=== PATIENT | female | born 1980 | race African-American/Black ===

== ENCOUNTER 2017-03-09 19:39 | Inpatient (IN) | payer OTHER, SELFPAY ==
[~2017-03-09 19:39] MED LIST: ISOVUE-370 76%-LOCM 1 ML ONE
[2017-03-09] MEDS ORDERED: Ondansetron HCl/PF 4 MG/2 ML Vial ONE (20:45)
[2017-03-09 20:48] LABS: #Eosinphils 0.1 thou/uL (0.0-0.7); #Lymphocytes 1.8 thou/uL (1.20-3.40); #Monocytes 0.4 thou/uL (0.11-0.59); #Neutrophils 5.2 thou/uL (1.40-6.50); %Basophils 0.2 % (0.0-1.0); %Eosinophils 0.9 % (0.0-10.0); %Lymphocytes 24.2 % (21.0-51.0); %Monocytes 5.7 % (0.0-10.0); Hematocrit 30.2 % (36.0-47.0); Mean Platelet Volume 7.5 fL (7.4-10.4); Red Blood Cell (RBC) Count 3.74 mill/uL (4.20-5.40); White Blood Cell (WBC) Count 7.6 thou/uL (4.8-10.8)
[2017-03-09 20:50] LABS: Bilirubin Negative (Negative); Blood, Urine Large (Negative); Glucose, Urine (Dipstick) 500 mg/dL (Negative); Ketone, Urine Negative (Negative); Nitrite Negative (Negative); Protein, Urine (Dipstick) 100 mg/dL (Neg-Trace); Urobilinogen 0.2 mg/dL (0.2-1.0)
[2017-03-09 20:52] LABS: Bacteria/HPF Rare-Few HPF (None Seen); Hyaline Casts/LPF 7-10 HYALINE CAST LPF (0-3 Hyaline); Squamous Epithelial 21-50 HPF (0-3)
[2017-03-09 21:01] LABS: Anion Gap 8 mmol/L (-14-95); T. Carbon Dioxide 20.8 mmol/L (1.0-85.0); pH (Venous) 7.379 (7.35-7.45); vO2 Saturation-calc 75.8 % (0.0-100.0)
[2017-03-09 21:02] LABS: RBC/HPF 21-50 HPF (0-3)
[2017-03-09 21:10] LABS: ALT (SGPT) Less than 7 U/L (8-55); AST (SGOT) 12 U/L (5-34); Alkaline Phosphatase 125 U/L (40-150); Anion Gap 17 mmol/L (10-20); BUN (Urea Nitrogen) 13 mg/dL (7.0-18.7); Bilirubin, Total Less than 0.2 mg/dL (0.2-1.2); Calc. Creatinine Clearance 0 mL/min (70-130); Calcium 8.9 mg/dL (7.8-10.44); Carbon Dioxide 18 mmol/L (22-29); Chloride 102 mmol/L (98-107); Estimated GFR-MDRD 66; Globulin 4.5 g/dL (2.4-3.5); Lipase 514 U/L (8-78); Magnesium 1.1 mg/dL (1.6-2.6); Protein, Total 7.9 g/dL (6.0-8.3)
--- NOTE | 2017-03-09 21:22 | CT ---
CT OF THE ABDOMEN AND PELVIS WITH IV CONTRAST 03/09/17 INDICATION: History of abdominal pain and pancreatitis. COMPARISON: Prior exam dated 02/12/17. FINDINGS: There is mild left basilar atelectasis. Peripheral infarcts involving the liver are stable. The gallbladder is surgically absent. The postsurgical change of a gastric bypass similar. There is mild inflammatory stranding surrounding the pancreas which appears slightly improved from t he comparison study. No drainable fluid collection is grossly evident. The adrenal glands, spleen, a nd kidneys appear within normal limits. There is a fibroid uterus within the lower pelvis. The bladder, rectum and perirectal soft tissues are unremarkable. No free fluid is evident. Small shankar wel is of normal caliber. No acute osseous abnormality is evident. Scattered degenerative and osteoa rthritic changes present. IMPRESSION: 1. Peripancreatic inflammatory stranding appears slightly less prominent than on the comparison study dated 02/12/17. There is persistent stranding suspicious for ongoing pancreatitis. No drainabl e fluid collection is evident. 2. Stable hepatic infarcts. 3. Fibroid uterus. 4. Other chronic findings as above. POS: EVER
[2017-03-09] MEDS ORDERED: Magnesium Sulfate 2 GM/100 ML BAG ONE (21:26)
[2017-03-09] MEDS ORDERED: Insulin Regular 300 UNITS/3 ML VIAL ONE (21:26)
--- NOTE | 2017-03-09 22:18 | PDOC.EVN ---
Event Note - Event Note Event Note: [id number] h&p dictated 1. Acute on chronic pancreatitis 2. Hypomagnesemia 3. h/o hpl 4. h/o hiv plan: see orders
[2017-03-09] MEDS ORDERED: Ondansetron HCl/PF 4 MG/2 ML Vial IVP PRN (22:19)
[2017-03-09] MEDS ORDERED: Dextrose 5% in Water 1,000 ML IV PRN (22:26)
[2017-03-09] MEDS ORDERED: Dextrose 50% Abboject 50 ML SYRINGE SLOW IVP PRN (22:26)
[2017-03-09] MEDS ORDERED: cefTRIAXone\\ROCEPHIN 1 GM VIAL ONE (22:43)
[2017-03-09] MEDS ORDERED: Sodium Chloride 0.9% 100 ML ONE (22:44)
[2017-03-09 23:06] LABS: ALT (SGPT) 7 U/L (8-55); AST (SGOT) 9 U/L (5-34); Alkaline Phosphatase 115 U/L (40-150); Anion Gap 16 mmol/L (10-20); BUN (Urea Nitrogen) 12 mg/dL (7.0-18.7); Bilirubin, Total Less than 0.2 mg/dL (0.2-1.2); Calc. Creatinine Clearance 0 mL/min (70-130); Calcium 8.6 mg/dL (7.8-10.44); Carbon Dioxide 18 mmol/L (22-29); Chloride 103 mmol/L (98-107); Estimated GFR-MDRD 73; Globulin 4.2 g/dL (2.4-3.5); Protein, Total 7.3 g/dL (6.0-8.3)
[2017-03-09] MEDS ORDERED: Fentanyl 100 MCG/2 ML VIAL ONE (23:35)
[2017-03-09] MEDS ORDERED: Magnesium Sulfate 4 GM in Sodium Chloride 0.9% 250 ML 250 ML IVPB SCH (23:59)
[2017-03-10 01:18] VITALS: BMI 35.3
[2017-03-10] MEDS: Sodium Chloride 0.9% 1,000 ML IV SCH ×4 (01:30→20:15)
[2017-03-10 05:49] LABS: #Eosinphils 0.1 thou/uL (0.0-0.7); #Lymphocytes 1.5 thou/uL (1.20-3.40); #Monocytes 0.4 thou/uL (0.11-0.59); #Neutrophils 3.7 thou/uL (1.40-6.50); %Basophils 0.8 % (0.0-1.0); %Lymphocytes 25.7 % (21.0-51.0); %Monocytes 7.6 % (0.0-10.0); Hematocrit 28.8 % (36.0-47.0); Mean Platelet Volume 7.7 fL (7.4-10.4); Red Blood Cell (RBC) Count 3.55 mill/uL (4.20-5.40); White Blood Cell (WBC) Count 5.8 thou/uL (4.8-10.8)
--- NOTE | 2017-03-10 07:20 | HP ---
DATE OF ADMISSION: 03/09/2017 CHIEF COMPLAINT: Abdominal pain. HISTORY OF PRESENT ILLNESS: Patient is a 37-year-old female with past medical history of hypertension; hyperlipidemia; HIV; pancreatitis; diabetes mellitus, type 2; noncompliance. Patient now came to ER due to abdominal pain, started all of sudden 3 days back, in epigastric and right upper quadrant, and mid abdominal pain, radiating to back, 10/10, cramping kind of pain, worsens with food, some relieve with pain medication. Complains of nausea and vomiting. Denies any fever. Denies any chills. Denies any chest pain. Denies any trouble breathing. Denies any dizziness. Denies any lightheadedness. PAST MEDICAL HISTORY: As per HPI. PAST SURGICAL HISTORY: Cholecystectomy, pancreatic cyst drainage done in couple of months back. SOCIAL HISTORY: Positive for smoking. Positive for drugs, last use 1 or 2 weeks back. Denies any alcohol. FAMILY HISTORY: Denies any heart problems. REVIEW OF SYSTEMS: Constitutional: Denies any fever. Denies any chills. Eyes : No vision problems. Ears: Denies any hearing loss. Neck: Denies any neck pain. Cardiovascular System: Denies any chest pain. Denies any palpitations. Respiratory System: Denies any cough. Gastrointestinal System: Positive for abdominal pain. Positive for nausea and vomiting. Genitourinary: Denies dysuria. Integumentary: Denies any rash. Psychiatric: Denies anxiety. All other review of systems are reviewed and are negative. PHYSICAL EXAMINATION: CONSTITUTIONAL/VITAL SIGNS: At the time of H and P performed, blood pressure is 130/70, afebrile, respiration rate 18, pulse oximetry 97% on room air. GENERAL APPEARANCE: The patient appears comfortable. HEENT: Pupils are equal and round. Anterior nares patent. Nose, normal. Teeth, intact. Tongue is moist. NECK: Supple, no JVD. CARDIOVASCULAR SYSTEM: S1 and S2 present. Regular rate and rhythm. No murmurs , no rubs, no gallops. RESPIRATORY SYSTEM: No wheezing, no rhonchi. Breath sounds present bilaterally. GASTROINTESTINAL: Abdomen is soft, nontender, no guarding, no organomegaly, no masses felt, mild tender to palpate the epigastric region. PSYCHIATRIC: Mood is appropriate at this time. INTEGUMENT: No obvious rash seen. GENITOURINARY: No suprapubic tenderness. No angle tenderness. LABORATORY DATA: At the time of H and P performed, sodium 136, potassium 2.8, chloride 108, CO2 of 18, BUN of 8, creatinine 1.12, calcium 1.08, glucose 426, albumin 3.4, globulin 4.5, lipase 514, mag 1.1. CT, positive for some mild pancreatitis. ASSESSMENT AND PLAN: The patient is a 37-year-old female. 1. Acute on chronic pancreatitis, keep the patient n.p.o. except medications and ice chips. We will start the patient on IV fluids, repeat lipase in the morning. Monitor the patient closely. Plan to consult GI to patient. 2. Hypomagnesemia. Replace mag. 3. Hypocalcemia and mild metabolic acidosis. Plan to start patient on p.o. sodium bicarbonate and will give one gram of calcium gluconate also. 4. History of diabetes mellitus, type 2. Monitor blood sugars, continue on insulin sliding scale. 5. History of human immunodeficiency virus. Continue home medications. 6. History of hypertension. Continue blood pressure medications. The case was discussed in detail with the patient. Patient is a FULL CODE. MTDD
[2017-03-10] MEDS: Heparin 5,000 UNITS/ML VIAL SC SCH ×3 (08:15→21:48)
[2017-03-10] MEDS: Pancrelipase DR 12000 1 CAP PO SCH ×4 (08:17→17:40)
[2017-03-10] MEDS: Gemfibrozil 600 MG TAB PO SCH ×3 (08:17→17:09)
--- NOTE | 2017-03-10 09:19 | PDOC.PN ---
- Subjective Encounter Start Date: 03/10/17 Encounter Start Time: 08:25 Subjective: C/o abdominal pain.. - Objective Resuscitation Status: Alert, in no acute distress Vital Signs & Weight: Vital Signs (12 hours) Temp Pulse Resp BP Pulse Ox 03/10/17 04:20 97.5 F L 67 16 158/86 H 98 03/10/17 00:55 97.9 F 61 18 100 03/10/17 00:45 97.9 F 58 L 18 168/88 H 100 Weight Weight 253 lb 1 oz I&O: 03/09/17 03/10/17 03/11/17 06:59 06:59 06:59 Intake Total 400 Balance 400 Result Diagrams: 03/10/17 04:56 03/09/17 22:33 Additional Labs: Accuchecks 03/10/17 03/10/17 03/09/17 05:59 00:03 22:07 POC Glucose 177 H 293 H 421 H Phys Exam - Physical Examination Constitutional: NAD HEENT: sclera anicteric Neck: no JVD Respiratory: clear to auscultation bilateral Cardiovascular: RRR Gastrointestinal: soft, non-tender (Bowel sounds decreased) Musculoskeletal: no edema Neurological: moves all 4 limbs Psychiatric: A&O x 3 Dx/Plan (1) Acute on chronic pancreatitis Code(s): K85.90 - ACUTE PANCREATITIS WITHOUT NECROSIS OR INFECTION, UNSP; K86.1 - OTHER CHRONIC PANCREATITIS Status: Acute Plan: Continue narcotics, hydration.. Comment: ?effect of HIV medication.. (2) Anemia, normocytic normochromic Code(s): D64.9 - ANEMIA, UNSPECIFIED Status: Chronic Comment: most likely HIV related. (3) Diabetes type 2, uncontrolled Code(s): E11.65 - TYPE 2 DIABETES MELLITUS WITH HYPERGLYCEMIA Status: Chronic Plan: continue sliding scale. (4) Dyslipidemia Code(s): E78.5 - HYPERLIPIDEMIA, UNSPECIFIED Status: Chronic (5) HIV (human immunodeficiency virus infection) Status: Acute - Plan -: Continue current management.. -: Try liquid diet. * .
[2017-03-10] MEDS: Sodium Bicarbonate Tab 325 MG TAB PO SCH ×2 (10:25→20:16)
[2017-03-10] MEDS: NIFEdipine XL 30 MG TAB PO SCH (10:25)
[2017-03-10] MEDS ORDERED: COBICISTAT PO SCH (12:00)
[2017-03-10] MEDS ORDERED: DARUNAVIR PO SCH (12:00)
[2017-03-10] MEDS: Famotidine/PF 20 mg/2ml Vial SLOW IVP SCH ×2 (12:28→20:15)
[2017-03-10] MEDS: HumaLOG 300 UNITS/3 ML VIAL SC PRN (17:41)
[2017-03-10] MEDS: Ibuprofen 200 MG TAB PO PRN (20:16)
--- NOTE | 2017-03-10 22:55 | CON ---
DATE OF CONSULTATION: 03/10/2017 GASTROENTEROLOGY CONSULTATION CHIEF COMPLAINT: Abdominal pain. HISTORY OF PRESENT ILLNESS: Ms. Mendoza has had chronic recurrent pancreatitis. She presents again with a flare of epigastric aching and severe abdominal pain over the last 3 days. Her pain does go away between episodes, but she has been having episodes about monthly. She did have nausea prior t o admission. Her pain radiates towards her back. She took some medicine today and did throw up aft er that. She has had no fever. No chest pain or shortness of breath. She is ambulating without di fficulty. PAST MEDICAL HISTORY: Chronic pancreatitis, HIV with low CD4 count, hypertriglyceridemia. PAST SURGICAL HISTORY: Cholecystectomy with cystogastrostomy. FAMILY HISTORY: Negative for pancreatitis or GI malignancies. SOCIAL HISTORY: Negative for alcohol. She is a smoker. ALLERGIES: ROBERT INHIBITORS, ACETAMINOPHEN, HYDROCODONE, TRAMADOL. CURRENT INPATIENT MEDICATIONS: Include famotidine, gemfibrozil, darunavir with cobicistat, heparin subcutaneously, Creon, nifedipine, and pantoprazole. OUTPATIENT MEDICATIONS: Metformin, hydralazine, pantoprazole, Creon, nifedipine, magnesium oxide, i nsulin, ibuprofen, gemfibrozil, dolutegravir, darunavir and cobicistat. REVIEW OF SYSTEMS: Negative x10 systems reviewed except as stated in the history of present illness . PHYSICAL EXAMINATION: VITAL SIGNS: Temperature 98.5, pulse 60, blood pressure 190/65. GENERAL: In no acute distress. She is alert and oriented x3. HEENT: Eyes have no scleral icterus. Oropharynx is clear without lesions. NECK: No cervical or supraclavicular lymphadenopathy. LUNGS: Clear to auscultation bilaterally. HEART: Regular rate and rhythm. ABDOMEN: She has tenderness in the epigastric region without guarding. Her bowel sounds are presen t. EXTREMITIES: No lower extremity edema. LABORATORY DATA: White blood cell count 5.8, hemoglobin 9.7, and platelets 380. Creatinine is 1.03 , bilirubin 0.2, AST 12, ALT 7, alkaline phosphatase 125. Lipase is 514 last night. IMPRESSION: Acute flare of chronic pancreatitis and pancreatitis is idiopathic. She does have dean n immunodeficiency virus with low CD4 count. Medication related pancreatitis or human immunodeficie ncy virus related pancreatitis have been considered. Her current episode is mild pancreatitis witho ut secondary organ failure. RECOMMENDATIONS: 1. She has been started on clear liquid diet and she can advance as she tolerates. 2. She is receiving IV fluids and pain control. 3. Continue pancreatic enzymes.
[2017-03-11] MEDS: Sodium Chloride 0.9% 1,000 ML IV SCH ×4 (01:59→21:51)
[2017-03-11] MEDS: Ibuprofen 200 MG TAB PO PRN ×2 (03:39→12:32)
[2017-03-11] MEDS: Sodium Bicarbonate Tab 325 MG TAB PO SCH ×2 (07:53→20:31)
[2017-03-11] MEDS: Gemfibrozil 600 MG TAB PO SCH (07:54)
[2017-03-11] MEDS: NIFEdipine XL 30 MG TAB PO SCH (07:54)
[2017-03-11] MEDS: Pancrelipase DR 12000 1 CAP PO SCH ×3 (08:42→16:21)
[2017-03-11] MEDS: DARUNAVIR PO SCH (08:43)
[2017-03-11] MEDS: COBICISTAT PO SCH (08:43)
[2017-03-11] MEDS: Heparin 5,000 UNITS/ML VIAL SC SCH ×3 (09:54→20:31)
[2017-03-11] MEDS: Famotidine/PF 20 mg/2ml Vial SLOW IVP SCH ×2 (09:54→21:50)
--- NOTE | 2017-03-11 10:59 | PDOC.PN ---
- Subjective Encounter Start Date: 03/11/17 Encounter Start Time: 10:57 Patient seen and examined. No new complaints. No overnight events. still having pain and even on swallowing the pills.' No N/V. No diarhea or constipation. - Objective MAR Reviewed: Yes Vital Signs & Weight: Vital Signs (12 hours) Temp Pulse Resp BP Pulse Ox 03/11/17 08:00 98 F 86 18 99 03/11/17 07:59 98 F 86 18 147/96 H 99 03/11/17 07:54 73 03/11/17 07:53 73 03/11/17 04:04 98 F 73 16 141/92 H 97 03/10/17 23:51 97.9 F 74 18 127/83 98 Weight Weight 253 lb 1 oz I&O: 03/10/17 03/11/17 03/12/17 06:59 06:59 06:59 Intake Total 400 1390 Balance 400 1390 Result Diagrams: 03/10/17 04:56 03/09/17 22:33 Additional Labs: Accuchecks 03/11/17 03/10/17 03/10/17 06:04 21:08 17:02 POC Glucose 281 H 245 H 265 H 03/10/17 12:16 POC Glucose 295 H Phys Exam - Physical Examination Constitutional: NAD HEENT: PERRLA, sclera anicteric Neck: supple Respiratory: no wheezing, no rales Cardiovascular: RRR Gastrointestinal: soft, positive bowel sounds Musculoskeletal: no edema Neurological: non-focal Psychiatric: normal affect, A&O x 3 Skin: no rash Dx/Plan (1) Acute on chronic pancreatitis Code(s): K85.90 - ACUTE PANCREATITIS WITHOUT NECROSIS OR INFECTION, UNSP; K86.1 - OTHER CHRONIC PANCREATITIS Status: Acute Comment: ?effect of HIV medication.. (2) Pancreatitis, chronic Code(s): K86.1 - OTHER CHRONIC PANCREATITIS Status: Acute (3) Diabetes type 2, uncontrolled Code(s): E11.65 - TYPE 2 DIABETES MELLITUS WITH HYPERGLYCEMIA Status: Chronic (4) Dyslipidemia Code(s): E78.5 - HYPERLIPIDEMIA, UNSPECIFIED Status: Chronic (5) HTN (hypertension) Code(s): I10 - ESSENTIAL (PRIMARY) HYPERTENSION Status: Chronic Qualifiers: - Plan cont current plan of care, DVT proph w/heparin * . continue clear liquid diet. stop gemfibrozil check lipid panel in am check LFTs reduce IV fluids to 70cc/hr. AM labs. continue pain meds. start low dose of Levemir.
[2017-03-11] MEDS: HumaLOG 300 UNITS/3 ML VIAL SC PRN (20:36)
[2017-03-11] MEDS: Insulin Detemir 100 UNITS/ML 4 UNITS in Pre-Filled Syringe 1 EACH SC SCH (20:37)
[2017-03-12] MEDS: Ibuprofen 200 MG TAB PO PRN ×3 (01:47→23:24)
[2017-03-12 04:38] LABS: #Eosinphils 0.1 thou/uL (0.0-0.7); #Lymphocytes 1.7 thou/uL (1.20-3.40); #Monocytes 0.3 thou/uL (0.11-0.59); %Basophils 0.2 % (0.0-1.0); %Eosinophils 1.9 % (0.0-10.0); %Monocytes 5.3 % (0.0-10.0); Red Blood Cell (RBC) Count 3.98 mill/uL (4.20-5.40); White Blood Cell (WBC) Count 6.2 thou/uL (4.8-10.8)
[2017-03-12 04:56] LABS: ALT (SGPT) 10 U/L (8-55); AST (SGOT) 18 U/L (5-34); Alkaline Phosphatase 168 U/L (40-150); Anion Gap 16 mmol/L (10-20); BUN (Urea Nitrogen) Less than 4 mg/dL (7.0-18.7); Bilirubin, Total 0.2 mg/dL (0.2-1.2); Calc. Creatinine Clearance 191 mL/min (70-130); Carbon Dioxide 18 mmol/L (22-29); Chloride 102 mmol/L (98-107); Cholesterol 124 mg/dl (< 200 Desired); Estimated GFR-MDRD Greater than 90; Globulin 4.7 g/dL (2.4-3.5); LDL Cholesterol, Calculated 59 mg/dL; Lipase 119 U/L (8-78)
--- NOTE | 2017-03-12 05:46 | PRG ---
DATE OF SERVICE: 03/11/2017 SUBJECTIVE: Ms. Mendoza has had persistent epigastric pain today. OBJECTIVE: VITAL SIGNS: Temperature is 98.5, pulse 75, blood pressure 163/97. GENERAL: She is in no acute distress. She is awake and alert. LUNGS: Clear to auscultation bilaterally. HEART: Regular rate and rhythm. ABDOMEN: Tender in the epigastric region without guarding. Bowel sounds are present. EXTREMITIES: No lower extremity edema. LABORATORY DATA: No new labs today. IMPRESSION: 1. Acute flare of chronic pancreatitis. 2. History of pseudocyst, status post cyst gastrostomy. 3. Human immunodeficiency virus. RECOMMENDATIONS: 1. She will reduce her oral intake to just some ice chips and a few sips of juice. Hopefully, she will have some improvement today and can advance her diet back to more liberal clear liquids tomorro w. 2. Dr. Santos should be back tomorrow.
[2017-03-12] MEDS: HumaLOG 300 UNITS/3 ML VIAL SC PRN ×3 (06:40→17:56)
[2017-03-12] MEDS: Heparin 5,000 UNITS/ML VIAL SC SCH ×3 (09:12→20:19)
[2017-03-12] MEDS: Pancrelipase DR 12000 1 CAP PO SCH ×3 (09:12→17:02)
[2017-03-12] MEDS: NIFEdipine XL 30 MG TAB PO SCH (09:16)
[2017-03-12] MEDS: COBICISTAT PO SCH (09:17)
[2017-03-12] MEDS: Sodium Bicarbonate Tab 325 MG TAB PO SCH ×2 (09:17→20:19)
[2017-03-12] MEDS: DARUNAVIR PO SCH (09:17)
[2017-03-12] MEDS: Famotidine/PF 20 mg/2ml Vial SLOW IVP SCH ×2 (09:18→20:21)
[2017-03-12] MEDS: Sodium Chloride 0.9% 1,000 ML IV SCH ×3 (09:18→23:26)
[2017-03-12] MEDS ORDERED: Sodium Chloride 0.9% 1,000 ML IV SCH (11:25)
--- NOTE | 2017-03-12 11:27 | PDOC.PN ---
- Subjective Encounter Start Date: 03/12/17 Encounter Start Time: 11:25 Patient seen and examined. No new complaints. No overnight events. feels better today and wants to try regular diet. Abd pain better No nausea reported. - Objective MAR Reviewed: Yes Vital Signs & Weight: Vital Signs (12 hours) Temp Pulse Resp BP BP Pulse Ox 03/12/17 09:16 92 129/76 03/12/17 09:15 92 03/12/17 08:00 97.2 F L 92 15 129/76 97 03/12/17 04:41 98.9 F 94 16 109/63 98 03/12/17 01:49 98.9 F 89 14 131/76 97 Weight Weight 253 lb 1 oz I&O: 03/11/17 03/12/17 03/13/17 06:59 06:59 06:59 Intake Total 1390 1025 Balance 1390 1025 Result Diagrams: 03/12/17 04:29 03/12/17 04:29 Additional Labs: Accuchecks 03/12/17 03/12/17 03/12/17 11:02 06:15 01:55 POC Glucose 317 H 250 H 235 H 03/11/17 03/11/17 20:35 11:11 POC Glucose 354 H 375 H Phys Exam - Physical Examination Constitutional: NAD HEENT: sclera anicteric Neck: supple Respiratory: no wheezing, no rales Cardiovascular: RRR Gastrointestinal: soft Musculoskeletal: no edema Neurological: non-focal, moves all 4 limbs Psychiatric: normal affect, A&O x 3 Skin: no rash Dx/Plan (1) Acute on chronic pancreatitis Code(s): K85.90 - ACUTE PANCREATITIS WITHOUT NECROSIS OR INFECTION, UNSP; K86.1 - OTHER CHRONIC PANCREATITIS Status: Acute Comment: ?effect of HIV medication.. (2) Pancreatitis, chronic Code(s): K86.1 - OTHER CHRONIC PANCREATITIS Status: Acute (3) Diabetes type 2, uncontrolled Code(s): E11.65 - TYPE 2 DIABETES MELLITUS WITH HYPERGLYCEMIA Status: Chronic (4) Dyslipidemia Code(s): E78.5 - HYPERLIPIDEMIA, UNSPECIFIED Status: Chronic (5) HTN (hypertension) Code(s): I10 - ESSENTIAL (PRIMARY) HYPERTENSION Status: Chronic Qualifiers: (6) HIV (human immunodeficiency virus infection) Status: Acute - Plan cont current plan of care * . plan to advance diet to regular diet today. F/u with GI will reduce IV fluids. Continue pain control and home meds.
[2017-03-12] MEDS: Insulin Detemir 100 UNITS/ML 4 UNITS in Pre-Filled Syringe 1 EACH SC SCH (20:21)
--- NOTE | 2017-03-13 00:16 | PRG ---
DATE OF SERVICE: 03/12/2017 SUBJECTIVE: Ms. Mendoza is still having quite a bit of pain. She is getting 2 mg of morphine every 4 hours but says that is not working. OBJECTIVE: VITAL SIGNS: Temperature is 98, pulse 68, blood pressure 128/79. She is rocking in the bed. She i s in some distress. LUNGS: Clear. HEART: Regular rate and rhythm without clicks or murmurs. ABDOMEN: Soft and nontender. There is no rebound. There is no guarding. LABORATORY STUDIES: White count 6.2, hemoglobin 10, MCV 77, platelet count 407. Sodium is 132, pot assium 3.6. Bicarbonate is 18. BUN and creatinine 4 and 0.73, glucose is 352, alkaline phosphatase 168, 115 on the , down from 186 on 09/14. AST and ALT are 18 and 10, bilirubin 0.2, albu min is 3.3. Triglycerides 217. Lipase is still 119 today. It was 514 on the . ASSESSMENT: Chronic recurrent pancreatitis, unclear etiology in a HIV positive patient with CD4 cou nt that is basically undetectable. Differential diagnosis would include medication effect or opport unistic infection. The patient has had a previous empiric cholecystectomy, although she never had a bnormal LFTs before. Differential diagnosis would include medication effect although her HIV medici jasmina were changed just about a week ago. She has not been able to get her Creon which may have been playing some role, but she states she has gotten Medicaid now so she will be able to get that medica tion. RECOMMENDATIONS: 1. We will increase her pain control, 2 mg of morphine q.2 hours. 2. Increase IV fluids. 3. As an outpatient, I am going to get her set up for an EUS now that she has Medicaid, and I can g et her referred to a center where that can be done.
[2017-03-13] MEDS: HumaLOG 300 UNITS/3 ML VIAL SC PRN ×3 (06:21→21:22)
[2017-03-13] MEDS ORDERED: Insulin Detemir 100 UNITS/ML 8 UNITS in Pre-Filled Syringe 1 EACH SC SCH (07:43)
--- NOTE | 2017-03-13 07:43 | PDOC.PN ---
- Subjective Encounter Start Date: 03/13/17 Encounter Start Time: 07:41 Subjective: Still with moderate abdominal pain and mild nause - Objective MAR Reviewed: Yes Vital Signs & Weight: Vital Signs (12 hours) Temp Pulse Resp BP BP Pulse Ox 03/13/17 05:24 98.0 F 91 16 118/67 97 03/13/17 01:20 98.0 F 95 16 118/70 98 03/12/17 20:20 98 131/74 03/12/17 20:00 99.1 F 98 20 98 Weight Weight 255 lb 4.725 oz I&O: 03/12/17 03/13/17 03/14/17 06:59 06:59 06:59 Intake Total 1025 1870 Balance 1025 1870 Result Diagrams: 03/12/17 04:29 03/12/17 04:29 Additional Labs: Accuchecks 03/13/17 03/13/17 03/12/17 05:50 00:39 20:15 POC Glucose 295 H 285 H 262 H 03/12/17 03/12/17 16:59 11:02 POC Glucose 352 H 317 H Dx/Plan (1) HIV (human immunodeficiency virus infection) Status: Acute (2) Acute on chronic pancreatitis Code(s): K85.90 - ACUTE PANCREATITIS WITHOUT NECROSIS OR INFECTION, UNSP; K86.1 - OTHER CHRONIC PANCREATITIS Status: Acute Comment: ?effect of HIV medication.. (3) Diabetes type 2, uncontrolled Code(s): E11.65 - TYPE 2 DIABETES MELLITUS WITH HYPERGLYCEMIA Status: Chronic (4) Dyslipidemia Code(s): E78.5 - HYPERLIPIDEMIA, UNSPECIFIED Status: Chronic - Plan Acute on Chronic Pancreatitis * appreciate GI input - needs outpt EUS * prn anlagesics * IVFs * ADAT * check labs in AM
[2017-03-13] MEDS: Famotidine/PF 20 mg/2ml Vial SLOW IVP SCH ×2 (08:43→21:17)
[2017-03-13] MEDS: Pancrelipase DR 12000 1 CAP PO SCH ×3 (08:44→16:42)
[2017-03-13] MEDS: Heparin 5,000 UNITS/ML VIAL SC SCH ×3 (08:44→21:17)
[2017-03-13] MEDS: NIFEdipine XL 30 MG TAB PO SCH (08:45)
[2017-03-13] MEDS: DARUNAVIR PO SCH (08:49)
[2017-03-13] MEDS: COBICISTAT PO SCH (08:49)
[2017-03-13] MEDS: Sodium Bicarbonate Tab 325 MG TAB PO SCH ×2 (08:52→21:18)
[2017-03-13] MEDS: Sodium Chloride 0.9% 1,000 ML IV SCH ×2 (11:09→21:17)
[2017-03-13] MEDS: Ibuprofen 200 MG TAB PO PRN (22:25)
--- NOTE | 2017-03-14 00:50 | PRG ---
DATE OF SERVICE: 03/13/2017 SUBJECTIVE: Ms. Mendoza is feeling a little bit better today. She states that [facility]. OBJECTIVE: VITAL SIGNS: Temperature 97, pulse 98 and blood pressure 123/81. ABDOMEN: Soft and nontender . LABORATORY DATA: Today none. ASSESSMENT: Recurrent pancreatitis, improving. PLAN: We will agree with checking the lipase tomorrow if that continues to drop down. Pain continu ed to improve with transition to oral pain medications and see if we can get her home on her pancrea tic enzymes and see if we can get an outpatient EUS setup.
[2017-03-14] MEDS: HumaLOG 300 UNITS/3 ML VIAL SC PRN ×2 (05:14→11:56)
[2017-03-14 05:55] LABS: Anion Gap 16 mmol/L (10-20); BUN (Urea Nitrogen) 4 mg/dL (7.0-18.7); Calc. Creatinine Clearance 176 mL/min (70-130); Calcium 8.6 mg/dL (7.8-10.44); Carbon Dioxide 15 mmol/L (22-29); Chloride 106 mmol/L (98-107); Estimated GFR-MDRD Greater than 90; Magnesium 1.1 mg/dL (1.6-2.6)
[2017-03-14] MEDS: Famotidine/PF 20 mg/2ml Vial SLOW IVP SCH (08:03)
[2017-03-14] MEDS: DARUNAVIR PO SCH (08:04)
[2017-03-14] MEDS: COBICISTAT PO SCH (08:04)
[2017-03-14] MEDS: Sodium Bicarbonate Tab 325 MG TAB PO SCH (08:07)
[2017-03-14] MEDS: Pancrelipase DR 12000 1 CAP PO SCH ×2 (08:09→11:21)
[2017-03-14] MEDS: NIFEdipine XL 30 MG TAB PO SCH (08:10)
[2017-03-14] MEDS: Heparin 5,000 UNITS/ML VIAL SC SCH (08:10)
[2017-03-14] MEDS: Sodium Chloride 0.9% 1,000 ML IV SCH (08:13)
[2017-03-14] MEDS ORDERED: Insulin Detemir 100 UNITS/ML 15 UNITS in Pre-Filled Syringe 1 EACH SC SCH (09:00)
[2017-03-14 09:07] VITALS: BP 102/70; TEMP 98.8
--- NOTE | 2017-03-14 14:44 | PDOC.PN ---
- Subjective Encounter Start Date: 03/14/17 Encounter Start Time: 09:00 Subjective: no abd pain or nausea, feels better -: tolerating oral diet - Objective MAR Reviewed: Yes Vital Signs & Weight: Vital Signs (12 hours) Temp Pulse Resp BP BP Pulse Ox 03/14/17 09:06 98.8 F 88 18 102/70 100 03/14/17 08:10 89 127/89 03/14/17 08:00 98.8 F 88 18 98 Weight Weight 255 lb 4.725 oz I&O: 03/13/17 03/14/17 03/15/17 06:59 06:59 06:59 Intake Total 1870 360 240 Balance 1870 360 240 Result Diagrams: 03/12/17 04:29 03/14/17 04:30 Additional Labs: Accuchecks 03/14/17 03/14/17 03/13/17 11:28 04:15 19:24 POC Glucose 254 H 243 H 206 H 03/13/17 16:46 POC Glucose 319 H Phys Exam - Physical Examination HEENT: PERRLA, moist MMs Neck: no JVD, supple Respiratory: no wheezing, no rales Cardiovascular: RRR, no significant murmur Gastrointestinal: soft, non-tender, no distention, positive bowel sounds Musculoskeletal: no edema, pulses present Neurological: non-focal, moves all 4 limbs Psychiatric: A&O x 3 Dx/Plan (1) Acute on chronic pancreatitis Code(s): K85.90 - ACUTE PANCREATITIS WITHOUT NECROSIS OR INFECTION, UNSP; K86.1 - OTHER CHRONIC PANCREATITIS Status: Acute (2) HIV (human immunodeficiency virus infection) Status: Chronic (3) Anemia, normocytic normochromic Code(s): D64.9 - ANEMIA, UNSPECIFIED Status: Chronic Comment: most likely HIV related. (4) Diabetes type 2, uncontrolled Code(s): E11.65 - TYPE 2 DIABETES MELLITUS WITH HYPERGLYCEMIA Status: Chronic Qualifiers: Diabetes mellitus complication status: with unspecified complications Diabetes mellitus mcc insulin use: with termite treater helper use Qualified Code(s) : E11.8 - Type 2 diabetes mellitus with unspecified complications; E11.65 - Type 2 diabetes mellitus with hyperglycemia; Z79.4 - medical terminologist (current) use of insulin (5) Dyslipidemia Code(s): E78.5 - HYPERLIPIDEMIA, UNSPECIFIED Status: Chronic (6) HTN (hypertension) Code(s): I10 - ESSENTIAL (PRIMARY) HYPERTENSION Status: Chronic Qualifiers: Hypertension type: essential hypertension (7) Obesity (BMI 30-39.9) Code(s): E66.9 - OBESITY, UNSPECIFIED Status: Chronic - Plan d/w , dc pt home -: is on new HIV meds now -: outpt endoscopic usg via office -: hemostable * .
--- NOTE | 2017-03-14 21:05 | PRG ---
DATE OF SERVICE: 03/14/2017 SUBJECTIVE: Ms. Mendoza feels well today. She is eating. She has not had taken any narcotic pain medicines. She states she can go home with p.o. pain medicines. OBJECTIVE: VITAL SIGNS: Temperature is 98 and blood pressure 102/70. LUNGS: Clear. HEART: Regular rate and rhythm. ABDOMEN: Nontender. LABORATORY DATA: BMP normal. Glucose 243. ASSESSMENT: 1. Diabetes, per Internal Medicine. 2. Chronic pancreatitis, possibly related to human immunodeficiency virus medications or opportunis tic infection. Patient was informed that she could have insurance here in the next 2-3 weeks in [place]. PLAN: 1. She can go home with her Creon, low fat diet, HIV medications and diabetes regimen per Internal Medicine recommendations. 2. We will contact her and get her set up in the outpatient setting for a few weeks when she has [place], so we can go ahead and get her endoscopic ultrasound of the pancreas with regard to recurren t pancreatitis.
--- NOTE | 2017-03-15 01:50 | DIS ---
DATE OF ADMISSION: 03/09/2017 DATE OF DISCHARGE: 03/14/2017 DISCHARGE DISPOSITION: To home. PRIMARY DISCHARGE DIAGNOSIS: Recurrent pancreatitis, resolved. SECONDARY DISCHARGE DIAGNOSES: Chronic anemia; human immunodeficiency virus status; diabetes mellit us, type 2; dyslipidemia; hypertension and obesity. PROCEDURES DONE DURING HOSPITALIZATION: CT of the abdomen and pelvis done showed peripancreatic inf lammatory stranding. No drainable fluid collection was seen. The stable hepatic infarct seen, fibr oid uterus was again seen. H\T\H 10 and 31, platelet count is 407, MCV is 80 and an initial lipase of 514, albumin 3.4. DISCHARGE MEDICATIONS: HIV medications per Dr. Quinn' new prescription. Lopid 600 mg p.o. twice da jennifer, Levemir 35 units subcu every day and 30 units subcu q.p.m., Procardia XL 30 mg p.o. daily, Creo n 12,000 units 5 capsules 3 times daily, Protonix 40 mg p.o. daily, hydralazine 25 mg p.o. 3 times d aily, metformin 500 mg p.o. twice daily. ALLERGIES: ROBERT INHIBITORS, TYLENOL, LISINOPRIL, HYDROCODONE, ULTRAM. INPATIENT CONSULTS: Dr. Goodwin/Dr. Santos for Gastroenterology. BRIEF COURSE DURING HOSPITALIZATION: The patient initially got admitted with complaints of abdomina l pain. She has known history of pancreatitis and was admitted for recurrent acute pancreatitis. S he was treated in a standard fashion with generous IV fluids. She was kept n.p.o. initially and was slowly weaned into solid food. The patient's HIV medications had been changed recently and the pat ient has not refilled her medications and needs to continue the same per Dr. Quinn' advice. She gladys l require outpatient endoscopic ultrasound via Dr. Santos office. The patient is waiting for her in [facility] to kick in to get the same arranged via Dr. Santos office. She is otherwise hemodynamically stable. She has been cleared by Dr. Santos for discharge. She was counseled with regards to medic ation compliance. Please see a [id number] documentation on [facility] for the day of discharge.
== END 2017-03-14 14:00 | disposition home or self-care (01) | DRG 439 ==
LOC: ERS 19:39 → ERHOLD 21:54 → 2SE 03-10 00:55 → T4-A 03-13 12:40
PROVIDERS: ADMIT Internal Medicine; ATTEND Internal Medicine
DX: K85.00 Idiopathic acute pancreatitis without necrosis or infection (principal); E87.2 Acidosis; E83.42 Hypomagnesemia; D64.9 Anemia, unspecified; E11.65 Type 2 diabetes mellitus with hyperglycemia; Z91.14 Patient's other noncompliance with medication regimen; I10 Essential (primary) hypertension; Z21 Asymptomatic human immunodeficiency virus [HIV] infection status; K86.1 Other chronic pancreatitis; E78.5 Hyperlipidemia, unspecified; E66.9 Obesity, unspecified; Z68.35 Body mass index [BMI] 35.0-35.9, adult; Z90.49 Acquired absence of other specified parts of digestive tract; E83.51 Hypocalcemia; E86.0 Dehydration; F17.210 Nicotine dependence, cigarettes, uncomplicated
CPT/HCPCS: 36415; 36416; 74177; 80048; 80053; 80061; 81003; 81015; 81025; 82330; 82803; 83690; 83735; 85025; 93005; 96361; 96365; 96372; 96375; A4216; J0696; J1644; J1815; J2270; J2405; J3010; J3475; J7050; S0028

== ENCOUNTER 2018-01-05 14:29 | Emergency (ER) | payer MEDICAID, OTHER ==
[2018-01-05] MEDS ORDERED: ISOVUE-370 76%-LOCM 1 ML ONE (14:58)
[2018-01-05 15:01] LABS: Hemoglobin 9.4 g/dL (12.0-16.0); Mean Corpuscular HGB CONC 30.7 g/dL (32.0-36.0); Mean Corpuscular Hemoglobin 20.9 pg (27.0-31.0); Mean Platelet Volume 8.9 fL (7.4-10.4); Platelet Count 411 thou/uL (130-400); RBC Distribution Width 16.9 % (11.5-14.5); Red Blood Cell (RBC) Count 4.49 mill/uL (4.20-5.40); White Blood Cell (WBC) Count 8.2 thou/uL (4.8-10.8)
[2018-01-05 15:04] LABS: Bilirubin Negative (Negative); Blood, Urine Negative (Negative); Clarity CLEAR (Clear); Glucose, Urine (Dipstick) >=1000 mg/dL (Negative); Leukocyte Negative (Negative); Nitrite Negative (Negative); Protein, Urine (Dipstick) Negative (Neg-Trace); Specific Gravity, Urine 1.035 (1.002-1.036); Urobilinogen 0.2 mg/dL (0.2-1.0); pH, Urine 6.5 (5.0-9.0)
[2018-01-05 15:19] LABS: ALT (SGPT) Less than 7 U/L (8-55); AST (SGOT) 7 U/L (5-34); Albumin 3.6 g/dL (3.5-5.0); Alkaline Phosphatase 109 U/L (40-150); Anion Gap 10 mmol/L (10-20); BUN (Urea Nitrogen) 11 mg/dL (7.0-18.7); Bilirubin, Total 0.2 mg/dL (0.2-1.2); Calc. Creatinine Clearance 0 mL/min (70-130); Calcium 9.1 mg/dL (7.8-10.44); Carbon Dioxide 20 mmol/L (22-29); Chloride 100 mmol/L (98-107); Estimated GFR-MDRD 64; Globulin 4.5 g/dL (2.4-3.5); Glucose 478 mg/dL (70-105); Lipase 49 U/L (8-78); Potassium 4.2 mmol/L (3.5-5.1); Protein, Total 8.1 g/dL (6.0-8.3); Sodium 126 mmol/L (136-145)
[2018-01-05 15:22] LABS: #Eosinphils 0.1 thou/uL (0.0-0.7); #Lymphocytes 2.7 thou/uL (1.20-3.40); #Monocytes 0.5 thou/uL (0.11-0.59); #Neutrophils 4.9 thou/uL (1.40-6.50); %Basophils 0.4 % (0.0-1.0); %Eosinophils 1.5 % (0.0-10.0); %Lymphocytes 32.6 % (21.0-51.0); %Monocytes 5.7 % (0.0-10.0); %Neutrophils 59.8 % (42.0-75.0); Anisocytosis SLIGHT = 6-15 cells (100X) (0-5/hpf); Hypochromia SLIGHT = 6-15 cells (100X) (0-5/hpf); MDiff Complete? YES; Microcytosis SLIGHT = 6-15 cells (100X) (0-5/hpf); Ovalocytes SLIGHT = 2-5 cells (100X) (0-1/hpf); PLT Morphology Comment Appears Increased; Tear Drops SLIGHT = 2-5 cells (100X) (0-1/hpf)
[2018-01-05 15:56] LABS: Pregu Control Background? CLEAR/WHITE (CLR/WHITE); Pregu Control Bar Appear? YES (CONTROL BAR); Specific Gravity 1.035 (1.002-1.036)
[2018-01-05 15:57] LABS: Pregnancy Test - Urine (BHCG) Negative (Negative)
--- NOTE | 2018-01-05 18:21 | CT ---
CT ABDOMEN AND PELVIS WITH CONTRAST: Technique: Multiple contiguous axial images were obtained through the abdomen and pelvis with IV enha ncement. Indication: Abdominal pain. History of prior pancreatitis. Comparison: 03-09-17 FINDINGS: Lung bases are clear. Liver and spleen unremarkable. The areas of lucency in the peripheral liver on the prior exam which w ere described as hepatic infarcts are not seen today. Review of the pancreas shows cystic lesions in the body and tail of the pancreas which have developed since the prior exam consistent with pseudocysts. In the axial plane there appear to be at least thr ee separate pseudocysts, one measuring approximately 1.8 cm, and another oblong shape one measuring u p to 3 cm and another in the tail measuring 2.0 cm. No evidence of peripancreatic edema. There is mild peripancreatic stranding which could be acute or c hronic. Adrenal glands are unremarkable. Kidneys are unremarkable with small cystic lesions in the superior l eft kidney, stable. Small bowel loops show nonspecific distention which could represent ileus. Appendix appears normal. S tool and gas throughout the colon. Images through the pelvis again show an enlarged heterogeneous benton iris with numerous rounded calcifications suggesting numerous uterine fibroids. There is a new cystic mass seen posterior to the uterus today which appears to represent a multilocul ated cystic mass, presumably ovarian. This measures up to 5 cm diameter. Recommend correlation with s briana HCG to exclude atrophic. IMPRESSION: 1. There are new pancreatic pseudocysts when compared to the prior exam. 2. The uterus is enlarged and very heterogeneous with numerous partially calcified fibroids within th e myometrium. However, there is a now a new multiloculated cystic mass posterior to the uterus which is presumably ovarian in origin. Recommend correlation with serum HCG to exclude ectopic. If HCG is n egative, suggest short term follow up pelvic ultrasound in 2-4 weeks. There may be small amount of fr ee fluid in the deep pelvis. 3. The hepatic infarcts described previously are no longer apparent. POS: [facility]
[2018-01-05] MEDS ORDERED: Insulin Regular 300 UNITS/3 ML VIAL ONE (18:49)
[2018-01-05] MEDS ORDERED: Metoclopramide HCl 10 MG/2 ML VIAL ONE (18:49)
== END 2018-01-05 19:55 | disposition left against medical advice (07) ==
LOC: ERS 14:29
DX: E11.43 Type 2 diabetes mellitus with diabetic autonomic (poly)neuropathy (principal); K31.84 Gastroparesis; K86.3 Pseudocyst of pancreas; I10 Essential (primary) hypertension; B20 Human immunodeficiency virus [HIV] disease
CPT/HCPCS: 36415; 74177; 80053; 81003; 81025; 82150; 83690; 85025; 96361; 96372; 96374; J1815; J2765

== ENCOUNTER 2018-04-22 21:27 | Emergency (ER) | payer OTHER ==
[2018-04-22 22:18] LABS: #Basophils 0.1 thou/uL (0.0-0.2); #Eosinphils 0.1 thou/uL (0.0-0.7); #Lymphocytes 1.5 thou/uL (1.20-3.40); #Monocytes 0.5 thou/uL (0.11-0.59); #Neutrophils 3.8 thou/uL (1.40-6.50); %Basophils 1.3 % (0.0-1.0); %Eosinophils 0.9 % (0.0-10.0); %Lymphocytes 25.3 % (21.0-51.0); %Monocytes 8.1 % (0.0-10.0); %Neutrophils 64.4 % (42.0-75.0); Hemoglobin 9.4 g/dL (12.0-16.0); Mean Corpuscular HGB CONC 29.9 g/dL (32.0-36.0); Mean Corpuscular Hemoglobin 20.5 pg (27.0-31.0); Mean Corpuscular Volume 68.4 fL (78.0-98.0); Mean Platelet Volume 8.6 fL (7.4-10.4); Platelet Count 438 thou/uL (130-400); RBC Distribution Width 16.6 % (11.5-14.5); Red Blood Cell (RBC) Count 4.58 mill/uL (4.20-5.40); White Blood Cell (WBC) Count 5.9 thou/uL (4.8-10.8)
[2018-04-22] MEDS ORDERED: Ondansetron PF 4 MG/2 ML Vial ONE (22:18)
[2018-04-22] MEDS ORDERED: Morphine 4 MG/ML VIAL ONE (22:18)
[2018-04-22 22:40] LABS: ALT (SGPT) Less than 7 U/L (8-55); AST (SGOT) 8 U/L (5-34); Albumin 3.7 g/dL (3.5-5.0); Alkaline Phosphatase 93 U/L (40-150); Anion Gap 13 mmol/L (10-20); BUN (Urea Nitrogen) 11 mg/dL (7.0-18.7); Bilirubin, Total 0.3 mg/dL (0.2-1.2); Calc. Creatinine Clearance 0 mL/min (70-130); Calcium 9.1 mg/dL (7.8-10.44); Carbon Dioxide 23 mmol/L (22-29); Chloride 100 mmol/L (98-107); Estimated GFR-MDRD 73; Globulin 4.2 g/dL (2.4-3.5); Glucose 229 mg/dL (70-105); Lipase 25 U/L (8-78); Potassium 3.6 mmol/L (3.5-5.1); Protein, Total 7.9 g/dL (6.0-8.3); Sodium 132 mmol/L (136-145)
[2018-04-22 23:20] LABS: Bilirubin Small (Negative); Blood, Urine Negative (Negative); Clarity CLOUDY (Clear); Glucose, Urine (Dipstick) 250 mg/dL (Negative); Leukocyte Moderate (Negative); Nitrite Negative (Negative); Pregnancy Test - Urine (BHCG) Negative (Negative); Pregu Control Background? CLEAR/WHITE (CLR/WHITE); Pregu Control Bar Appear? YES (CONTROL BAR); Protein, Urine (Dipstick) 30 mg/dL (Neg-Trace); Specific Gravity 1.035 (1.002-1.036); Specific Gravity, Urine 1.035 (1.002-1.036); pH, Urine 6.5 (5.0-9.0)
[2018-04-22 23:21] LABS: BHCG - Serum Negative (NEGATIVE); Pregs Control Background? CLEAR/WHITE (CLR/WHITE); Pregs Control Bar Appear? YES (CONTROL BAR)
[2018-04-22 23:22] LABS: Bacteria/HPF None Seen HPF (None Seen); Pathc Cast-AUWi Flag 0.87 (0-2.49)
[2018-04-22 23:23] LABS: Yeast-AUWi Flag 27.6 (0-25.0)
[2018-04-22 23:30] LABS: Yeast-All Forms 1+ HPF (None Seen)
[2018-04-22 23:31] LABS: Hyaline Casts/LPF 0-3 HYALINE CAST LPF (0-3 Hyaline)
--- NOTE | 2018-04-22 23:51 | CT ---
CT OF THE ABDOMEN AND PELVIS WITH IV CONTRAST: 04/22/18 INDICATION: 38-year-old female with abdominal pain; history of pancreatitis. FINDINGS: The cystic abnormality involving the distal pancreatic body is slightly larger than seen on compariso n dated 01/05/18, now measuring 4.4 x 2.7 cm where it previously measured 3.1 x 1.8 cm. The cystic les ion involving the pancreatic tail is smaller measuring 1.7 cm where it previously measured 2 cm. The left renal cyst is stable. Right kidney is normal appearing. Adrenal glands are normal. Gallbladd er is surgically absent. No drainable fluid collection is grossly evident. There is a fibroid uterus which is stable. No free fluid is evident. Unopacified large and small luis alberto l appear within normal limits. There is a normal appendix in the right lower quadrant. The bladder is decompressed. No definite acute osseous abnormality is evident. IMPRESSION: 1. Slight interval enlargement of the cystic abnormality involving the distal pancreatic body lezama spicious for enlarging pseudocyst. The suspected pseudocyst in the pancreatic tail is slightly smalle r than seen on the comparison 2. Left renal cyst. 3. Fibroid uterus. POS: [facility]
== END 2018-04-23 00:31 | disposition home or self-care (01) ==
LOC: ERS 21:27
DX: K86.3 Pseudocyst of pancreas (principal); N39.0 Urinary tract infection, site not specified; E11.9 Type 2 diabetes mellitus without complications; E78.5 Hyperlipidemia, unspecified; I10 Essential (primary) hypertension; B20 Human immunodeficiency virus [HIV] disease
CPT/HCPCS: 36415; 74177; 80053; 81003; 81015; 81025; 83690; 84703; 85025; 96374; 96375; J2270; J2405

== ENCOUNTER 2018-06-10 00:06 | Emergency (ER) | payer OTHER ==
[2018-06-10 00:30] LABS: Bilirubin Negative (Negative); Blood, Urine Negative (Negative); Clarity CLOUDY (Clear); Glucose, Urine (Dipstick) 100 mg/dL (Negative); Leukocyte Moderate (Negative); Nitrite Negative (Negative); Protein, Urine (Dipstick) 30 mg/dL (Neg-Trace); Specific Gravity, Urine 1.026 (1.002-1.036); pH, Urine 6.5 (5.0-9.0)
[2018-06-10 00:32] LABS: Bacteria/HPF Rare-Few HPF (None Seen); Hyaline Casts/LPF 0-3 HYALINE CAST LPF (0-3 Hyaline); Pathc Cast-AUWi Flag 0.29 (0-2.49); WBC/HPF 21-50 HPF (0-3)
[2018-06-10] MEDS ORDERED: Ondansetron PF 4 MG/2 ML Vial ONE (00:45)
[2018-06-10 00:51] LABS: Pregnancy Test - Urine (BHCG) Negative (Negative); Pregu Control Background? CLEAR/WHITE (CLR/WHITE); Pregu Control Bar Appear? YES (CONTROL BAR); Specific Gravity 1.026 (1.002-1.036)
[2018-06-10 01:05] LABS: #Basophils 0.1 thou/uL (0.0-0.2); #Eosinphils 0.1 thou/uL (0.0-0.7); #Monocytes 0.5 thou/uL (0.11-0.59); #Neutrophils 4.3 thou/uL (1.40-6.50); %Basophils 0.7 % (0.0-1.0); %Eosinophils 1.5 % (0.0-10.0); %Lymphocytes 28.4 % (21.0-51.0); %Monocytes 7.2 % (0.0-10.0); %Neutrophils 62.2 % (42.0-75.0); Hemoglobin 9.7 g/dL (12.0-16.0); Mean Corpuscular HGB CONC 29.5 g/dL (32.0-36.0); Mean Corpuscular Hemoglobin 19.8 pg (27.0-31.0); Platelet Count 380 thou/uL (130-400); RBC Distribution Width 17.8 % (11.5-14.5); Red Blood Cell (RBC) Count 4.91 mill/uL (4.20-5.40); White Blood Cell (WBC) Count 6.9 thou/uL (4.8-10.8)
[2018-06-10 01:22] LABS: ALT (SGPT) 8 U/L (8-55); AST (SGOT) 11 U/L (5-34); Albumin 3.6 g/dL (3.5-5.0); Alkaline Phosphatase 104 U/L (40-150); Anion Gap 13 mmol/L (10-20); BUN (Urea Nitrogen) 11 mg/dL (7.0-18.7); Bilirubin, Total 0.3 mg/dL (0.2-1.2); Calc. Creatinine Clearance 0 mL/min (70-130); Calcium 9.3 mg/dL (7.8-10.44); Carbon Dioxide 23 mmol/L (22-29); Chloride 104 mmol/L (98-107); Estimated GFR-MDRD 89; Globulin 4.5 g/dL (2.4-3.5); Glucose 109 mg/dL (70-105); Lipase 33 U/L (8-78); Potassium 3.7 mmol/L (3.5-5.1); Protein, Total 8.1 g/dL (6.0-8.3); Sodium 136 mmol/L (136-145)
[2018-06-10] MEDS ORDERED: Ketorolac Tromethamine 30 MG/ML VIAL ONE (01:50)
[2018-06-10] MEDS ORDERED: Morphine 4 MG/ML VIAL ONE (01:53)
--- NOTE | 2018-06-13 15:35 | EKG ---
Test Reason : Blood Pressure : / mmHG Vent. Rate : 061 BPM Atrial Rate : 061 BPM P-R Int : 150 ms QRS Dur : 084 ms QT Int : 444 ms P-R-T Axes : 056 007 025 degrees QTc Int : 446 ms Normal sinus rhythm Nonspecific ST and T wave abnormality Abnormal ECG Confirmed by ROGER COHEN ([id number]), editor dictionary CLAIR BUCK ([id number]) on 06/13/2018 3:34:53 PM Referred By: Confirmed By:ROGER COHEN
== END 2018-06-10 02:39 | disposition home or self-care (01) ==
LOC: ERS 00:06
DX: R10.13 Epigastric pain (principal); E11.9 Type 2 diabetes mellitus without complications; E78.5 Hyperlipidemia, unspecified; I10 Essential (primary) hypertension; B20 Human immunodeficiency virus [HIV] disease
CPT/HCPCS: 80053; 81003; 81015; 81025; 83690; 85025; 93005; 94760; 96361; 96374; 96375; J1885; J2270; J2405

== ENCOUNTER 2018-07-05 00:48 | Inpatient (IN) | payer OTHER ==
[2018-07-05 02:10] LABS: Hemoglobin 10.5 g/dL (12.0-16.0); Mean Corpuscular HGB CONC 29.4 g/dL (32.0-36.0); Mean Corpuscular Hemoglobin 20.1 pg (27.0-31.0); Mean Corpuscular Volume 68.3 fL (78.0-98.0); Mean Platelet Volume 10.7 fL (7.4-10.4); Platelet Count 393 thou/uL (130-400); Red Blood Cell (RBC) Count 5.25 mill/uL (4.20-5.40); White Blood Cell (WBC) Count 11.6 thou/uL (4.8-10.8)
[2018-07-05 02:24] LABS: ALT (SGPT) 10 U/L (8-55); AST (SGOT) 10 U/L (5-34); Albumin 3.9 g/dL (3.5-5.0); Alkaline Phosphatase 125 U/L (40-150); Anion Gap 15 mmol/L (10-20); BUN (Urea Nitrogen) 13 mg/dL (7.0-18.7); Bilirubin, Total 0.4 mg/dL (0.2-1.2); Calc. Creatinine Clearance 0 mL/min (70-130); Calcium 9.6 mg/dL (7.8-10.44); Carbon Dioxide 19 mmol/L (22-29); Chloride 100 mmol/L (98-107); Estimated GFR-MDRD 66; Globulin 4.8 g/dL (2.4-3.5); Glucose 366 mg/dL (70-105); Lipase 373 U/L (8-78); Potassium 3.7 mmol/L (3.5-5.1); Protein, Total 8.7 g/dL (6.0-8.3); Sodium 130 mmol/L (136-145)
[2018-07-05] MEDS ORDERED: Ondansetron PF 4 MG/2 ML Vial ONE (02:39)
[2018-07-05] MEDS ORDERED: Morphine 4 MG/ML VIAL ONE ×3 (02:39→05:54)
[2018-07-05 02:40] LABS: #Eosinphils 0.1 thou/uL (0.0-0.7); #Lymphocytes 1.7 thou/uL (1.20-3.40); #Monocytes 0.5 thou/uL (0.11-0.59); #Neutrophils 9.3 thou/uL (1.40-6.50); %Basophils 0.2 % (0.0-1.0); %Eosinophils 0.6 % (0.0-10.0); %Lymphocytes 14.9 % (21.0-51.0); %Monocytes 4.5 % (0.0-10.0); %Neutrophils 79.8 % (42.0-75.0); Anisocytosis SLIGHT = 6-15 cells (100X) (0-5/hpf); Hypochromia SLIGHT = 6-15 cells (100X) (0-5/hpf); MDiff Complete? YES; Microcytosis SLIGHT = 6-15 cells (100X) (0-5/hpf)
[2018-07-05] MEDS ORDERED: Morphine 2 MG/ML SYRINGE ONE ×2 (03:16→06:00)
[2018-07-05] MEDS ORDERED: Ketorolac Tromethamine 30 MG/ML VIAL ONE (03:16)
--- NOTE | 2018-07-05 05:55 | PDOC.FPRHP ---
- History of Present Illness Chief Complaint: N/V, epigastric pain History of Present Illness: 38 yo F with PMH IDDM, HTN, HIV, recurrent pancreatitis presents with N/V for past 2 days along with epigastric pain and fullness. Feels similar to previous pancreatitis flares. She believes trigger is starting or finishing her menstrual period. Denies alcohol use. Says they have thought and HIV med could have caused previous episodes. Denies fever/chills. Pain has now resolved, 0/10 currently after meds from ED. ED Course: toradol, morphine 6,6,4 mg, zofran, 1L - Allergies/Adverse Reactions Allergies Allergy/AdvReac Type Severity Reaction Status Date / Time ROBERT Inhibitors Allergy Severe Swollen Verified 02/12/17 19:54 Lips acetaminophen [From Tylenol] Allergy Severe seizure Verified 02/12/17 19:54 lisinopril Allergy Severe Swollen Verified 02/12/17 19:54 Lips hydrocodone [Hydrocodone] Allergy Intermediate Rash Verified 02/12/17 19:54 tramadol Allergy Verified 02/12/17 19:54 gadobenate dimeglumine Allergy Uncoded 12/10/16 00:24 - Home Medications Medication Instructions Recorded Confirmed Type metFORMIN [Glucophage] 500 mg PO BID-AC 11/08/16 07/05/18 History Gemfibrozil [Lopid] 600 mg PO BIDAC #60 tab 11/24/16 07/05/18 Rx Pantoprazole [Protonix] 40 mg PO DAILY #30 tab 11/24/16 07/05/18 Rx NIFEdipine [Procardia XL] 30 mg PO DAILY #30 tab 12/16/16 07/05/18 Rx hydrALAZINE [Apresoline] 25 mg PO TID #90 tab 12/16/16 07/05/18 Rx Insulin Detemir 100 UNITS/ML 33 units SC HS 12/29/16 07/05/18 History [Levemir] Insulin Detemir 100 UNITS/ML 38 unit SQ DAILY 12/29/16 07/05/18 History [Levemir] Magnesium Oxide 400 mg PO TID #90 tab 02/07/17 07/05/18 Rx Darunavir/Cobicistat [Prezcobix 1 each PO DAILY #30 tablet 02/17/17 07/05/18 Rx 800 mg-150 mg Tablet] Dolutegravir Sodium [Tivicay] 50 mg PO DAILY #30 tablet 02/17/17 07/05/18 Rx Pancrelipase 21552 [Creon DR 5 cap PO TID-WM #300 cap 03/14/17 07/05/18 Rx 12,000 Units] Acyclovir 400 mg PO TID PRN 07/05/18 07/05/18 History Cephalexin [Keflex] 500 mg PO Q12H 07/05/18 07/05/18 History Ciprofloxacin HCl 500 mg PO BID 07/05/18 07/05/18 History Fluconazole 100 mg PO DAILY 07/05/18 07/05/18 History Ibuprofen 600 mg PO TID 07/05/18 07/05/18 History Ibuprofen [Motrin] 600 mg PO Q6HR PRN 07/05/18 07/05/18 History Ketorolac Tromethamine [Toradol] 10 mg PO Q6HR PRN 07/05/18 07/05/18 History Ondansetron [Zofran ODT] 4 mg PO Q6HR PRN 07/05/18 07/05/18 History - History PMHx: HTN, HLD, recurrent pancreatitis, IDDM, CKD, HIV PSHx: L oopherectomy, cholecystectomy, tubal ligation 2001, pancreatic cyst drainage FHx: non contributory Social: Previous tobacco use, quit 2017, 40 pack yr hx. Denies alcohol use. Reports marijuana use. - Review of Systems General: denies: fever/chills ENT: reports: nasal congestion Respiratory: reports: congestion. denies: cough, shortness of breath Cardiovascular: denies: chest pain, edema Gastrointestinal: reports: nausea, vomiting, abdominal pain. denies: diarrhea Skin: denies: rashes - Vital signs BP: 142/92 HR: 61 RR: 97.9 Tmax: 17 Pox: 100% on RA Wt: 72 kg - Physical Exam Constitutional: NAD, well developed HEENT: normocephalic and atraumatic, PERRLA, no scleral icterus, MMM Heart: RRR, normal S1/S2, no murmurs/rubs/gallops Lungs: CTAB, no respiratory distress Abdomen: soft, bowel sounds present, no masses/distention, other (diffusely TTP with guarding, pt reports RLQ tenderness as well) Musculoskeletal: normal structure Neurological: no focal deficit Skin: good turgor, capillary refill <2 seconds Psychiatric: normal mood and affect FMR H&P: Results - Labs Result Diagrams: 07/05/18 01:54 07/05/18 01:54 Lab results: WBC 11.6 thou/uL (4.8-10.8) H 07/05/18 01:54 Hgb 10.5 g/dL (12.0-16.0) L 07/05/18 01:54 Hct 35.8 % (36.0-47.0) L 07/05/18 01:54 MCV 68.3 fL (78.0-98.0) L 07/05/18 01:54 Plt Count 393 thou/uL (130-400) 07/05/18 01:54 Neutrophils % 79.8 % (42.0-75.0) H 07/05/18 01:54 Sodium 130 mmol/L (136-145) L 07/05/18 01:54 Potassium 3.7 mmol/L (3.5-5.1) 07/05/18 01:54 Chloride 100 mmol/L (98-107) 07/05/18 01:54 Carbon Dioxide 19 mmol/L (22-29) L 07/05/18 01:54 BUN 13 mg/dL (7.0-18.7) 07/05/18 01:54 Creatinine 1.12 mg/dL (0.6-1.1) H 07/05/18 01:54 Glucose 366 mg/dL (70-105) H 07/05/18 01:54 Calcium 9.6 mg/dL (7.8-10.44) 07/05/18 01:54 Total Bilirubin 0.4 mg/dL (0.2-1.2) 07/05/18 01:54 AST 10 U/L (5-34) 07/05/18 01:54 ALT 10 U/L (8-55) 07/05/18 01:54 Alkaline Phosphatase 125 U/L (40-150) 07/05/18 01:54 Serum Total Protein 8.7 g/dL (6.0-8.3) H 07/05/18 01:54 Albumin 3.9 g/dL (3.5-5.0) 07/05/18 01:54 Lipase 373 U/L (8-78) H 07/05/18 01:54 FMR H&P: A/P - Problem List (1) Acute on chronic pancreatitis Current Visit: No Status: Acute Code(s): K85.90 - ACUTE PANCREATITIS WITHOUT NECROSIS OR INFECTION, UNSP; K86.1 - OTHER CHRONIC PANCREATITIS (2) Anemia, normocytic normochromic Current Visit: No Status: Chronic Code(s): D64.9 - ANEMIA, UNSPECIFIED Comment: most likely HIV related. (3) Diabetes type 2, uncontrolled Current Visit: No Status: Chronic Code(s): E11.65 - TYPE 2 DIABETES MELLITUS WITH HYPERGLYCEMIA (4) Dyslipidemia Current Visit: No Status: Chronic Code(s): E78.5 - HYPERLIPIDEMIA, UNSPECIFIED (5) HIV (human immunodeficiency virus infection) Current Visit: No Status: Chronic (6) HTN (hypertension) Current Visit: No Status: Chronic Code(s): I10 - ESSENTIAL (PRIMARY) HYPERTENSION Qualifiers: Hypertension type: essential hypertension Qualified Code(s): I10 - Essential (primary) hypertension - Plan Acute Pancreatitis, recurrent - Hx of recurrent pancreatitis including pancreatic pseudocyst drainage. Last CT showed interval increase in this cyst. Consider getting CT this am to further reevaluate. - Lipase 373, >3x ULN - IVF LR @ 250, monitor urine output with strict I/Os - morphine 4mg prn with 2mg prn breakthrough, zofran - NPO, will advance diet as tolerated - hold home creon JUANI on CKD - likely 2/2 volume depletion, expect to improve with IVF - Cr 1.12 - monitor on BMP IDDM - continue home metformin - home insulin regimen is levemir 38am, 33pm - will start lantus @ 20 units daily while NPO, monitor accuchecks q2h with mildSSI. Then will decrease frequency as appropriate. Chronic microcytic anemia - Hgb 10.5, stable and slightly improved compared to previous HTN - continue home nifedipine, hydralazine HIV - continue home Tivicay and Prezcobix HLD - continue home gemfibrozil GERD - continue home protonix Marijuana abuse Diet: NPO Ppx: Lovenox Dispo: admit to medical floor for observation FMR H&P: Upper Level - Pertinent history 38 y/o F w/ PMHx of multiple episodes of pancreatitis w/ prior pseudocyst formation and subsequent drainage presents to the ED for severe abdominal pain which started a few hours prior to arrive. Reports minimal PO intake w/ associated nausea/vomitting. Pt received IV pain medication including toradol and morphine in the ER w/ improvement of her sxs. For further details byron refer to legal summer intern note. - Pertinent findings Vitals per legal summer intern note WBC - 11.6 Hgb - 10.6 MCV - 68 Lipase - 373 BUN - 13 Cr - 1.12 CXR - NAD (official radiology read pending) KUB - No evidence of free air below the diaphragm (official radiology read pending) PE: GEN: NAD, resting in bed CARD: RRR, no murmur rubs or gallops PULM: CTA-B/l, no wheezes, rales or rhonci GI: TTP diffusely worst RLQ, no rigidity, Conscious guarding noted, no rebound. Negative heel strike - Plan Date/Time: 07/05/18 [id number] I, B. Clarence Boss MD, have evaluated this patient and agree with findings/plan as outlined by legal summer intern resident. Pertinent changes/additions are listed here. 38 y/o F w/: 1) Acute Pancreatitis - Pt w/ lipase >3x ULN and characteristic pain meeting diagnostic criteria - Will place patient on agressive IVF rescucitation w/ LR @ 250 mL/Hr w/ strict I/O's and will titrate for goal UOP 0.5 - 1 mL/Kg/Hr - 4 mg IV morphine q4 hrs w/ 2 mg q 2hr PRN for breakthrough pain - Keep patient NPO for bowel rest w/ IV zofran available for nausea control - BiSap = 0 (<1% risk of mortality) - Will plan to initiate early feeding within 24 hours if patient is able to tolerate, pain is decreasing, and inflammatory markers are improving - Pt does have hx of pancreatic psuedocyst from review of prior hospitalizations and noted to have interval enlargement on last CT scan from 04/22 which was obtained after its drainage. Will consider repeating CT-AP to further evaluate for continued enlargement. - Will hold pt's creon until tolerating PO 2) JUANI on CKD - Likely pre-renal given #1 - Will repeat AM BMP's to monitor while fluid resuscitating as noted above 3) IDDM - Pt will be NPO in setting of #1 - Will decrease usual home long acting insulin while NPO in order to help prevent relative insulin deficiency and possible progression to DKA. Will plan to administer 20 U of lantus w/ SSI available as titrate as needed to help prevent any episodes of hypoglycemia. - Will monitor BG w/ q2 hr accuchecks initially then space out to q4-6 hr checks while NPO and give IV dextrose as needed to prevent hypoglycemia 4) Other chronic medical problems per legal summer intern note Assessment and Plan Discussed w/ Dr. Subramanian who is in agreement Addendum - Attending - Attending Attestation Date/Time: 07/05/18 1990 I personally evaluated the patient and discussed the management with Dr. Burrell I agree with the History, Examination, Assessment and Plan documented above with any addition or exceptions noted below.38 yo HIV patient with History of recurrent pancreatitis s/p Cholecystectomy and taking gemfibrozil. Patient with pseudocyst s/p drainage. Patient admitted for bowel rest and IV re- hydration and pain management
[2018-07-05] MEDS ORDERED: Morphine 2 MG/ML SYRINGE SLOW IVP PRN (07:14)
[2018-07-05] MEDS ORDERED: Ondansetron PF 4 MG/2 ML Vial IVP PRN (07:21)
[2018-07-05] MEDS ORDERED: Dextrose 5% in Water 1,000 ML IV PRN (07:21)
[2018-07-05] MEDS ORDERED: Ondansetron ODT 4 MG TAB PO PRN (07:21)
[2018-07-05] MEDS ORDERED: Dextrose 50% Abboject 50 ML SYRINGE SLOW IVP PRN (07:21)
[2018-07-05] MEDS ORDERED: Promethazine HCl 25 MG/ML VIAL IM PRN (07:21)
[2018-07-05 07:49] VITALS: BMI 27.3
--- NOTE | 2018-07-05 08:19 | RAD ---
2 VIEWS OF ABDOMEN: Date: 07/05/18 PROVIDED CLINICAL HISTORY: Abdominal pain. FINDINGS: The abdominal bowel gas pattern is nonspecific. Cholecystectomy clips are seen in the right upper caleb drant. Rim calcification involving the right hemipelvis is previously shown to represent fibroid. No radiographically apparent urinary tract calculi. No evidence for pneumoperitoneum. IMPRESSION: Nonspecific bowel gas pattern. POS: [facility]
[2018-07-05] MEDS: Lactated Ringer's 1,000 ML IV SCH ×5 (08:21→20:13)
[2018-07-05] MEDS: NIFEdipine XL 30 MG TAB PO SCH (08:22)
[2018-07-05] MEDS: Gemfibrozil 600 MG TAB PO SCH ×2 (08:22→16:39)
[2018-07-05] MEDS: hydrALAZINE 25 MG TAB PO SCH ×3 (08:23→20:12)
[2018-07-05] MEDS: Enoxaparin Sodium 40 MG/0.4 ML SYRINGE SC SCH ×2 (08:23→09:43)
[2018-07-05] MEDS: metFORMIN 500 MG TAB PO SCH ×2 (08:23→16:30)
[2018-07-05] MEDS: Morphine 4 MG/ML VIAL SLOW IVP PRN ×4 (08:32→21:06)
--- NOTE | 2018-07-05 08:41 | RAD ---
PORTABLE CHEST: Date: 07/05/18 PROVIDED CLINICAL HISTORY: Chest pain. FINDINGS: Comparison with 01/07/17. Cardiac and mediastinal silhouette is within normal limits. Lungs appear clear. No pleural fluid or p neumothorax apparent. IMPRESSION: No evidence for an acute cardiopulmonary process. POS: [facility]
[2018-07-05] MEDS ORDERED: Insulin Glargine 20 UNITS in Pre-Filled Syringe 1 EACH SC SCH (09:00)
[2018-07-05] MEDS ORDERED: DARUNAVIR PO SCH (09:00)
[2018-07-05] MEDS ORDERED: [UNRECOGNIZED DRUG - OTHER] PO SCH (09:00)
[2018-07-05] MEDS ORDERED: COBICISTAT PO SCH (09:00)
[2018-07-05] MEDS ORDERED: Non-Formulary Item 1 EACH (Dolutegravir Sodium [Tivicay] 50 MG) PO SCH (09:00)
[2018-07-05] MEDS ORDERED: ISOVUE-370 76%-LOCM 1 ML ONE (10:13)
--- NOTE | 2018-07-05 11:06 | CT ---
CT ABDOMEN AND PELVIS PERFORMED WITH IV CONTRAST ENHANCEMENT: Date: 07/05/18 HISTORY: Patient has a history of pancreatitis and HIV. Complains of epigastric pain. COMPARISON: 04/22/18. FINDINGS: The lung bases are clear. The liver and spleen show no focal abnormalities. Spleen measures 13.8 cm in length. The liver has a somewhat elongated right lobe. Postop cholecystectomy changes are seen. There is some intrahepatic du ctal prominence, which is slightly more prominent than it was on the prior 04/22/18 study. This is pr obably at least partially on the basis of cholecystectomy but also is probably related to the new per ipancreatic inflammatory changes involving the peripancreatic head. The pseudocyst formation along th e pancreatic body and tail region are stable, with the larger collection near the junction of the hea d and body region measuring 4.2 cm in length. Right and left adrenal glands are normal. Hypodensity involving the upper pole of the left kidney is most compatible with a cyst. Kidneys are nonobstructed. Small periaortic lymph nodes are again noted. These nodes are most prominent adjacent to the left renal hilus and are stable. Fat-containing anter ior abdominal wall hernia is seen. Postoperative changes of stomach region are seen. CT of pelvis was performed with contrast enhancement. A large fibromatous uterus is again identified. No signs of adenopathy or free fluid. Appendix region is unremarkable. IMPRESSION: 1. Stable appearance to pancreatic pseudocyst. 2. New inflammatory changes around the pancreas, mainly around pancreatic head, suggesting more acut e element of pancreatitis. 3. Enlarged fibromatous uterus. 4. Postop cholecystectomy change. POS: [facility]
[2018-07-05] MEDS: HumaLOG 300 UNITS/3 ML VIAL SC PRN ×4 (12:49→18:28)
[2018-07-05 13:58] LABS: Lactic Acid 0.9 mmol/L (0.5-2.2)
[2018-07-05] MEDS ORDERED: Prevnar 13-Val Conj/PF 0.5 ML SYRINGE IM ONE (15:00)
[2018-07-05] MEDS: Morphine 2 MG/ML SYRINGE SLOW IVP PRN ×2 (15:11→18:24)
[2018-07-05 18:13] LABS: Bilirubin Negative (Negative); Blood, Urine Small (Negative); Clarity CLOUDY (Clear); Glucose, Urine (Dipstick) >=1000 mg/dL (Negative); Leukocyte Negative (Negative); Nitrite Positive (Negative); Protein, Urine (Dipstick) Trace mg/dL (Neg-Trace); Specific Gravity, Urine 1.044 (1.002-1.036); Urobilinogen 0.2 mg/dL (0.2-1.0)
[2018-07-05 18:14] LABS: Bacteria/HPF 1+ HPF (None Seen); Hyaline Casts/LPF 0-3 HYALINE CAST LPF (0-3 Hyaline); Pathc Cast-AUWi Flag 0.72 (0-2.49); WBC/HPF 21-50 HPF (0-3)
[2018-07-05 18:15] LABS: Yeast-AUWi Flag 1613.7 (0-25.0)
[2018-07-05 18:22] LABS: RBC/HPF 0-3 HPF (0-3); Yeast-All Forms 2+ HPF (None Seen)
[2018-07-05] MEDS ORDERED: Morphine 2 MG/ML SYRINGE SLOW IVP SCH (20:00)
[2018-07-06] MEDS: HumaLOG 300 UNITS/3 ML VIAL SC PRN ×2 (01:26→11:51)
[2018-07-06] MEDS: Morphine 4 MG/ML VIAL SLOW IVP PRN ×5 (01:27→20:09)
[2018-07-06] MEDS: Lactated Ringer's 1,000 ML IV SCH ×6 (01:33→20:53)
[2018-07-06] MEDS: Morphine 2 MG/ML SYRINGE SLOW IVP PRN ×4 (04:29→23:50)
[2018-07-06] MEDS: Gemfibrozil 600 MG TAB PO SCH ×2 (06:17→08:03)
--- NOTE | 2018-07-06 06:25 | PDOC.FM ---
Addendum entered and electronically signed by Bertha Luo MD 07/06/18 10:09 : -accuchecks 6hr -constipation: glycerin suppository x1 Original Note: - Subjective Subjective: Pain still present, better with morphine. No desire to eat at this time. - Objective MAR Reviewed: Yes Vital Signs & Weight: Vital Signs (12 hours) Temp Pulse Resp BP BP Pulse Ox 07/06/18 04:38 98.6 F 84 18 121/76 100 07/06/18 00:00 98.5 F 88 18 154/88 H 97 07/05/18 20:16 97.7 F 73 20 142/90 H 100 07/05/18 20:12 74 143/90 H Weight Weight 88.6 kg I&O: 07/04/18 07/05/18 07/06/18 06:59 06:59 06:59 Intake Total 5236 Output Total 2800 Balance 2436 Result Diagrams: 07/06/18 05:47 07/06/18 05:47 Phys Exam - Physical Examination sleeping comfortably HEENT: PERRLA, moist MMs Neck: full ROM Gastrointestinal: soft hypoactive BS, epigastric tenderness to palpation, no peritoneal signs Musculoskeletal: no edema Neurological: non-focal, moves all 4 limbs Dx/Plan (1) Acute on chronic pancreatitis Code(s): K85.90 - ACUTE PANCREATITIS WITHOUT NECROSIS OR INFECTION, UNSP; K86.1 - OTHER CHRONIC PANCREATITIS Status: Acute (2) Pancreatitis, chronic Code(s): K86.1 - OTHER CHRONIC PANCREATITIS Status: Acute (3) Diabetes type 2, uncontrolled Code(s): E11.65 - TYPE 2 DIABETES MELLITUS WITH HYPERGLYCEMIA Status: Chronic (4) Dyslipidemia Code(s): E78.5 - HYPERLIPIDEMIA, UNSPECIFIED Status: Chronic (5) Fatty liver Code(s): K76.0 - FATTY (CHANGE OF) LIVER, NOT ELSEWHERE CLASSIFIED Status: Chronic (6) HIV (human immunodeficiency virus infection) Status: Chronic (7) HTN (hypertension) Code(s): I10 - ESSENTIAL (PRIMARY) HYPERTENSION Status: Chronic Qualifiers: Hypertension type: essential hypertension Qualified Code(s): I10 - Essential (primary) hypertension (8) Obesity (BMI 30-39.9) Code(s): E66.9 - OBESITY, UNSPECIFIED Status: Chronic (9) Uterine fibroid Code(s): D25.9 - LEIOMYOMA OF UTERUS, UNSPECIFIED Status: Chronic - Plan Plan: 38 yo F with PMH of chronic pancreatitis here with acute pancreatitis Acute Pancreatitis, recurrent - Hx of chronic pancreatitis -CT Abd 07/05 showed no interval changes, confirmed acute pancreatitis - IVF LR @ 250, monitor urine output with strict I/Os - morphine 4mg prn with 2mg prn breakthrough, zofran - NPO, will advance diet as tolerated - hold home creon JUANI on CKD IDDM2 - continue home metformin - home insulin regimen is levemir 38am, 33pm - POC 170-low 200s yesterday, required 10 sliding scale units - Inc Lantus qAM from 20 to 24 units, continue with accuchecks, adjust as needed Chronic microcytic anemia - Hgb 10.5, stable and slightly improved compared to previous HTN - continue home nifedipine, hydralazine HIV - continue home Tivicay and Prezcobix HLD - continue home gemfibrozil GERD - continue home protonix Marijuana abuse Diet: NPO Ppx: Lovenox Dispo: continue with pain control with morphine. adv diet as tolerated. adjust insulin for appropriate coverage while NPO Addendum - Attending - Attending Attestation Date/Time: 07/06/18 5845 I personally evaluated the patient and discussed the management with Dr. Luo I agree with the History, Examination, Assessment and Plan documented above with any addition or exceptions noted below.Continued bowel rest and pain management consider NGT if worsened condition continue IV Rehydration. Note CRP elevated but improved. Pseudocyst stable no evidence change or evidence necrosing at this time. History Exocrine pancreatic insufficiency secondary chronic pancreatitis creon on hold pending diet trial with clinical improvement.
[2018-07-06 06:51] LABS: Anion Gap 15 mmol/L (10-20); BUN (Urea Nitrogen) Less than 4 mg/dL (7.0-18.7); Calc. Creatinine Clearance 144 mL/min (70-130); Calcium 9.4 mg/dL (7.8-10.44); Carbon Dioxide 21 mmol/L (22-29); Chloride 98 mmol/L (98-107); Estimated GFR-MDRD Greater than 90; Glucose 166 mg/dL (70-105); Sodium 130 mmol/L (136-145)
[2018-07-06 07:37] LABS: #Eosinphils 0.1 thou/uL (0.0-0.7); #Lymphocytes 1.5 thou/uL (1.20-3.40); #Monocytes 0.6 thou/uL (0.11-0.59); #Neutrophils 8.1 thou/uL (1.40-6.50); %Basophils 0.1 % (0.0-1.0); %Eosinophils 0.7 % (0.0-10.0); %Lymphocytes 14.4 % (21.0-51.0); %Monocytes 5.7 % (0.0-10.0); %Neutrophils 79.1 % (42.0-75.0); Hemoglobin 9.8 g/dL (12.0-16.0); Mean Corpuscular HGB CONC 29.2 g/dL (32.0-36.0); Mean Corpuscular Hemoglobin 20.3 pg (27.0-31.0); Mean Corpuscular Volume 69.5 fL (78.0-98.0); Mean Platelet Volume 11.1 fL (7.4-10.4); Platelet Count 299 thou/uL (130-400); RBC Distribution Width 17.6 % (11.5-14.5); Red Blood Cell (RBC) Count 4.81 mill/uL (4.20-5.40); White Blood Cell (WBC) Count 10.2 thou/uL (4.8-10.8)
[2018-07-06] MEDS: Enoxaparin Sodium 40 MG/0.4 ML SYRINGE SC SCH (07:59)
[2018-07-06] MEDS: metFORMIN 500 MG TAB PO SCH ×2 (07:59→15:47)
[2018-07-06] MEDS: Insulin Glargine 24 UNITS in Pre-Filled Syringe 1 EACH SC SCH (08:02)
[2018-07-06] MEDS: NIFEdipine XL 30 MG TAB PO SCH (08:03)
[2018-07-06] MEDS: hydrALAZINE 25 MG TAB PO SCH ×3 (08:03→20:10)
[2018-07-06] MEDS ORDERED: Glycerin Adult Supp. (12 ct jar) PR ONE (10:08)
[2018-07-07] MEDS: Morphine 4 MG/ML VIAL SLOW IVP PRN (01:40)
[2018-07-07] MEDS: Morphine 2 MG/ML SYRINGE SLOW IVP PRN ×5 (04:40→20:52)
[2018-07-07] MEDS: Lactated Ringer's 1,000 ML IV SCH ×6 (04:41→18:03)
--- NOTE | 2018-07-07 06:06 | PDOC.FM ---
- Subjective Subjective: Pt reports improvement of pain. Feels ready to eat. - Objective MAR Reviewed: Yes Vital Signs & Weight: Vital Signs (12 hours) Temp Pulse Resp BP BP Pulse Ox 07/07/18 04:00 98.3 F 83 16 127/84 98 07/06/18 20:10 91 134/84 Weight Weight 88.6 kg I&O: 07/05/18 07/06/18 07/07/18 06:59 06:59 06:59 Intake Total 5236 935 Output Total 3700 1000 Balance 1536 -65 Result Diagrams: 07/07/18 07:06 07/07/18 07:06 Phys Exam - Physical Examination Constitutional: NAD HEENT: PERRLA, moist MMs Neck: full ROM Cardiovascular: RRR, no significant murmur Gastrointestinal: soft, non-tender, no distention hypoactive BS Psychiatric: normal affect, A&O x 3 Dx/Plan (1) Acute on chronic pancreatitis Code(s): K85.90 - ACUTE PANCREATITIS WITHOUT NECROSIS OR INFECTION, UNSP; K86.1 - OTHER CHRONIC PANCREATITIS Status: Acute (2) Pancreatitis, chronic Code(s): K86.1 - OTHER CHRONIC PANCREATITIS Status: Acute (3) Diabetes type 2, uncontrolled Code(s): E11.65 - TYPE 2 DIABETES MELLITUS WITH HYPERGLYCEMIA Status: Chronic (4) Dyslipidemia Code(s): E78.5 - HYPERLIPIDEMIA, UNSPECIFIED Status: Chronic (5) Fatty liver Code(s): K76.0 - FATTY (CHANGE OF) LIVER, NOT ELSEWHERE CLASSIFIED Status: Chronic (6) HIV (human immunodeficiency virus infection) Status: Chronic (7) HTN (hypertension) Code(s): I10 - ESSENTIAL (PRIMARY) HYPERTENSION Status: Chronic Qualifiers: Hypertension type: essential hypertension Qualified Code(s): I10 - Essential (primary) hypertension (8) Obesity (BMI 30-39.9) Code(s): E66.9 - OBESITY, UNSPECIFIED Status: Chronic (9) Uterine fibroid Code(s): D25.9 - LEIOMYOMA OF UTERUS, UNSPECIFIED Status: Chronic - Plan Plan: 38 yo F with PMH of chronic pancreatitis here with acute pancreatitis Acute Pancreatitis, recurrent - Hx of chronic pancreatitis s/p cholecystectomy - CT Abd 07/05 showed no interval changes of pseudocyst, confirmed acute pancreatitis - IVF LR @ 150, monitor urine output with strict I/Os - morphine 4mg prn with 2mg prn breakthrough, zofran - Start on CLD, adv as tolerated - Restart creon - Consider ID consult for possibility of HIV meds causing pancreatitis Hypomagnesemia -1.1 -replace with 3g IV mag HypoK -replace with IV K K K IDDM2 - metformin when can tolerate NPO - home insulin regimen is levemir 38am, 33pm - POC glucose low 100s yesterday with SS - Continue Lantus qAM 24 units, continue with accuchecks q6hr, cover with mild SS CKD -Stable,daily BMPs Chronic microcytic anemia - Hgb 10.5, stable and slightly improved compared to previous HTN - continue home nifedipine, hydralazine HIV - continue home Tivicay and Prezcobix HLD - continue home gemfibrozil GERD - continue home protonix Marijuana abuse Diet: NPO Ppx: Lovenox Dispo: continue with pain control with morphine. adv to CLD. adjust insulin for appropriate coverage. Consider ID consult for HIV meds as cause of pancreatitis. Addendum - Attending - Attending Attestation Date/Time: 07/07/18 4250 I personally evaluated the patient and discussed the management with Dr. Luo I agree with the History, Examination, Assessment and Plan documented above with any addition or exceptions noted below. Acute on chronic pancreatitis-pain improved and patient feels ready to eat. Tolerated clears this morning with minimal pain and no n/v. Continue clear liquids and transition IV pain meds to po. DM- restart insulin at lower dose as diet increases.
[2018-07-07 07:47] LABS: #Eosinphils 0.1 thou/uL (0.0-0.7); #Lymphocytes 1.5 thou/uL (1.20-3.40); #Monocytes 0.6 thou/uL (0.11-0.59); %Basophils 0.5 % (0.0-1.0); %Lymphocytes 21.3 % (21.0-51.0); %Neutrophils 69.3 % (42.0-75.0); Hemoglobin 8.8 g/dL (12.0-16.0); Mean Corpuscular HGB CONC 29.1 g/dL (32.0-36.0); Mean Corpuscular Hemoglobin 20.1 pg (27.0-31.0); Mean Corpuscular Volume 69.1 fL (78.0-98.0); Mean Platelet Volume 10.9 fL (7.4-10.4); Platelet Count 278 thou/uL (130-400); RBC Distribution Width 17.3 % (11.5-14.5); Red Blood Cell (RBC) Count 4.38 mill/uL (4.20-5.40); White Blood Cell (WBC) Count 7.2 thou/uL (4.8-10.8)
[2018-07-07] MEDS ORDERED: Calcium Carbonate + Vit D 1 TAB PO SCH (08:00)
[2018-07-07 08:01] LABS: Anion Gap 15 mmol/L (10-20); BUN (Urea Nitrogen) Less than 4 mg/dL (7.0-18.7); Calc. Creatinine Clearance 164 mL/min (70-130); Carbon Dioxide 20 mmol/L (22-29); Chloride 101 mmol/L (98-107); Estimated GFR-MDRD Greater than 90; Glucose 110 mg/dL (70-105); Potassium 3.1 mmol/L (3.5-5.1); Sodium 133 mmol/L (136-145)
[2018-07-07] MEDS ORDERED: Lactated Ringer's 1,000 ML IV SCH (08:05)
[2018-07-07] MEDS: NIFEdipine XL 30 MG TAB PO SCH (08:32)
[2018-07-07] MEDS: Gemfibrozil 600 MG TAB PO SCH ×2 (08:32→16:25)
[2018-07-07 08:33] LABS: Folate (Folic Acid) 14.3 ng/mL (7.0-31.4)
[2018-07-07] MEDS: metFORMIN 500 MG TAB PO SCH ×2 (08:33→16:25)
[2018-07-07] MEDS: Enoxaparin Sodium 40 MG/0.4 ML SYRINGE SC SCH (08:33)
[2018-07-07] MEDS: hydrALAZINE 25 MG TAB PO SCH ×3 (08:33→20:52)
[2018-07-07] MEDS ORDERED: Pancrelipase DR 12000 1 CAP PO SCH (09:00)
[2018-07-07] MEDS: Insulin Glargine 24 UNITS in Pre-Filled Syringe 1 EACH SC SCH ×2 (09:22→12:16)
[2018-07-07] MEDS ORDERED: Magnesium Sulfate 3 GM in Sodium Chloride 0.9% 100 ML IVPB SCH (11:45)
[2018-07-07] MEDS: Potassium Chloride 20 MEQ in Premix Bag 1 BAG IVPB SCH ×2 (12:17→14:29)
[2018-07-07] MEDS: Pancrelipase DR 12000 1 CAP PO SCH ×3 (12:50→16:25)
[2018-07-07] MEDS ORDERED: Ibuprofen 600 MG TAB PO PRN (14:18)
[2018-07-07] MEDS ORDERED: Morphine 4 MG/ML VIAL SLOW IVP PRN (14:19)
[2018-07-07] MEDS: HumaLOG 300 UNITS/3 ML VIAL SC PRN ×2 (15:14→21:46)
[2018-07-07] MEDS ORDERED: Senokot 8.6 MG TAB PO PRN (16:07)
[2018-07-07] MEDS ORDERED: Zolpidem Tartrate 5 MG TAB PO SCH (22:15)
--- NOTE | 2018-07-08 00:28 | CON ---
DATE OF CONSULTATION: HISTORY OF PRESENT ILLNESS: Ms. Mendoza has been admitted with a recurrence of pancreatitis, has had previous flares of her pancreatitis in the past. No headaches. No fever, chills. No cough. No genitourinary symptoms. No diarrhea. No bleeding. The medical history of recurrent pancreatitis with previous cholecystectomy and biliary duct stone removed. She has been on the pancreatic enzyme replacement for the past 2 years. She had abdominal MRI done in January 2017, which demonstrated resolution of pseudocyst, beading of pancreatic duct with focal distal tail dilatation, probably sequela from chronic pancreatitis. This time her vital signs showed normal temperature and blood pressure. LUNGS: Clear. HEART: S1 and S2. Regular rate. ABDOMEN: Soft, nondistended, mild tenderness in epigastric area. No joint inflammatory activity. Cognitive function is normal. LABORATORY DATA: Sodium was 133, creatinine 0.65, white cell count 11.6 and now 7.2, hemoglobin 8.8, platelets 278. Urinalysis with 21 to 50 wbc's. Her last CD4 cell count was 222 in November last year and viral load was 51. A repeat abdomen, pelvis CT demonstrated stable appearance of pancreatic pseudocyst and inflammatory changes around the pancreas and enlarged fibromatous uterus. Pancreatitis is a well known complication of HIV infection and predominantly associated with usage of old nucleoside reverse transcriptase inhibitors such as didanosine and stavudine. Only rarely associated with the utilization of protease inhibitors via the induction of hypertriglyceridemia. In her case the biliary tract disease certainly played a role in the initial presentations and now she may have more of a chronic pancreatitis picture as demonstrated by the MRI done in 2016. I do not see any other medications that might be contributing to her problem at this point in time. Again, protease inhibitor based ART regimens are not associated with an increased risk of pancreatitis, although sometimes patients may develop hypertriglyceridemia. She does have elevated triglycerides , but not to the extent that one would expect to be associated with pancreatitis. I have considered switching her to a new anti-retroviral Biktarvy but after discussing with patient, she opted to continue the current regimen since it is not likely to be causing her recurrent episodes, but more a stage of chronic pancreatitis which has to be managed with pain control and enzyme replacement. Job ID: [id number] [facility] CENTERKody
[2018-07-08] MEDS: Morphine 2 MG/ML SYRINGE SLOW IVP PRN (00:30)
[2018-07-08] MEDS: Lactated Ringer's 1,000 ML IV SCH ×3 (00:33→10:19)
[2018-07-08] MEDS: HumaLOG 300 UNITS/3 ML VIAL SC PRN ×2 (06:11→12:32)
[2018-07-08 07:35] LABS: #Eosinphils 0.1 thou/uL (0.0-0.7); #Lymphocytes 1.2 thou/uL (1.20-3.40); #Monocytes 0.5 thou/uL (0.11-0.59); #Neutrophils 4.2 thou/uL (1.40-6.50); %Basophils 0.1 % (0.0-1.0); %Eosinophils 1.3 % (0.0-10.0); %Lymphocytes 19.9 % (21.0-51.0); %Neutrophils 69.6 % (42.0-75.0); Hemoglobin 8.8 g/dL (12.0-16.0); Mean Corpuscular HGB CONC 29.4 g/dL (32.0-36.0); Mean Corpuscular Hemoglobin 20.4 pg (27.0-31.0); Mean Corpuscular Volume 69.3 fL (78.0-98.0); Mean Platelet Volume 10.6 fL (7.4-10.4); Platelet Count 287 thou/uL (130-400); RBC Distribution Width 17.2 % (11.5-14.5); Red Blood Cell (RBC) Count 4.32 mill/uL (4.20-5.40); White Blood Cell (WBC) Count 6.1 thou/uL (4.8-10.8)
[2018-07-08 07:40] LABS: Anion Gap 15 mmol/L (10-20); BUN (Urea Nitrogen) Less than 4 mg/dL (7.0-18.7); Calc. Creatinine Clearance 155 mL/min (70-130); Calcium 9.1 mg/dL (7.8-10.44); Carbon Dioxide 19 mmol/L (22-29); Chloride 102 mmol/L (98-107); Estimated GFR-MDRD Greater than 90; Glucose 182 mg/dL (70-105); Potassium 3.7 mmol/L (3.5-5.1); Sodium 132 mmol/L (136-145)
[2018-07-08] MEDS ORDERED: Insulin Glargine 26 UNITS in Pre-Filled Syringe 1 EACH SC SCH ×2 (08:42→10:15)
[2018-07-08] MEDS ORDERED: Magnesium Citrate 300 ML BOT PO SCH (08:45)
--- NOTE | 2018-07-08 08:52 | PDOC.FM ---
- Subjective Subjective: NAEO. Tolerated FLD well. Minimal abd pain. Ready to advance diet. - Objective MAR Reviewed: Yes Vital Signs & Weight: Vital Signs (12 hours) Temp Pulse Resp BP BP BP Pulse Ox 07/08/18 07:31 98 F 83 18 121/87 100 07/08/18 04:00 98.1 F 82 16 133/87 100 07/07/18 23:49 98.1 F 88 12 127/83 100 07/07/18 20:52 77 127/86 Weight Weight 88.6 kg I&O: 07/07/18 07/08/18 07/09/18 06:59 06:59 06:59 Intake Total 935 2660 Output Total 1000 3200 Balance -65 -540 Result Diagrams: 07/08/18 06:46 07/08/18 06:46 Phys Exam - Physical Examination Constitutional: NAD HEENT: PERRLA, moist MMs Neck: supple, full ROM Gastrointestinal: soft, non-tender, no distention, positive bowel sounds Neurological: non-focal, moves all 4 limbs Psychiatric: normal affect, A&O x 3 Skin: cap refill <2 seconds Dx/Plan (1) Acute on chronic pancreatitis Code(s): K85.90 - ACUTE PANCREATITIS WITHOUT NECROSIS OR INFECTION, UNSP; K86.1 - OTHER CHRONIC PANCREATITIS Status: Acute (2) Pancreatitis, chronic Code(s): K86.1 - OTHER CHRONIC PANCREATITIS Status: Acute (3) Diabetes type 2, uncontrolled Code(s): E11.65 - TYPE 2 DIABETES MELLITUS WITH HYPERGLYCEMIA Status: Chronic (4) Dyslipidemia Code(s): E78.5 - HYPERLIPIDEMIA, UNSPECIFIED Status: Chronic (5) Fatty liver Code(s): K76.0 - FATTY (CHANGE OF) LIVER, NOT ELSEWHERE CLASSIFIED Status: Chronic (6) HIV (human immunodeficiency virus infection) Status: Chronic (7) HTN (hypertension) Code(s): I10 - ESSENTIAL (PRIMARY) HYPERTENSION Status: Chronic Qualifiers: Hypertension type: essential hypertension Qualified Code(s): I10 - Essential (primary) hypertension (8) Obesity (BMI 30-39.9) Code(s): E66.9 - OBESITY, UNSPECIFIED Status: Chronic (9) Uterine fibroid Code(s): D25.9 - LEIOMYOMA OF UTERUS, UNSPECIFIED Status: Chronic - Plan Plan: 38 yo F with PMH of chronic pancreatitis here with acute pancreatitis Acute Pancreatitis, recurrent - Hx of chronic pancreatitis s/p cholecystectomy - CT Abd 07/05 showed no interval changes of pseudocyst, confirmed acute pancreatitis - IVF LR @ 150, monitor urine output with strict I/Os - morphine 4mg prn with 2mg prn breakthrough, zofran - Tolerated FLD well, will advance diet - Restart creon - Per Dr. Quinn HAARt therapy not source, likely HIV related in her case Hypomagnesemia, resolved -1.1 -> 1.5 -restarted home mag HypoK, resolved K K IDDM2 - metformin when can tolerate NPO - home insulin regimen is levemir 38am, 33pm - POC glucose low 100s yesterday with SS - Continue Lantus qAM 24 units, continue with accuchecks q6hr, cover with mild SS CKD -Stable,daily BMPs Chronic microcytic anemia - Hgb 10.5, stable and slightly improved compared to previous HTN - continue home nifedipine, hydralazine HIV - continue home Tivicay and Prezcobix HLD - continue home gemfibrozil GERD - continue home protonix Marijuana abuse Diet: NPO Ppx: Lovenox Dispo: try regular diet today, will inc basal insulin 2 U to cover starting diet. continue HIV meds per ID. d/c morhpine, pain control with ibuprofen Addendum - Attending - Attending Attestation Date/Time: 07/08/18 1630 I personally evaluated the patient and discussed the management with Dr. Luo I agree with the History, Examination, Assessment and Plan documented above with any addition or exceptions noted below. Acute on chronic pancreatitis- pain controlled and tolerating full liquid diet. She is ready for discharge. Discussed slowly introducing regular foods and avoid spicy or fried/greasy foods. D/C home
[2018-07-08] MEDS ORDERED: Magnesium Oxide 400 MG TAB PO SCH (09:00)
[2018-07-08] MEDS: metFORMIN 500 MG TAB PO SCH (09:03)
[2018-07-08] MEDS: NIFEdipine XL 30 MG TAB PO SCH (09:03)
[2018-07-08] MEDS: Gemfibrozil 600 MG TAB PO SCH (09:03)
[2018-07-08] MEDS: hydrALAZINE 25 MG TAB PO SCH (09:03)
[2018-07-08] MEDS: Enoxaparin Sodium 40 MG/0.4 ML SYRINGE SC SCH (09:03)
[2018-07-08] MEDS: Pancrelipase DR 12000 1 CAP PO SCH (10:20)
[2018-07-08 11:08] VITALS: BP 133/86; TEMP 97.9
[2018-07-09] MEDS ORDERED: Insulin Glargine 26 UNITS in Pre-Filled Syringe 1 EACH SC SCH (09:00)
--- NOTE | 2018-07-09 09:20 | DIS ---
DATE OF ADMISSION: 07/05/2018 DATE OF DISCHARGE: 07/08/2018 ADMITTING ATTENDING: John Subramanian MD DISCHARGE ATTENDING: Dr. Key. RESIDENT: Bertha Luo MD, PGY-1. CONSULTS: Dr. Quinn, Infectious Disease. PROCEDURES: None. PRIMARY DIAGNOSES: 1. Hypomagnesemia. 2. Low vitamin D. 3. Acute on chronic pancreatitis. 4. Resolved acute kidney injury and chronic kidney disease. SECONDARY DIAGNOSES: 1. Chronic kidney disease. 2. Hypertension. 3. Hyperlipidemia. 4. Human immunodeficiency virus, compliant with medications. 5. History of marijuana abuse. 6. Chronic microcytic anemia. 7. Insulin-dependent diabetes, type 2. DISCHARGE MEDICATIONS: 1. Metformin 500 mg p.o. b.i.d. before meals. 2. Lopid 600 mg p.o. b.i.d. before meals. 3. Protonix 20 mg daily. 4. Procardia XL 30 mg p.o. daily. 5. Hydralazine 25 mg p.o. t.i.d. 6. Levemir 38 units subcu daily. 7. Levemir 33 units subcu nightly. 8. Magnesium oxide 400 mg p.o. t.i.d. 9. Prezcobix 800 mg-150 mg one tab p.o. daily. 10. Tivicay 50 mg p.o. daily. 11. Creon five capsules p.o. t.i.d. with meals. 12. Acyclovir 400 mg p.o. t.i.d. p.r.n. 13. Keflex 500 mg p.o. q.12 hours p.r.n. 14. Toradol 10 mg p.o. q.6 hours p.r.n. 15. Zofran 4 mg p.o. q.6 hours p.r.n. 16. Ibuprofen 600 mg p.o. q.6 hours p.r.n. for pain. 17. Ciprofloxacin 500 mg p.o. b.i.d. 18. Fluconazole 100 mg p.o. daily p.r.n. 19. Calcium carbonate plus vitamin D 1 tab p.o. q.a.m. with meals. 20. Senokot one tab p.o. b.i.d. p.r.n. for constipation. DISCONTINUED MEDICATIONS: None. HISTORY OF PRESENT ILLNESS/HOSPITAL COURSE: A 38-year-old female with HIV and recurrent pancreatitis, presents to the ED for abdominal pain. The pain feels exactly like her prior acute pancreatitis episodes. The patient has had pancreatitis for over several years after developing HIV. She is status post cholecystectomy. She has a history pertinent for pancreatic pseudocyst which was drained a couple of months ago. CT abdomen showed stable pseudocysts with signs of acute pancreatitis. The patient also had elevated lipase and clinical signs of pancreatitis. The patient was admitted for pain control management. She was able to tolerate a full liquid diet and ready to go home after a few days of bowel rest. In addition, the patient's pain was adequately controlled with p.o. ibuprofen on the last day. In addition, there were thoughts that her HIV medications could be causing the pancreatitis since other causes have been ruled out and so ID was consulted. Dr. Quinn did not believe that her current regimen caused it, and she was kept on the same regimen. The patient was advised to keep a fat restricted diet in order to prevent recurrent flares. Likely source of her pancreatitis is etiology at that point unless further workup otherwise indicates. The patient was also found to have hypomagnesemia, likely due to malabsorption from pancreatitis and was adequately placed and resumed on home Mag replacement. In addition, her vitamin D level was low and so she was sent home with vitamin D to take as needed. DISPOSITION: Stable. DISCHARGE INSTRUCTIONS: 1. Location, home. 2. Diet, heart healthy, low-sodium, low-fat. 3. Activity, as tolerated. FOLLOWUP: 1. Please follow up with PCP, Dr. Key at [facility]. 2. Please follow up with Dr. Quinn for continued medication management of HIV. Job ID: [id number]
== END 2018-07-08 12:49 | disposition home or self-care (01) | DRG 439 ==
LOC: ERS 00:48 → OBSVTOIN 07:06 → T4-A 07:06
PROVIDERS: ADMIT Family Medicine; ATTEND Family Medicine
DX: K85.90 Acute pancreatitis without necrosis or infection, unspecified (principal); N17.9 Acute kidney failure, unspecified; B20 Human immunodeficiency virus [HIV] disease; E83.42 Hypomagnesemia; K86.1 Other chronic pancreatitis; I12.9 Hypertensive chronic kidney disease with stage 1 through stage 4 chronic kidney disease, or unspecified chronic kidney disease; E11.22 Type 2 diabetes mellitus with diabetic chronic kidney disease; N18.9 Chronic kidney disease, unspecified; Z79.4 Long term (current) use of insulin; E78.5 Hyperlipidemia, unspecified; F12.10 Cannabis abuse, uncomplicated; D63.1 Anemia in chronic kidney disease; D50.9 Iron deficiency anemia, unspecified; E78.1 Pure hyperglyceridemia; E11.65 Type 2 diabetes mellitus with hyperglycemia; K76.0 Fatty (change of) liver, not elsewhere classified; E66.9 Obesity, unspecified; K25.9 Gastric ulcer, unspecified as acute or chronic, without hemorrhage or perforation; K21.9 Gastro-esophageal reflux disease without esophagitis; Z87.891 Personal history of nicotine dependence; D63.8 Anemia in other chronic diseases classified elsewhere; E86.9 Volume depletion, unspecified; Z68.27 Body mass index [BMI] 27.0-27.9, adult
CPT/HCPCS: 36415; 36416; 71045; 74019; 74177; 80048; 80053; 81001; 82306; 82607; 82746; 83605; 83690; 83735; 84484; 85025; 86140; 90471; 90670; 90686; 93005; 96361; 96374; 96375; 96376; G0008; G0009; J1650; J1885; J2270; J2405; J3475; J3480; J7050

== ENCOUNTER 2018-10-28 10:40 | Emergency (ER) | payer OTHER ==
[2018-10-28 11:22] LABS: #Lymphocytes 1.8 thou/uL (1.20-3.40); #Monocytes 0.5 thou/uL (0.11-0.59); #Neutrophils 8.1 thou/uL (1.40-6.50); %Basophils 0.1 % (0.0-1.0); %Eosinophils 0.2 % (0.0-10.0); %Lymphocytes 17.6 % (21.0-51.0); %Monocytes 4.6 % (0.0-10.0); %Neutrophils 77.6 % (42.0-75.0); Mean Corpuscular HGB CONC 29.6 g/dL (32.0-36.0); Mean Corpuscular Hemoglobin 20.8 pg (27.0-31.0); Mean Corpuscular Volume 70.3 fL (78.0-98.0); Mean Platelet Volume 8.8 fL (7.4-10.4); Platelet Count 529 thou/uL (130-400); RBC Distribution Width 18.8 % (11.5-14.5); Red Blood Cell (RBC) Count 4.32 mill/uL (4.20-5.40); White Blood Cell (WBC) Count 10.4 thou/uL (4.8-10.8)
[2018-10-28 11:43] LABS: ALT (SGPT) Less than 7 U/L (8-55); AST (SGOT) 10 U/L (5-34); Albumin 3.6 g/dL (3.5-5.0); Alkaline Phosphatase 109 U/L (40-150); Anion Gap 14 mmol/L (10-20); BUN (Urea Nitrogen) 10 mg/dL (7.0-18.7); Bilirubin, Total 0.3 mg/dL (0.2-1.2); Calc. Creatinine Clearance 0 mL/min (70-130); Calcium 9.1 mg/dL (7.8-10.44); Carbon Dioxide 19 mmol/L (22-29); Chloride 105 mmol/L (98-107); Estimated GFR-MDRD Greater than 90; Globulin 4.4 g/dL (2.4-3.5); Glucose 78 mg/dL (70-105); Sodium 134 mmol/L (136-145)
[2018-10-28 11:48] LABS: Bilirubin Negative (Negative); Blood, Urine Negative (Negative); Clarity CLOUDY (Clear); Glucose, Urine (Dipstick) Negative (Negative); Leukocyte Large (Negative); Nitrite Negative (Negative); Protein, Urine (Dipstick) Negative (Neg-Trace); Specific Gravity, Urine 1.014 (1.002-1.036); Urobilinogen 0.2 mg/dL (0.2-1.0)
[2018-10-28 11:50] LABS: Bacteria/HPF 1+ HPF (None Seen); Hyaline Casts/LPF 7-10 HYALINE CAST LPF (0-3 Hyaline); Pathc Cast-AUWi Flag 1.08 (0-2.49); Squamous Epithelial 0-3 HPF (0-3)
[2018-10-28 11:52] LABS: Pregnancy Test - Urine (BHCG) Negative (Negative); Pregu Control Background? CLEAR/WHITE (CLR/WHITE); Pregu Control Bar Appear? YES (CONTROL BAR); Specific Gravity 1.014 (1.002-1.036)
[2018-10-28 11:53] LABS: Elliptocytes SLIGHT = 2-5 cells (100X) (0-1/hpf); Hypochromia MODERATE=16-30 cells (100X) (0-5/hpf); MDiff Complete? YES; Microcytosis SLIGHT = 6-15 cells (100X) (0-5/hpf); Ovalocytes SLIGHT = 2-5 cells (100X) (0-1/hpf); Platelet Morphology Comment Appears Increased; Polychromasia SLIGHT = 2-3 cells (100X) (0-2/hpf); Reflex for Review?? YES
[2018-10-28 11:55] LABS: Acetaminophen Less than 6.0 mcg/mL (10.0-30.0); Alcohol Less than 10 mg/dL (Less than 10); Salicylate Less than 8.0 mg/dL (15.0-30.0)
[2018-10-28 11:58] LABS: Amphetamine Detected (NotDetected); Barbiturates Screen Not Detected (NotDetected); Benzodiazepine Screen Not Detected (NotDetected); Cocaine Metabolite Screen Not Detected (NotDetected); Medtox Control Line Valid? VALID (VALID); Medtox Reader # READER 1; Methadone Not Detected (NotDetected); Methamphetamine Detected (NotDetected); Opiate Screen Not Detected (NotDetected); Oxycodone Screen Not Detected (NotDetected); Phencyclidine (PCP) Not Detected (NotDetected); THC/Cannabinoid Screen Detected (NotDetected); Tricyclic Screen Detected (NotDetected)
--- NOTE | 2018-10-28 13:28 | ULT ---
Ultrasound Doppler duplex venous right lower extremity:: 09/10/2018 HISTORY: Right lower extremity edema in 38-year-old female Dr. Martin reported the positive finding of DVT to clinical medical transcriptionist Domo Tafoya at 1:23 pm on 10/28/2018. He immediately relayed the message to Dr. Young. TECHNIQUE: Grayscale, color-flow, and spectral analysis, of major veins of right lower extremity. FINDINGS: There is noncompressibility due to intraluminal thrombus in the common femoral vein, entire femoral v ein, and entire popliteal vein. There is a lack of blood flow in the mid and distal portions of the femoral vein, and the proximal po rtion of the popliteal vein, representing occlusive thrombosis. Mild expansion of veins indicates that these are probably acute. The greater saphenous and profunda femoral veins are patent and clear. There is flow demonstrated in the posterior tibial vein. There is edema throughout the soft tissues of the right lower extremity. IMPRESSION: Positive for deep venous thrombosis of right lower extremity, acute.
[2018-10-28] MEDS ORDERED: Apixaban 5 MG TAB PO SCH (16:00)
[2018-10-28] MEDS ORDERED: Haloperidol Lactate 5 MG/ML VIAL ONE (18:39)
[2018-10-28] MEDS ORDERED: Lorazepam 2 MG/ML VIAL ONE (18:39)
== END 2018-10-29 01:34 ==
LOC: ERS 10:40
DX: R45.851 Suicidal ideations (principal); I82.401 Acute embolism and thrombosis of unspecified deep veins of right lower extremity; E11.9 Type 2 diabetes mellitus without complications; I10 Essential (primary) hypertension; F32.9 Major depressive disorder, single episode, unspecified; B20 Human immunodeficiency virus [HIV] disease; E78.5 Hyperlipidemia, unspecified; Z79.4 Long term (current) use of insulin; Z79.899 Other long term (current) drug therapy
CPT/HCPCS: 36415; 80053; 80306; 80307; 81003; 81015; 81025; 84443; 85025; 85060; 96372; J1630; J2060

== ENCOUNTER 2018-10-29 10:15 | Emergency (ER) | payer OTHER ==
[2018-10-29] MEDS ORDERED: Cephalexin 250 MG CAP ONE (10:49)
[2018-10-29] MEDS ORDERED: Apixaban 5 MG TAB PO SCH (11:00)
[2018-10-29] MEDS ORDERED: Insulin Regular 300 UNITS/3 ML VIAL ONE (14:42)
== END 2018-10-29 15:56 ==
LOC: ERS 10:15
DX: I82.401 Acute embolism and thrombosis of unspecified deep veins of right lower extremity (principal); N39.0 Urinary tract infection, site not specified; R45.851 Suicidal ideations; E78.5 Hyperlipidemia, unspecified; I10 Essential (primary) hypertension; B20 Human immunodeficiency virus [HIV] disease; F32.9 Major depressive disorder, single episode, unspecified; Z79.84 Long term (current) use of oral hypoglycemic drugs; Z79.899 Other long term (current) drug therapy
CPT/HCPCS: 36416; 99284; J1815

== ENCOUNTER 2018-12-09 01:08 | Emergency (ER) | payer OTHER ==
[2018-12-09 02:02] LABS: #Eosinphils 0.1 thou/uL (0.0-0.7); #Lymphocytes 2.2 thou/uL (1.20-3.40); #Monocytes 0.5 thou/uL (0.11-0.59); #Neutrophils 4.1 thou/uL (1.40-6.50); %Basophils 0.6 % (0.0-1.0); %Lymphocytes 31.8 % (21.0-51.0); %Monocytes 7.7 % (0.0-10.0); Hemoglobin 8.8 g/dL (12.0-16.0); Mean Corpuscular HGB CONC 30.8 g/dL (32.0-36.0); Mean Corpuscular Hemoglobin 21.3 pg (27.0-31.0); Mean Platelet Volume 10.8 fL (7.4-10.4); Platelet Count 292 thou/uL (130-400); Red Blood Cell (RBC) Count 4.15 mill/uL (4.20-5.40)
[2018-12-09 02:21] LABS: Anion Gap 14 mmol/L (10-20); BUN (Urea Nitrogen) 14 mg/dL (7.0-18.7); Calc. Creatinine Clearance 0 mL/min (70-130); Calcium 9.3 mg/dL (7.8-10.44); Carbon Dioxide 20 mmol/L (22-29); Chloride 95 mmol/L (98-107); Estimated GFR-MDRD 51; Potassium 3.7 mmol/L (3.5-5.1); Sodium 125 mmol/L (136-145)
[2018-12-09 02:25] LABS: Glucose 661 mg/dL (70-105)
[2018-12-09] MEDS ORDERED: HumaLOG 300 UNITS/3 ML VIAL ONE (02:38)
== END 2018-12-09 03:31 | disposition home or self-care (01) ==
LOC: ERS 01:08
DX: T71.9XXA Asphyxiation due to unspecified cause, initial encounter (principal); E11.65 Type 2 diabetes mellitus with hyperglycemia; E78.5 Hyperlipidemia, unspecified; I10 Essential (primary) hypertension; B20 Human immunodeficiency virus [HIV] disease; F32.9 Major depressive disorder, single episode, unspecified; Z79.899 Other long term (current) drug therapy; Z79.4 Long term (current) use of insulin; Y04.0XXA Assault by unarmed brawl or fight, initial encounter
CPT/HCPCS: 36416; 80048; 82010; 85025; 96361; 96374

== ENCOUNTER 2018-12-17 11:04 | Emergency (ER) | payer OTHER ==
[2018-12-17 12:34] LABS: Bilirubin Negative (Negative); Blood, Urine Negative (Negative); Clarity Clear (Clear); Glucose, Urine (Dipstick) Greater than 1000 mg/dL (Negative); Leukocyte Negative Leu/uL (Negative); Nitrite Negative (Negative); Protein, Urine (Dipstick) Negative (Neg-Trace); Urobilinogen Normal mg/dL (Less than 2)
[2018-12-17 12:37] LABS: Pregnancy Test - Urine (BHCG) Negative (Negative); Pregu Control Background? CLEAR/WHITE (CLR/WHITE); Pregu Control Bar Appear? YES (CONTROL BAR); Specific Gravity 1.033 (1.002-1.036)
[2018-12-17 12:37] LABS: #Basophils 0.1 thou/uL (0.0-0.2); #Eosinphils 0.1 thou/uL (0.0-0.7); #Lymphocytes 1.7 thou/uL (1.20-3.40); #Monocytes 0.4 thou/uL (0.11-0.59); #Neutrophils 3.1 thou/uL (1.40-6.50); %Eosinophils 1.2 % (0.0-10.0); %Lymphocytes 32.3 % (21.0-51.0); %Monocytes 7.2 % (0.0-10.0); %Neutrophils 58.3 % (42.0-75.0); Hemoglobin 9.1 g/dL (12.0-16.0); Mean Corpuscular HGB CONC 31.4 g/dL (32.0-36.0); Mean Platelet Volume 9.8 fL (7.4-10.4); Platelet Count 363 thou/uL (130-400); RBC Distribution Width 17.3 % (11.5-14.5); Red Blood Cell (RBC) Count 4.34 mill/uL (4.20-5.40); White Blood Cell (WBC) Count 5.4 thou/uL (4.8-10.8)
[2018-12-17 13:05] LABS: ALT (SGPT) 7 U/L (8-55); AST (SGOT) 8 U/L (5-34); Alkaline Phosphatase 140 U/L (40-150); Anion Gap 12 mmol/L (10-20); BUN (Urea Nitrogen) 7 mg/dL (7.0-18.7); Bilirubin, Total 0.3 mg/dL (0.2-1.2); Calc. Creatinine Clearance 0 mL/min (70-130); Calcium 9.2 mg/dL (7.8-10.44); Carbon Dioxide 22 mmol/L (22-29); Chloride 92 mmol/L (98-107); Estimated GFR-MDRD 50; Globulin 3.9 g/dL (2.4-3.5); Lipase 47 U/L (8-78); Potassium 4.4 mmol/L (3.5-5.1); Protein, Total 7.9 g/dL (6.0-8.3); Sodium 122 mmol/L (136-145)
[2018-12-17 13:10] LABS: Glucose 652 mg/dL (70-105)
== END 2018-12-17 13:42 | disposition home or self-care (01) ==
LOC: ERS 11:04
DX: E11.65 Type 2 diabetes mellitus with hyperglycemia (principal); R10.13 Epigastric pain; E78.5 Hyperlipidemia, unspecified; I10 Essential (primary) hypertension; B20 Human immunodeficiency virus [HIV] disease; F32.9 Major depressive disorder, single episode, unspecified; Z79.84 Long term (current) use of oral hypoglycemic drugs; Z79.899 Other long term (current) drug therapy
CPT/HCPCS: 36415; 80053; 81003; 81025; 83690; 85025; 99284

== ENCOUNTER 2019-01-29 23:21 | Emergency (ER) | payer OTHER ==
[2019-01-29 23:48] LABS: Bilirubin Negative (Negative); Blood, Urine Negative (Negative); Clarity Clear (Clear); Glucose, Urine (Dipstick) Greater than 1000 mg/dL (Negative); Leukocyte Negative Leu/uL (Negative); Nitrite Negative (Negative); Protein, Urine (Dipstick) Negative (Neg-Trace); Urobilinogen Normal mg/dL (Less than 2)
[2019-01-29 23:53] LABS: Pregnancy Test - Urine (BHCG) Negative (Negative); Pregu Control Background? CLEAR/WHITE (CLR/WHITE); Pregu Control Bar Appear? YES (CONTROL BAR); Specific Gravity 1.022 (1.002-1.036)
[2019-01-30 00:22] LABS: Hemoglobin 8.3 g/dL (12.0-16.0); Mean Corpuscular Hemoglobin 21.6 pg (27.0-31.0); Mean Corpuscular Volume 74.3 fL (78.0-98.0); Mean Platelet Volume 9.7 fL (7.4-10.4); Platelet Count 274 thou/uL (130-400); RBC Distribution Width 18.7 % (11.5-14.5); Red Blood Cell (RBC) Count 3.82 mill/uL (4.20-5.40); White Blood Cell (WBC) Count 8.4 thou/uL (4.8-10.8)
[2019-01-30 00:31] LABS: ALT (SGPT) 7 U/L (8-55); AST (SGOT) 11 U/L (5-34); Albumin 3.9 g/dL (3.5-5.0); Alkaline Phosphatase 143 U/L (40-150); Anion Gap 17 mmol/L (10-20); BUN (Urea Nitrogen) 14 mg/dL (7.0-18.7); Bilirubin, Total 0.2 mg/dL (0.2-1.2); Calc. Creatinine Clearance 0 mL/min (70-130); Calcium 9.1 mg/dL (7.8-10.44); Carbon Dioxide 17 mmol/L (22-29); Chloride 89 mmol/L (98-107); Estimated GFR-MDRD 43; Globulin 4.4 g/dL (2.4-3.5); Potassium 4.5 mmol/L (3.5-5.1); Protein, Total 8.3 g/dL (6.0-8.3)
[2019-01-30 00:35] LABS: Glucose 969 mg/dL (70-105); Sodium 118 mmol/L (136-145)
[2019-01-30 00:39] LABS: #Eosinphils 0.1 thou/uL (0.0-0.7); #Monocytes 0.5 thou/uL (0.11-0.59); #Neutrophils 5.9 thou/uL (1.40-6.50); %Basophils 0.3 % (0.0-1.0); %Eosinophils 1.1 % (0.0-10.0); %Lymphocytes 23.2 % (21.0-51.0); %Monocytes 5.6 % (0.0-10.0); %Neutrophils 69.7 % (42.0-75.0); Anisocytosis SLIGHT = 6-15 cells (100X) (0-5/hpf); Hypochromia SLIGHT = 6-15 cells (100X) (0-5/hpf); MDiff Complete? YES; Microcytosis SLIGHT = 6-15 cells (100X) (0-5/hpf)
[2019-01-30] MEDS ORDERED: Insulin Regular 300 UNITS/3 ML VIAL ONE (01:20)
== END 2019-01-30 02:53 | disposition home or self-care (01) ==
LOC: ERS 23:21
DX: E11.65 Type 2 diabetes mellitus with hyperglycemia (principal); H60.92 Unspecified otitis externa, left ear; E78.5 Hyperlipidemia, unspecified; I10 Essential (primary) hypertension; Z79.84 Long term (current) use of oral hypoglycemic drugs; Z79.01 Long term (current) use of anticoagulants; Z79.899 Other long term (current) drug therapy
CPT/HCPCS: 36415; 36416; 80053; 81003; 81025; 82010; 85025; 96361; 96374; J1815

== ENCOUNTER 2019-03-02 09:49 | Observation (INO) | payer OTHER ==
[2019-03-02 10:51] LABS: #Monocytes 0.3 thou/uL (0.11-0.59); %Basophils 0.2 % (0.0-1.0); %Eosinophils 0.7 % (0.0-10.0); %Monocytes 7.2 % (0.0-10.0); Hemoglobin 7.5 g/dL (12.0-16.0); Mean Corpuscular HGB CONC 29.5 g/dL (32.0-36.0); Mean Corpuscular Hemoglobin 21.1 pg (27.0-31.0); Mean Corpuscular Volume 71.7 fL (78.0-98.0); Mean Platelet Volume 9.1 fL (7.4-10.4); Platelet Count 290 thou/uL (130-400); RBC Distribution Width 17.4 % (11.5-14.5); Red Blood Cell (RBC) Count 3.55 mill/uL (4.20-5.40); White Blood Cell (WBC) Count 4.5 thou/uL (4.8-10.8)
[2019-03-02 10:57] LABS: ALT (SGPT) 7 U/L (8-55); AST (SGOT) 13 U/L (5-34); Albumin 3.6 g/dL (3.5-5.0); Alkaline Phosphatase 108 U/L (40-150); Anion Gap 12 mmol/L (10-20); BUN (Urea Nitrogen) 14 mg/dL (7.0-18.7); Bilirubin, Total 0.3 mg/dL (0.2-1.2); Calc. Creatinine Clearance 0 mL/min (70-130); Calcium 8.5 mg/dL (7.8-10.44); Carbon Dioxide 20 mmol/L (22-29); Chloride 98 mmol/L (98-107); Estimated GFR-MDRD 48; Globulin 3.2 g/dL (2.4-3.5); Protein, Total 6.8 g/dL (6.0-8.3); Sodium 125 mmol/L (136-145)
[2019-03-02 11:03] LABS: Glucose 731 mg/dL (70-105)
[2019-03-02 11:13] LABS: Bilirubin Negative (Negative); Blood, Urine Negative (Negative); Clarity Clear (Clear); Glucose, Urine (Dipstick) Greater than 1000 mg/dL (Negative); Leukocyte Negative Leu/uL (Negative); Nitrite Negative (Negative); Protein, Urine (Dipstick) Negative (Neg-Trace); Urobilinogen Normal mg/dL (Less than 2)
[2019-03-02] MEDS ORDERED: Insulin Regular 300 UNITS/3 ML VIAL ONE (11:13)
[2019-03-02] MEDS ORDERED: Dextrose 5% in Water 1,000 ML IV PRN (13:24)
[2019-03-02] MEDS ORDERED: HumaLOG 300 UNITS/3 ML VIAL SC PRN (13:24)
[2019-03-02] MEDS ORDERED: Dextrose 50% Abboject 50 ML SYRINGE SLOW IVP PRN (13:24)
[2019-03-02] MEDS ORDERED: Enoxaparin Sodium 40 MG/0.4 ML SYRINGE SC SCH (13:30)
[2019-03-02 14:38] LABS: Iron Binding Capacity, Total 419 mcg/dL (265-497)
[2019-03-02 14:39] LABS: Iron 14 ug/dL (50-170)
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
[2019-03-02 15:21] VITALS: BMI 27.4
[2019-03-02] MEDS: Sodium Chloride 0.9% 1,000 ML IV SCH (16:18)
[2019-03-02] MEDS: Ferrous Sulfate 325 MG TAB PO SCH (16:41)
[2019-03-02] MEDS ORDERED: Acyclovir 400 mg Tablet PO SCH (16:45)
[2019-03-02] MEDS ORDERED: Gemfibrozil 600 MG TAB PO SCH (16:45)
[2019-03-02] MEDS ORDERED: hydrALAZINE 25 MG TAB PO SCH (16:45)
[2019-03-02 17:43] LABS: Amphetamine Detected (NotDetected); Barbiturates Screen Not Detected (NotDetected); Benzodiazepine Screen Not Detected (NotDetected); Cocaine Metabolite Screen Not Detected (NotDetected); Medtox Control Line Valid? VALID (VALID); Medtox Reader # READER 4; Methadone Not Detected (NotDetected); Methamphetamine Detected (NotDetected); Opiate Screen Not Detected (NotDetected); Oxycodone Screen Not Detected (NotDetected); Phencyclidine (PCP) Not Detected (NotDetected); THC/Cannabinoid Screen Detected (NotDetected); Tricyclic Screen Not Detected (NotDetected)
[2019-03-02 17:46] LABS: Hemoglobin A1c 13.6 % (4.0-6.0)
[2019-03-02] MEDS: Pancrelipase DR 12000 1 CAP PO SCH (18:14)
[2019-03-02] MEDS ORDERED: Clopidogrel Bisulfate 75 MG TAB ONE (20:47)
[2019-03-02] MEDS ORDERED: Insulin Regular 300 UNITS/3 ML VIAL SC SCH (21:30)
[2019-03-02] MEDS ORDERED: HumaLOG 300 UNITS/3 ML VIAL SC SCH (21:30)
[2019-03-02] MEDS: Acyclovir 400 mg Tablet PO SCH (21:33)
[2019-03-02] MEDS: hydrALAZINE 25 MG TAB PO SCH (21:33)
[2019-03-02] MEDS: Insulin Glargine 30 UNITS in Pre-Filled Syringe SC SCH (21:42)
[2019-03-02] MEDS: Nicotine 14 MG PATCH TD SCH (21:44)
[2019-03-03] MEDS: Sodium Chloride 0.9% 1,000 ML IV SCH ×4 (01:57→20:24)
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
[2019-03-03] MEDS: HumaLOG 300 UNITS/3 ML VIAL SC PRN ×3 (06:03→20:27)
[2019-03-03 06:09] LABS: ALT (SGPT) 11 U/L (8-55); AST (SGOT) 23 U/L (5-34); Albumin 3.1 g/dL (3.5-5.0); Alkaline Phosphatase 100 U/L (40-150); Anion Gap 9 mmol/L (10-20); BUN (Urea Nitrogen) 9 mg/dL (7.0-18.7); Bilirubin, Total Less than 0.2 mg/dL (0.2-1.2); Calc. Creatinine Clearance 120 mL/min (70-130); Carbon Dioxide 23 mmol/L (22-29); Chloride 102 mmol/L (98-107); Estimated GFR-MDRD 85; Glucose 247 mg/dL (70-105); Potassium 4.2 mmol/L (3.5-5.1); Protein, Total 6.1 g/dL (6.0-8.3); Sodium 130 mmol/L (136-145)
[2019-03-03] MEDS: Pancrelipase DR 12000 1 CAP PO SCH ×3 (08:50→16:20)
[2019-03-03] MEDS: Gemfibrozil 600 MG TAB PO SCH ×2 (08:50→16:20)
[2019-03-03] MEDS: Fluconazole 100 MG TAB PO SCH (08:50)
[2019-03-03] MEDS: Calcium Carbonate + Vit D 1 TAB PO SCH (08:50)
[2019-03-03] MEDS: Ferrous Sulfate 325 MG TAB PO SCH ×2 (08:50→16:20)
[2019-03-03] MEDS: NIFEdipine XL 30 MG TAB PO SCH (08:51)
[2019-03-03] MEDS: hydrALAZINE 25 MG TAB PO SCH ×3 (08:51→20:26)
[2019-03-03] MEDS: Acyclovir 400 mg Tablet PO SCH ×3 (08:51→20:25)
[2019-03-03] MEDS: Insulin Glargine 30 UNITS in Pre-Filled Syringe SC SCH ×2 (08:52→20:26)
[2019-03-03 09:54] LABS: Hemoglobin 6.7 g/dL (12.0-16.0); Mean Corpuscular HGB CONC 29.5 g/dL (32.0-36.0); Mean Corpuscular Hemoglobin 21.4 pg (27.0-31.0); Mean Corpuscular Volume 72.4 fL (78.0-98.0); Red Blood Cell (RBC) Count 3.14 mill/uL (4.20-5.40); White Blood Cell (WBC) Count 4.4 thou/uL (4.8-10.8)
[2019-03-03 09:55] LABS: Mean Platelet Volume 8.7 fL (7.4-10.4); Platelet Count 326 thou/uL (130-400); RBC Distribution Width 17.1 % (11.5-14.5)
[2019-03-03 10:11] LABS: Band 1 % (5-11); Eosinophils 5 % (0-10); Lymphocytes 43 % (21-51); Monocytes 6 % (0-10)
[2019-03-03 10:12] LABS: Hypochromia MODERATE=16-30 cells (100X) (0-5/hpf); Microcytosis MODERATE=15-30 cells (100X) (0-5/hpf); Ovalocytes SLIGHT = 2-5 cells (100X) (0-1/hpf); Platelet Morphology Comment Appears Adequate; Polychromasia SLIGHT = 2-3 cells (100X) (0-2/hpf)
[2019-03-03] MEDS ORDERED: Clopidogrel Bisulfate 75 MG TAB ONE ×2 (11:43→11:44)
[2019-03-03 13:43] LABS: Bacteria/HPF None Seen HPF (None Seen); Bilirubin Negative (Negative); Blood, Urine Negative (Negative); Clarity Clear (Clear); Glucose, Urine (Dipstick) Greater than 1000 mg/dL (Negative); Leukocyte Negative Leu/uL (Negative); Nitrite Negative (Negative); Protein, Urine (Dipstick) Negative (Neg-Trace); RBC/HPF None Seen HPF (0-3); Squamous Epithelial 0-3 HPF (0-3); Urobilinogen Normal mg/dL (Less than 2); WBC/HPF 0-3 HPF (0-3)
[2019-03-03 18:05] LABS: #Eosinphils 0.1 thou/uL (0.0-0.7); #Lymphocytes 2.3 thou/uL (1.20-3.40); #Monocytes 0.5 thou/uL (0.11-0.59); #Neutrophils 3.2 thou/uL (1.40-6.50); %Basophils 0.3 % (0.0-1.0); %Eosinophils 0.9 % (0.0-10.0); %Lymphocytes 37.6 % (21.0-51.0); %Monocytes 7.9 % (0.0-10.0); %Neutrophils 53.3 % (42.0-75.0); Hemoglobin 7.6 g/dL (12.0-16.0); Mean Corpuscular HGB CONC 29.9 g/dL (32.0-36.0); Mean Corpuscular Hemoglobin 22.2 pg (27.0-31.0); Mean Corpuscular Volume 74.2 fL (78.0-98.0); Mean Platelet Volume 8.6 fL (7.4-10.4); Platelet Count 326 thou/uL (130-400); RBC Distribution Width 17.7 % (11.5-14.5); Red Blood Cell (RBC) Count 3.43 mill/uL (4.20-5.40); White Blood Cell (WBC) Count 6.1 thou/uL (4.8-10.8)
[2019-03-03] MEDS: Nicotine 14 MG PATCH TD SCH (20:26)
[2019-03-03] MEDS ORDERED: Lidocaine 2% Viscous Solution 20 ML, Aluminum & Magnesium Hydroxide 30 ML, Donnatal Eli... SSW PRN (21:05)
[2019-03-03] MEDS ORDERED: Ibuprofen 600 MG TAB PO PRN (21:05)
[2019-03-03 22:24] LABS: Hemoglobin 8.5 g/dL (12.0-16.0)
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
[2019-03-04] MEDS: Gemfibrozil 600 MG TAB PO SCH ×2 (06:20→09:02)
[2019-03-04 06:47] LABS: Hemoglobin 7.6 g/dL (12.0-16.0); Mean Corpuscular HGB CONC 29.7 g/dL (32.0-36.0); Mean Corpuscular Hemoglobin 21.9 pg (27.0-31.0); Mean Corpuscular Volume 73.7 fL (78.0-98.0); Mean Platelet Volume 8.8 fL (7.4-10.4); Platelet Count 342 thou/uL (130-400); RBC Distribution Width 17.7 % (11.5-14.5); Red Blood Cell (RBC) Count 3.46 mill/uL (4.20-5.40); White Blood Cell (WBC) Count 5.8 thou/uL (4.8-10.8)
[2019-03-04 07:21] VITALS: TEMP 98
[2019-03-04] MEDS: Calcium Carbonate + Vit D 1 TAB PO SCH (09:01)
[2019-03-04] MEDS: Pancrelipase DR 12000 1 CAP PO SCH ×2 (09:01→12:26)
[2019-03-04] MEDS: Ferrous Sulfate 325 MG TAB PO SCH (09:02)
[2019-03-04] MEDS: Insulin Glargine 30 UNITS in Pre-Filled Syringe SC SCH (09:02)
[2019-03-04] MEDS: hydrALAZINE 25 MG TAB PO SCH (09:02)
[2019-03-04] MEDS: Acyclovir 400 mg Tablet PO SCH (09:02)
[2019-03-04] MEDS: Fluconazole 100 MG TAB PO SCH (09:02)
[2019-03-04] MEDS: NIFEdipine XL 30 MG TAB PO SCH (09:03)
[2019-03-04] MEDS ORDERED: Magnesium Citrate 300 ML BOT PO SCH (10:45)
[2019-03-04 10:50] VITALS: BP 143/91
[2019-03-04] MEDS: Sodium Chloride 0.9% 1,000 ML IV SCH (11:11)
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
[2019-03-04] MEDS: HumaLOG 300 UNITS/3 ML VIAL SC PRN (12:26)
[2019-03-04] MEDS: DOLUTEGRAVIR SODIUM PO SCH (14:36)
[2019-03-04] MEDS: PREZCOBIX PO SCH ×2 (14:36→14:37)
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
== END 2019-03-04 13:34 | disposition home or self-care (01) ==
LOC: ERS 09:49 → EEVIPCON 09:49 → ERHOLD 12:10 → T4-B 14:42
PROVIDERS: ADMIT Emergency Medicine; ATTEND Emergency Medicine
DX: E11.65 Type 2 diabetes mellitus with hyperglycemia (principal); D64.9 Anemia, unspecified; I10 Essential (primary) hypertension; E78.5 Hyperlipidemia, unspecified; K85.90 Acute pancreatitis without necrosis or infection, unspecified; K86.1 Other chronic pancreatitis; E87.1 Hypo-osmolality and hyponatremia; F17.210 Nicotine dependence, cigarettes, uncomplicated; F16.10 Hallucinogen abuse, uncomplicated; F12.10 Cannabis abuse, uncomplicated; F15.10 Other stimulant abuse, uncomplicated; E66.9 Obesity, unspecified; Z68.27 Body mass index [BMI] 27.0-27.9, adult; Z21 Asymptomatic human immunodeficiency virus [HIV] infection status; Z91.14 Patient's other noncompliance with medication regimen; Z79.4 Long term (current) use of insulin; Z79.899 Other long term (current) drug therapy; Z88.5 Allergy status to narcotic agent; Z88.8 Allergy status to other drugs, medicaments and biological substances
CPT/HCPCS: 36415; 36416; 36430; 80053; 80306; 81001; 81003; 82010; 82274; 82728; 83036; 83540; 83550; 85025; 85027; 85060; 86850; 86900; 86901; 96361; 96374; G0378; J1815; P9016

== ENCOUNTER → 2019-03-18 | Emergency (ER) | payer OTHER ==
[~2019-03-18] MED LIST changes: +Acyclovir 400 mg Tablet PO SCH; +Apixaban 5 MG TAB PO SCH; +Gemfibrozil 600 MG TAB PO SCH; -ISOVUE-370 76%-LOCM 1 ML ONE; +Insulin Glargine 30 UNITS in Pre-Filled Syringe 1 EACH SC SCH; +NIFEdipine XL 30 MG TAB ONE; +NIFEdipine XL 30 MG TAB PO SCH; +Pancrelipase DR 12000 1 CAP PO SCH; +hydrALAZINE 25 MG TAB PO SCH; +metFORMIN 500 MG TAB PO SCH
[2019-03-18 23:37] LABS: #Basophils 0.1 thou/uL (0.0-0.2); #Eosinphils 0.1 thou/uL (0.0-0.7); #Lymphocytes 2.1 thou/uL (1.20-3.40); #Monocytes 0.7 thou/uL (0.11-0.59); #Neutrophils 8.2 thou/uL (1.40-6.50); %Basophils 0.6 % (0.0-1.0); %Eosinophils 0.5 % (0.0-10.0); %Lymphocytes 19.1 % (21.0-51.0); %Neutrophils 73.8 % (42.0-75.0); Hemoglobin 10.2 g/dL (12.0-16.0); Mean Corpuscular HGB CONC 31.3 g/dL (32.0-36.0); Mean Corpuscular Hemoglobin 22.5 pg (27.0-31.0); Mean Corpuscular Volume 71.7 fL (78.0-98.0); Mean Platelet Volume 9.6 fL (7.4-10.4); Platelet Count 409 thou/uL (130-400); RBC Distribution Width 19.1 % (11.5-14.5); Red Blood Cell (RBC) Count 4.54 mill/uL (4.20-5.40); White Blood Cell (WBC) Count 11.1 thou/uL (4.8-10.8)
[2019-03-18 23:54] LABS: BHCG - Serum Negative (NEGATIVE); Pregs Control Background? CLEAR/WHITE (CLR/WHITE); Pregs Control Bar Appear? YES (CONTROL BAR)
[2019-03-19 00:03] LABS: Alcohol Less than 10 mg/dL (Less than 10); Salicylate Less than 8.0 mg/dL (15.0-30.0)
[2019-03-19 00:05] LABS: ALT (SGPT) 8 U/L (8-55); AST (SGOT) 16 U/L (5-34); Albumin 4.5 g/dL (3.5-5.0); Alkaline Phosphatase 133 U/L (40-110); Anion Gap 19 mmol/L (10-20); BUN (Urea Nitrogen) 19 mg/dL (7.0-18.7); Bilirubin, Total 0.4 mg/dL (0.2-1.2); CK (CPK) 72 U/L (29-168); Calc. Creatinine Clearance 0 mL/min (70-130); Calcium 10.1 mg/dL (7.8-10.44); Carbon Dioxide 16 mmol/L (22-29); Chloride 95 mmol/L (98-107); Estimated GFR-MDRD 42; Globulin 4.8 g/dL (2.4-3.5); Glucose 345 mg/dL (70-105); Potassium 4.1 mmol/L (3.5-5.1); Protein, Total 9.3 g/dL (6.0-8.3); Sodium 126 mmol/L (136-145)
[2019-03-19 00:38] LABS: Bacteria/HPF None Seen HPF (None Seen); Bilirubin Negative (Negative); Blood, Urine Negative (Negative); Clarity Clear (Clear); Glucose, Urine (Dipstick) Greater than 1000 mg/dL (Negative); Leukocyte 75 Leu/uL (Negative); Nitrite Negative (Negative); Protein, Urine (Dipstick) 10 mg/dL (Neg-Trace); RBC/HPF 0-3 HPF (0-3); Squamous Epithelial 0-3 HPF (0-3); Urobilinogen Normal mg/dL (Less than 2)
[2019-03-19 00:45] LABS: Amphetamine Detected (NotDetected); Barbiturates Screen Not Detected (NotDetected); Benzodiazepine Screen Not Detected (NotDetected); Cocaine Metabolite Screen Not Detected (NotDetected); Medtox Control Line Valid? VALID (VALID); Medtox Reader # READER 4; Methadone Not Detected (NotDetected); Methamphetamine Detected (NotDetected); Opiate Screen Not Detected (NotDetected); Oxycodone Screen Not Detected (NotDetected); Phencyclidine (PCP) Not Detected (NotDetected); THC/Cannabinoid Screen Detected (NotDetected); Tricyclic Screen Detected (NotDetected)
== END ==
LOC: ERS 23:04
DX: T38.3X2A Poisoning by insulin and oral hypoglycemic [antidiabetic] drugs, intentional self-harm, initial encounter (principal); T39.012A Poisoning by aspirin, intentional self-harm, initial encounter; Z79.899 Other long term (current) drug therapy; Z79.4 Long term (current) use of insulin
CPT/HCPCS: 36416; 80053; 80306; 80307; 81003; 81015; 82550; 84443; 84703; 85025; 93005; J1815

== ENCOUNTER 2019-08-22 07:53 | Emergency (ER) | payer OTHER, SELFPAY ==
[2019-08-22 08:47] LABS: Bilirubin Negative (Negative); Blood, Urine 2+ (Negative); Clarity Clear (Clear); Glucose, Urine (Dipstick) Greater than 1000 mg/dL (Negative); Leukocyte Negative Leu/uL (Negative); Nitrite Negative (Negative); Protein, Urine (Dipstick) Negative (Neg-Trace); Squamous Epithelial 0-3 HPF (0-3); Urobilinogen Normal mg/dL (Less than 2)
[2019-08-22 08:56] LABS: Bacteria/HPF Rare-Few HPF (None Seen); Yeast-Budding Rare HPF (None Seen)
[2019-08-22 09:01] LABS: #Eosinphils 0.1 thou/uL (0.0-0.7); #Lymphocytes 1.8 thou/uL (1.20-3.40); #Monocytes 0.5 thou/uL (0.11-0.59); #Neutrophils 3.8 thou/uL (1.40-6.50); %Basophils 0.5 % (0.0-1.0); %Eosinophils 0.9 % (0.0-10.0); %Lymphocytes 29.7 % (21.0-51.0); %Monocytes 7.5 % (0.0-10.0); %Neutrophils 61.3 % (42.0-75.0); Mean Corpuscular HGB CONC 31.2 g/dL (32.0-36.0); Mean Corpuscular Hemoglobin 23.9 pg (27.0-31.0); Mean Corpuscular Volume 76.6 fL (78.0-98.0); Mean Platelet Volume 9.1 fL (7.4-10.4); Platelet Count 349 thou/uL (130-400); RBC Distribution Width 15.1 % (11.5-14.5); Red Blood Cell (RBC) Count 4.63 mill/uL (4.20-5.40); White Blood Cell (WBC) Count 6.2 thou/uL (4.8-10.8)
[2019-08-22 09:18] LABS: BHCG - Serum Negative (NEGATIVE); Pregs Control Background? CLEAR/WHITE (CLR/WHITE); Pregs Control Bar Appear? YES (CONTROL BAR)
[2019-08-22 09:26] LABS: ALT (SGPT) 7 U/L (8-55); AST (SGOT) 8 U/L (5-34); Albumin 3.9 g/dL (3.5-5.0); Alkaline Phosphatase 120 U/L (40-110); Anion Gap 13 mmol/L (10-20); BUN (Urea Nitrogen) 10 mg/dL (7.0-18.7); Bilirubin, Total 0.3 mg/dL (0.2-1.2); Calc. Creatinine Clearance 0 mL/min (70-130); Calcium 9.5 mg/dL (7.8-10.44); Carbon Dioxide 25 mmol/L (22-29); Chloride 92 mmol/L (98-107); Estimated GFR-MDRD 51; Globulin 4.4 g/dL (2.4-3.5); Lipase 27 U/L (8-78); Potassium 4.1 mmol/L (3.5-5.1); Protein, Total 8.3 g/dL (6.0-8.3); Sodium 126 mmol/L (136-145)
[2019-08-22 09:29] LABS: Glucose 627 mg/dL (70-105)
[2019-08-22] MEDS ORDERED: HumaLOG 300 UNITS/3 ML VIAL ONE (09:36)
== END 2019-08-22 10:08 | disposition home or self-care (01) ==
LOC: ERS 07:53
DX: N93.9 Abnormal uterine and vaginal bleeding, unspecified (principal); N39.0 Urinary tract infection, site not specified; E11.65 Type 2 diabetes mellitus with hyperglycemia; I10 Essential (primary) hypertension; E78.5 Hyperlipidemia, unspecified; B20 Human immunodeficiency virus [HIV] disease; F32.9 Major depressive disorder, single episode, unspecified; F17.210 Nicotine dependence, cigarettes, uncomplicated; Z79.4 Long term (current) use of insulin; Z79.899 Other long term (current) drug therapy
CPT/HCPCS: 36415; 36416; 80053; 81003; 81015; 83690; 84703; 85025; 86850; 86900; 86901; 96372; 99284

== ENCOUNTER 2019-11-21 13:02 | Inpatient (IN) | payer OTHER ==
[2019-11-21] MEDS ORDERED: Metoclopramide HCl 10 MG/2 ML VIAL ONE (13:47)
[2019-11-21 14:07] LABS: #Basophils 0.1 thou/uL (0.0-0.2); #Lymphocytes 2.2 thou/uL (1.20-3.40); #Monocytes 0.4 thou/uL (0.11-0.59); #Neutrophils 5.9 thou/uL (1.40-6.50); %Basophils 0.9 % (0.0-1.0); %Eosinophils 0.2 % (0.0-10.0); %Lymphocytes 25.3 % (21.0-51.0); %Monocytes 4.4 % (0.0-10.0); %Neutrophils 69.2 % (42.0-75.0); Hemoglobin 11.1 g/dL (12.0-16.0); Mean Corpuscular Hemoglobin 24.2 pg (27.0-31.0); Mean Corpuscular Volume 80.6 fL (78.0-98.0); Mean Platelet Volume 8.8 fL (7.4-10.4); Platelet Count 310 thou/uL (130-400); RBC Distribution Width 16.2 % (11.5-14.5); Red Blood Cell (RBC) Count 4.57 mill/uL (4.20-5.40); White Blood Cell (WBC) Count 8.6 thou/uL (4.8-10.8)
[2019-11-21 14:13] LABS: Bilirubin Negative (Negative); Blood, Urine Negative (Negative); Clarity Clear (Clear); Glucose, Urine (Dipstick) Greater than 1000 mg/dL (Negative); Leukocyte Negative Leu/uL (Negative); Nitrite Negative (Negative); Protein, Urine (Dipstick) Negative (Neg-Trace); Urobilinogen Normal mg/dL (Less than 2)
[2019-11-21 14:22] LABS: Bacteria/HPF None Seen HPF (None Seen); RBC/HPF 0-3 HPF (0-3); Squamous Epithelial 0-3 HPF (0-3); WBC/HPF 0-3 HPF (0-3)
[2019-11-21 14:30] LABS: Anisocytosis SLIGHT = 6-15 cells (100X) (0-5/hpf); Hypochromia SLIGHT = 6-15 cells (100X) (0-5/hpf); MDiff Complete? YES; Platelet Morphology Comment Appears Adequate; Polychromasia SLIGHT = 2-3 cells (100X) (0-2/hpf)
[2019-11-21 14:33] LABS: ALT (SGPT) 13 U/L (8-55); AST (SGOT) 26 U/L (5-34); Albumin 3.6 g/dL (3.5-5.0); Alkaline Phosphatase 137 U/L (40-110); Anion Gap 20 mmol/L (10-20); BUN (Urea Nitrogen) 13 mg/dL (7.0-18.7); Bilirubin, Total 0.3 mg/dL (0.2-1.2); Calc. Creatinine Clearance 0 mL/min (70-130); Calcium 8.2 mg/dL (7.8-10.44); Carbon Dioxide 14 mmol/L (22-29); Chloride 87 mmol/L (98-107); Estimated GFR-MDRD 47; Globulin 3.8 g/dL (2.4-3.5); Glucose 931 mg/dL (70-105); Lipase 98 U/L (8-78); Magnesium 1.8 mg/dL (1.6-2.6); Potassium 5.3 mmol/L (3.5-5.1); Protein, Total 7.4 g/dL (6.0-8.3); Sodium 116 mmol/L (136-145)
[2019-11-21] MEDS ORDERED: HUMULIN R 100 UNITS in Sodium Chloride 0.9% 100 ML IVPB SCH ×2 (15:00→17:30)
--- NOTE | 2019-11-21 15:37 | PDOC.FPRHP ---
- History of Present Illness Chief Complaint: Not feeling well History of Present Illness: Pt is a 39 yo female with PMH significant for HTN, HIV, dyslipidemia, normocytic anemia, genital herpes, chronic pancreatitis 2/2 prior HIV meds, fatty liver who presents not feeling well for a couple of days. She has not been taking her fast acting insulin as directed with meals. She has increased urination, remains with an appetite. She denies chest pain, epigastric pain similar to pancreatitis. She did endorse vaginal discharge similar to yeast infection and genital ulceration/herpes. TAMP ED Course: In the ED she was started on an insulin drip and given fluids. - Allergies/Adverse Reactions Allergies Allergy/AdvReac Type Severity Reaction Status Date / Time ROBERT Inhibitors Allergy Severe Swollen Verified 10/29/19 18:13 Lips acetaminophen [From Tylenol] Allergy Severe seizure Verified 10/29/19 18:13 lisinopril Allergy Severe Swollen Verified 10/29/19 18:13 Lips hydrocodone [Hydrocodone] Allergy Intermediate Rash Verified 10/29/19 18:13 tramadol Allergy Verified 10/29/19 18:13 gadobenate dimeglumine Allergy Uncoded 10/29/19 18:13 - Home Medications Medication Instructions Recorded Confirmed Type metFORMIN [Glucophage] 500 mg PO BID-AC 11/08/16 11/21/19 History Pantoprazole [Protonix] 40 mg PO DAILY #30 tab 11/24/16 11/21/19 Rx NIFEdipine [Procardia XL] 30 mg PO DAILY #30 tab 12/16/16 11/21/19 Rx Insulin Detemir 100 UNITS/ML 40 units SC HS 12/29/16 11/21/19 History [Levemir] Insulin Detemir 100 UNITS/ML 45 unit SQ DAILY 12/29/16 11/21/19 History [Levemir] Bictegrav/Emtricit/Tenofov Ala 1 each PO HS 06/19/19 11/21/19 History [Biktarvy 50-200-25 mg Tablet] Insulin Lispro [Humalog [place] 0 unit SQ QID PRN 06/19/19 11/21/19 History Kwikpen] Pancrelipase 82022 [Creon DR 3 cap PO TID 06/19/19 11/21/19 History 12,000 Units] - History PMHx: HTN, HIV, chronic pancreatitis, anemia, fatty liver, uterine fibroids, DMII, noncompliance, obesity, genital herpes PSHx: cholecystectomy, R oophorectomy, pancreatic cyst drainage, tubal ligation FHx: DM II, HTN, HLD Social: denies current IV drug use, endorse marijuana, denies tobacco and alcohol - Review of Systems General: denies: fever/chills, weight/appetite/sleep changes Eyes: denies: eye pain, vision changes ENT: denies: nasal congestion, rhinorrhea Respiratory: denies: cough, congestion, shortness of breath Cardiovascular: denies: chest pain, palpitation, edema Gastrointestinal: denies: nausea, vomiting, diarrhea, constipation Genitourinary: reports: polyuria, discharge. denies: dysuria Skin: denies: rashes, lesions Musculoskeletal: denies: pain, tenderness Neurological: reports: weakness. denies: numbness Psychological: denies: anxiety, depression - Vital signs BP: 151/109 HR: 89 RR: 12 Tmax: 98.6 Pox: 100% on RA Wt: 72 kg - Physical Exam Constitutional: NAD, awake, alert and oriented HEENT: PERRLA, EOMI Neck: FROM, no JVD Heart: RRR, normal S1/S2, no edema Lungs: CTAB, no respiratory distress, good air movement Abdomen: soft, non-tender, bowel sounds present -Abdomen: Vaginal check revealed one ulcer on R labia, mild white discharge Musculoskeletal: normal structure, normal tone Neurological: no focal deficit, CN II-XII intact Skin: no rash/lesions, no jaundice -Skin: decrease capillary refill Heme/Lymphatic: no purpura, no petechia Psychiatric: normal mood and affect, intact recent and remote memory FMR H&P: Results - Labs Result Diagrams: 11/22/19 03:11 11/22/19 03:11 Lab results: WBC 8.6 thou/uL (4.8-10.8) 11/21/19 13:55 Hgb 11.1 g/dL (12.0-16.0) L 11/21/19 13:55 Hct 36.8 % (36.0-47.0) 11/21/19 13:55 MCV 80.6 fL (78.0-98.0) 11/21/19 13:55 Plt Count 310 thou/uL (130-400) 11/21/19 13:55 Neutrophils % 69.2 % (42.0-75.0) 11/21/19 13:55 Sodium 116 mmol/L (136-145) L* 11/21/19 13:55 Potassium 5.3 mmol/L (3.5-5.1) H 11/21/19 13:55 Chloride 87 mmol/L (98-107) L 11/21/19 13:55 Carbon Dioxide 14 mmol/L (22-29) L 11/21/19 13:55 BUN 13 mg/dL (7.0-18.7) 11/21/19 13:55 Creatinine 1.50 mg/dL (0.6-1.1) H 11/21/19 13:55 Glucose 931 mg/dL (70-105) H* 11/21/19 13:55 Calcium 8.2 mg/dL (7.8-10.44) 11/21/19 13:55 Total Bilirubin 0.3 mg/dL (0.2-1.2) 11/21/19 13:55 AST 26 U/L (5-34) 11/21/19 13:55 ALT 13 U/L (8-55) 11/21/19 13:55 Alkaline Phosphatase 137 U/L (40-110) H 11/21/19 13:55 Serum Total Protein 7.4 g/dL (6.0-8.3) 11/21/19 13:55 Albumin 3.6 g/dL (3.5-5.0) 11/21/19 13:55 Lipase 98 U/L (8-78) H 11/21/19 13:55 Urine Ketones 40 mg/dL (Negative) A 11/21/19 13:55 Urine Blood Negative (Negative) 11/21/19 13:55 Urine Nitrite Negative (Negative) 11/21/19 13:55 Ur Leukocyte Esterase Negative Ursula/uL (Negative) 11/21/19 13:55 Urine RBC 0-3 HPF (0-3) 11/21/19 13:55 Urine WBC 0-3 HPF (0-3) 11/21/19 13:55 Ur Squamous Epith Cells 0-3 HPF (0-3) 11/21/19 13:55 Urine Bacteria None Seen HPF (None Seen) 06/06/20 13:55 - EKG Interpretation EKG: NSR FMR H&P: A/P - Problem List (1) DKA (diabetic ketoacidoses) Current Visit: Yes Status: Acute Code(s): E11.10 - TYPE 2 DIABETES MELLITUS WITH KETOACIDOSIS WITHOUT COMA (2) Hyperglycemia Current Visit: No Status: Acute Code(s): R73.9 - HYPERGLYCEMIA, UNSPECIFIED (3) Hyponatremia Current Visit: No Status: Acute Code(s): E87.1 - HYPO-OSMOLALITY AND HYPONATREMIA (4) Pancreatitis, chronic Current Visit: No Status: Acute Code(s): K86.1 - OTHER CHRONIC PANCREATITIS (5) Diabetes type 2, uncontrolled Current Visit: No Status: Chronic Code(s): E11.65 - TYPE 2 DIABETES MELLITUS WITH HYPERGLYCEMIA (6) HIV (human immunodeficiency virus infection) Current Visit: No Status: Chronic (7) HTN (hypertension) Current Visit: No Status: Chronic Code(s): I10 - ESSENTIAL (PRIMARY) HYPERTENSION Qualifiers: Hypertension type: essential hypertension Qualified Code(s): I10 - Essential (primary) hypertension (8) Noncompliance with medication regimen Current Visit: No Status: Chronic Code(s): Z91.14 - PATIENT'S OTHER NONCOMPLIANCE WITH MEDICATION REGIMEN - Plan Pt is a 39 yo female here for : # DKA - DKA protocol - q2h BMPs - q1h BG checks - monitor K - Anion Gap elevated at 15, beta hydroxybuterate elevated, ketones in urine - fluid resuscitate - no signs of inciting pancreatitis, cardiac disease. Likely 2/2 non-compliance vs vaginal yeast infection - NPO # DMII - hold home Levemir 45 Uam, 40 Upm - hold metformin - repeat a1c # JUANI - likely 2/2 dehydration # Genital HSV - start acyclovir # Genital Yeast Infection - give fluconazole # HTN - hold home nifedipine - labetolol prn # Chronic Pancreatitis - montior # HIV - continue home meds - will check if she is compliant with Dr. Quinn tomorrow # Normocytic Anemia - monitor # Obesity - counseling outpt # Non-compliance Diet: NPO VTE: SCD's Fluids: per protocol Code: Full Dispo: admit to imcu for DKA FMR H&P: Upper Level - Pertinent history 39 yo F with hx of DM2, recurrent pancreatitis, HLD and HIV here with complaint of weakness and high blood sugar. She states that for the past month her home glucometer has only read "high." She also complains of associated n/v, frequency , blurred vision, increased thirst. She denies fever, chills, n/v, dysuria, or CP. She states that she takes her meds daily other than her humalog and tries to keep a low carb diet. Her most recent A1c on 09/18/19 was greater than 15.5. In the ED her blood glucose was over 900, she had an anion gap of 15 and her beta hydroxybuterate was positive. PMHx DM2 HIV HLD HSV NIMO HTN hx of DVT Recurrent pancreatitis Surgical Hx cholecystectomy Social hx Denies tobacco or etoh. Admits to marijuana - Pertinent findings See internal combustion engine subassembler portion for full ROS, PE, vitals, and labs ROS General complains of fatigue and weight loss. denies fever, chills. HEENT complains of blurred vision. Denies headache CV Denies CP or palpitations Resp denies SOB or cough GI complains of N/V. Denies diarrhea, constipation, or abdominal pain complains of frequency. Denies dysuria or hematuria Endo complains of increased thirst Neuro denies weakness. Complains of numbness in her feet PE General A&O x4, NAD HEENT NCAT, PERRLA EOMI CV RRR Resp CTA Abd mild LLQ TTP, no distension, soft, no guarding Extremities normal ROM. Loss of sensation in plantar surface of feet - Plan Date/Time: 11/21/19 1537 Jeffrey Sanz, DO PGY3, have evaluated this patient and agree with findings/ plan as outlined by internal combustion engine subassembler resident. Pertinent changes/additions are listed here. 1. DKA - admit to IMCU and start DKA protocol - NPO - Check A1c 2. DM2 with hyperglycemia - restart home meds and titrate insulin when off of DKA protocol. - would expect starting SGLT2 in addition to home meds - will likely need statin - consider starting ARB due to angioedema associated with ACEI 3. JUANI - secondary to dehydration from DKA. Check labs in am 4. HLD - home meds 5. HIV - most recent labs in September show undetectable viral load - continue home meds See internal combustion engine subassembler portion for management of other chronic illness Code Full Diet NPO then low carb PPx lovenox Dispo: Pt is currently stable, would expect improvement over then next 36 hours and dc home in 2-3 days Addendum - Attending - Attending Attestation Date/Time: 11/22/19 5830 I personally evaluated the patient and discussed the management with Dr. Harden on 11/21/19. I agree with the History, Examination, Assessment and Plan documented above with any addition or exceptions noted below. 29 y.o. BF with h/o DM1 here with DKA, severe hyperglycemia, HIV, HSV after ran out of insulin and states couldn't get a refill from clinic. IVF, Insulin Drip , Monitor glucose, lytes, AG. Resume home maintenance once corrected.
[2019-11-21] MEDS ORDERED: Sodium Chloride 0.9% 1,000 ML IV PRN ×4 (17:16)
[2019-11-21] MEDS ORDERED: CCU Electrolyte Replacement 1 EACH IVPB ONE (17:16)
[2019-11-21] MEDS ORDERED: D5 1/2 NS w/20 mEq KCL 1,000 ML IV PRN (17:16)
[2019-11-21] MEDS ORDERED: Dextrose 5 %-0.45 % NaCl 1,000 ML IV PRN (17:16)
[2019-11-21] MEDS ORDERED: NS 0.9% w/ 20 MEQ KCL 1,000 ML IV PRN ×2 (17:16)
[2019-11-21] MEDS ORDERED: Potassium Phosphate 9 MMOL in Sodium Chloride 0.9% 100 ML IVPB PRN (18:03)
[2019-11-21] MEDS ORDERED: Magnesium 2 GM/50 ML 2 GM in Premix Bag 1 BAG IVPB PRN (18:03)
[2019-11-21] MEDS ORDERED: Potassium Phosphate 15 MMOL in Sodium Chloride 0.9% 250 ML 250 ML IV PRN (18:03)
[2019-11-21] MEDS ORDERED: Potassium Phosphate 12 MMOL in Sodium Chloride 0.9% 250 ML 250 ML IV PRN (18:03)
[2019-11-21] MEDS ORDERED: Potassium Chloride 40 MEQ in Sodium Chloride 0.9% 250 ML 250 ML IVPB PRN (18:03)
[2019-11-21] MEDS ORDERED: Magnesium Oxide 400 MG TAB PO PRN ×2 (18:03)
[2019-11-21] MEDS ORDERED: Potassium Chloride 40 MEQ in Premix Bag 1 BAG IVPB PRN (18:03)
[2019-11-21] MEDS ORDERED: PHOS-NAK 1 PKT PACK PO PRN ×2 (18:03)
[2019-11-21] MEDS ORDERED: Potassium Chloride 20 MEQ TAB PO PRN (18:03)
[2019-11-21 18:14] LABS: Anion Gap 14 mmol/L (10-20); BUN (Urea Nitrogen) 10 mg/dL (7.0-18.7); Calc. Creatinine Clearance 0 mL/min (70-130); Calcium 8.4 mg/dL (7.8-10.44); Carbon Dioxide 16 mmol/L (22-29); Chloride 97 mmol/L (98-107); Estimated GFR-MDRD 60; Glucose 532 mg/dL (70-105); Magnesium 1.6 mg/dL (1.6-2.6); Potassium 3.8 mmol/L (3.5-5.1); Sodium 123 mmol/L (136-145)
[2019-11-21] MEDS ORDERED: Labetalol HCl 100 MG/20 ML VIAL SLOW IVP PRN (18:30)
[2019-11-21 18:59] LABS: Phosphorus 2.2 mg/dL (2.3-4.7)
[2019-11-21] MEDS ORDERED: Insulin Glargine 30 UNITS in Pre-Filled Syringe 1 EACH SC SCH (21:00)
[2019-11-21 21:43] VITALS: BMI 22.1
[2019-11-21] MEDS ORDERED: Acyclovir Sodium 350 MG in Sodium Chloride 0.9% 100 ML IVPB SCH (22:00)
[2019-11-21 22:12] LABS: Anion Gap 12 mmol/L (10-20); BUN (Urea Nitrogen) 8 mg/dL (7.0-18.7); Calc. Creatinine Clearance 79 mL/min (70-130); Calcium 8.4 mg/dL (7.8-10.44); Carbon Dioxide 21 mmol/L (22-29); Chloride 101 mmol/L (98-107); Estimated GFR-MDRD 68; Glucose 201 mg/dL (70-105); Potassium 3.2 mmol/L (3.5-5.1); Sodium 131 mmol/L (136-145)
[2019-11-21] MEDS ORDERED: Potassium Chloride 20 MEQ TAB PO SCH (23:30)
[2019-11-22] MEDS: Potassium Chloride 20 MEQ in Lactated Ringer's 1,000 ML IV SCH ×2 (00:16→11:00)
[2019-11-22] MEDS ORDERED: Dextrose 5% in Water 1,000 ML IV PRN (00:25)
[2019-11-22] MEDS ORDERED: Dextrose 50% Abboject 50 ML SYRINGE SLOW IVP PRN (00:25)
[2019-11-22] MEDS ORDERED: HumaLOG 300 UNITS/3 ML VIAL SC PRN ×2 (00:25)
[2019-11-22 01:55] LABS: Anion Gap 13 mmol/L (10-20); BUN (Urea Nitrogen) 10 mg/dL (7.0-18.7); Calc. Creatinine Clearance 76 mL/min (70-130); Calcium 7.9 mg/dL (7.8-10.44); Carbon Dioxide 19 mmol/L (22-29); Chloride 99 mmol/L (98-107); Estimated GFR-MDRD 65; Glucose 532 mg/dL (70-105); Sodium 127 mmol/L (136-145)
[2019-11-22] MEDS: Acyclovir Sodium 350 MG in Sodium Chloride 0.9% 100 ML IVPB SCH ×3 (02:29→17:35)
[2019-11-22 04:18] LABS: Anion Gap 12 mmol/L (10-20); BUN (Urea Nitrogen) 9 mg/dL (7.0-18.7); Calc. Creatinine Clearance 80 mL/min (70-130); Calcium 7.9 mg/dL (7.8-10.44); Carbon Dioxide 20 mmol/L (22-29); Chloride 101 mmol/L (98-107); Estimated GFR-MDRD 69; Glucose 382 mg/dL (70-105); Potassium 3.6 mmol/L (3.5-5.1); Sodium 129 mmol/L (136-145)
[2019-11-22 04:40] LABS: #Basophils 0.1 thou/uL (0.0-0.2); #Eosinphils 0.1 thou/uL (0.0-0.7); #Lymphocytes 2.8 thou/uL (1.20-3.40); #Monocytes 0.4 thou/uL (0.11-0.59); #Neutrophils 5.3 thou/uL (1.40-6.50); %Lymphocytes 32.4 % (21.0-51.0); %Monocytes 4.8 % (0.0-10.0); %Neutrophils 60.8 % (42.0-75.0); Hemoglobin 10.3 g/dL (12.0-16.0); Mean Corpuscular HGB CONC 31.1 g/dL (32.0-36.0); Mean Corpuscular Hemoglobin 23.8 pg (27.0-31.0); Mean Corpuscular Volume 76.5 fL (78.0-98.0); Platelet Count 316 thou/uL (130-400); RBC Distribution Width 16.3 % (11.5-14.5); Red Blood Cell (RBC) Count 4.32 mill/uL (4.20-5.40); White Blood Cell (WBC) Count 8.6 thou/uL (4.8-10.8)
--- NOTE | 2019-11-22 05:52 | PDOC.FM ---
- Subjective Subjective: Patient doing well this morning. Was able to tolerate dinner last night well. She discussed that she ran out of her short-acting insulin at home and that is why her BG was elevated. - Objective Vital Signs & Weight: Vital Signs (12 hours) Temp Pulse Resp BP Pulse Ox 11/22/19 04:00 98.2 F 11/22/19 00:00 98.3 F 11/21/19 19:50 98.7 F 95 20 148/104 H 100 Weight Weight 72.076 kg I&O: 11/20/19 11/21/19 11/22/19 06:59 06:59 06:59 Intake Total 2144 Output Total 1650 Balance 494 Result Diagrams: 11/22/19 03:11 11/22/19 03:11 Phys Exam - Physical Examination Constitutional: NAD HEENT: moist MMs, sclera anicteric Neck: supple, full ROM Respiratory: no wheezing, clear to auscultation bilateral Cardiovascular: RRR, no significant murmur Gastrointestinal: soft, no distention Musculoskeletal: no edema, pulses present Neurological: non-focal, moves all 4 limbs Lymphatic: no nodes Psychiatric: normal affect, A&O x 3 Skin: no rash, normal turgor Dx/Plan (1) DKA (diabetic ketoacidoses) Code(s): E11.10 - TYPE 2 DIABETES MELLITUS WITH KETOACIDOSIS WITHOUT COMA Status: Acute (2) Anemia, normocytic normochromic Code(s): D64.9 - ANEMIA, UNSPECIFIED Status: Chronic (3) Diabetes type 2, uncontrolled Code(s): E11.65 - TYPE 2 DIABETES MELLITUS WITH HYPERGLYCEMIA Status: Chronic (4) Dyslipidemia Code(s): E78.5 - HYPERLIPIDEMIA, UNSPECIFIED Status: Chronic (5) HIV (human immunodeficiency virus infection) Status: Chronic (6) Noncompliance with medication regimen Code(s): Z91.14 - PATIENT'S OTHER NONCOMPLIANCE WITH MEDICATION REGIMEN Status : Chronic - Plan Plan: Pt is a 39F with a PMHx of HTN, HIV, HLD, normocytic anemia, noncompliance, fatty liver, uterine fibroids, DM2, chronic pancreatitis, obesity admitted for : # DKA likely 2/2 non-compliance vs vaginal yeast infection - Patient has been on DKA protocol - q2h BMPs: anion gap 15>8 - Started on 30u lantus last night and this am - Was provided with dinner last night, tolerated it well - q1h BG checks - monitor K # DMII - Started on 30u lantus last night - Can transition to home Levemir 45 Uam, 40 Upm today - Can transition to home metformin - repeat a1c pending # JUANI - likely 2/2 dehydration # 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 Will monitor ssi and consider adjusting long- acting insulin regimen Addendum - Attending - Attending Attestation Date/Time: 11/22/19 6068 I personally evaluated the patient and discussed the management with Dr. Monet. I agree with the History, Examination, Assessment and Plan documented above with any addition or exceptions noted below. AG close. Transitioning to SC insulin. Move to medical. Titrate SC insulin. likely d/c tomorrow.
[2019-11-22 08:11] LABS: Hemoglobin A1c Greater than 14.0 % (4.0-6.0)
[2019-11-22] MEDS: Enoxaparin Sodium 40 MG/0.4 ML SYRINGE SC SCH (08:17)
[2019-11-22] MEDS: NIFEdipine XL 30 MG TAB PO SCH (08:17)
[2019-11-22] MEDS: Insulin Glargine 45 UNITS in Pre-Filled Syringe 1 EACH SC SCH (08:43)
[2019-11-22] MEDS ORDERED: FLUCONAZOLE IVPB SCH ×2 (09:00)
[2019-11-22] MEDS ORDERED: Non-Formulary Item 1 EACH (Insulin Detemir 100 Units/Ml [Levemir] 45 UNIT) SQ SCH (09:00)
[2019-11-22] MEDS ORDERED: Insulin Glargine 30 UNITS in Pre-Filled Syringe 1 EACH SC SCH (09:00)
[2019-11-22] MEDS ORDERED: Pancrelipase DR 12000 1 CAP PO SCH ×2 (09:00→13:45)
[2019-11-22] MEDS ORDERED: NACL ISO OSM IVPB SCH ×2 (09:00)
[2019-11-22] MEDS: HumaLOG 300 UNITS/3 ML VIAL SC PRN ×3 (11:22→21:55)
[2019-11-22] MEDS: metFORMIN 500 MG TAB PO SCH (17:35)
[2019-11-22] MEDS ORDERED: Non-Formulary Item 1 EACH (Insulin Detemir 100 Units/Ml [Levemir] 40 UNITS) SC SCH (21:00)
[2019-11-22] MEDS ORDERED: Insulin Glargine 40 UNITS in Pre-Filled Syringe 1 EACH SC SCH (21:00)
[2019-11-22] MEDS: (Bictegrav/Emtricit/Tenofov Ala [Biktarvy 50-200-25 Mg Tablet] PO SCH ×2 (21:48)
[2019-11-22] MEDS: Pancrelipase DR 12000 1 CAP PO SCH (21:59)
[2019-11-23] MEDS: HumaLOG 300 UNITS/3 ML VIAL SC PRN ×3 (00:50→11:39)
[2019-11-23] MEDS ORDERED: Calcium Carbonate 500 MG ChewTAB PO PRN (01:29)
[2019-11-23] MEDS: Acyclovir Sodium 350 MG in Sodium Chloride 0.9% 100 ML IVPB SCH ×2 (02:10→12:01)
[2019-11-23] MEDS ORDERED: Melatonin 3 MG TAB PO PRN (02:49)
[2019-11-23] MEDS ORDERED: Ondansetron PF 4 MG/2 ML Vial IVP PRN (04:07)
[2019-11-23 05:21] LABS: #Basophils 0.1 thou/uL (0.0-0.2); #Eosinphils 0.1 thou/uL (0.0-0.7); #Lymphocytes 2.5 thou/uL (1.20-3.40); #Monocytes 0.5 thou/uL (0.11-0.59); %Basophils 1.1 % (0.0-1.0); %Eosinophils 0.9 % (0.0-10.0); %Lymphocytes 30.9 % (21.0-51.0); %Monocytes 6.2 % (0.0-10.0); %Neutrophils 61.1 % (42.0-75.0); Hemoglobin 11.4 g/dL (12.0-16.0); Mean Corpuscular HGB CONC 31.8 g/dL (32.0-36.0); Mean Corpuscular Hemoglobin 24.5 pg (27.0-31.0); Mean Corpuscular Volume 77.3 fL (78.0-98.0); Platelet Count 297 thou/uL (130-400); RBC Distribution Width 16.7 % (11.5-14.5); Red Blood Cell (RBC) Count 4.63 mill/uL (4.20-5.40); White Blood Cell (WBC) Count 8.2 thou/uL (4.8-10.8)
[2019-11-23 05:43] LABS: Anion Gap 11 mmol/L (10-20); BUN (Urea Nitrogen) 5 mg/dL (7.0-18.7); Calc. Creatinine Clearance 99 mL/min (70-130); Calcium 8.3 mg/dL (7.8-10.44); Carbon Dioxide 19 mmol/L (22-29); Chloride 106 mmol/L (98-107); Estimated GFR-MDRD 88; Glucose 212 mg/dL (70-105); Potassium 3.6 mmol/L (3.5-5.1); Sodium 132 mmol/L (136-145)
--- NOTE | 2019-11-23 08:00 | PDOC.FM ---
- Subjective Subjective: Patient has no complaints this morning. She did have 1 episode of vomiting yesterday, which she says was around 1500. Attributes this to the food she ate at lunch, was able to tolerate dinner. Patient requests this morning that she get refills on all her blood pressure and diabetes medications, as she states she has been out of most of her home meds before presentation to the hospital. - Objective MAR Reviewed: Yes Vital Signs & Weight: Vital Signs (12 hours) Temp Pulse Resp BP BP Pulse Ox 11/23/19 07:52 98.6 F 90 20 128/86 100 11/22/19 21:00 94 124/82 11/22/19 20:05 100 Weight Weight 72.076 kg Most Recent Monitor Data Heart Rate from ECG 81 NIBP 137/91 NIBP BP-Mean 106 Respiration from ECG 19 SpO2 100 I&O: 11/22/19 11/23/19 11/24/19 06:59 06:59 06:59 Intake Total 2444 2554 Output Total 2100 100 Balance 344 2454 Result Diagrams: 11/23/19 05:08 11/23/19 05:08 Phys Exam - Physical Examination Constitutional: NAD HEENT: moist MMs, sclera anicteric Neck: supple, full ROM Respiratory: no wheezing, clear to auscultation bilateral Cardiovascular: RRR, no significant murmur Gastrointestinal: soft, non-tender, no distention, positive bowel sounds Musculoskeletal: no edema, pulses present Neurological: normal sensation, moves all 4 limbs Psychiatric: normal affect, A&O x 3 Skin: no rash, normal turgor Dx/Plan (1) Herpes genitalis in women Code(s): A60.09 - HERPESVIRAL INFECTION OF OTHER UROGENITAL TRACT Status: Acute (2) DKA (diabetic ketoacidoses) Code(s): E11.10 - TYPE 2 DIABETES MELLITUS WITH KETOACIDOSIS WITHOUT COMA Status: Acute Qualifiers: Diabetes mellitus type: type 2 Diabetes mellitus complication detail: without coma Qualified Code(s): E11.10 - Type 2 diabetes mellitus with ketoacidosis without coma (3) Hyperglycemia Code(s): R73.9 - HYPERGLYCEMIA, UNSPECIFIED Status: Acute (4) Hyponatremia Code(s): E87.1 - HYPO-OSMOLALITY AND HYPONATREMIA Status: Acute (5) Diabetes type 2, uncontrolled Code(s): E11.65 - TYPE 2 DIABETES MELLITUS WITH HYPERGLYCEMIA Status: Chronic - Plan Plan: Pt is a 39F with a PMHx of HTN, HIV, HLD, normocytic anemia, noncompliance, fatty liver, uterine fibroids, DM2, chronic pancreatitis, obesity admitted for : # DKA likely 2/2 non-compliance vs vaginal yeast infection - Patient has been on DKA protocol - q2h BMPs: anion gap 15>8 - Started on 30u bid lantus on 11/20, increased to 45u qam & 40 u qpm on 11/21 -blood sugars still >200, consider increasing basal insulin today -will need to transition to home with sliding scale with meals, was supposed to have done this with clinic but she never picked up the meds - Was provided with meals, tolerated it okay-did have 1 episode of vomiting yesterday afternoon that patient attributes to food not settling and unable to use Tums - q1h BG checks - monitor K # DMII - Started on 30u lantus 11/20 - Transitioned to home Levemir 45 Uam, 40 Upm on 11/21, consider continuing to titrate up dosing today - continue home metformin - repeat a1c >14% # JUANI - likely 2/2 dehydration # 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 Will monitor ssi and consider adjusting long-acting insulin regimen. Anticipate ready for discharge home in next 24-48 hours. Addendum - Attending - Attending Attestation Date/Time: 11/23/19 6980 I personally evaluated the patient and discussed the management with Dr. Briscoe. I agree with the History, Examination, Assessment and Plan documented above with any addition or exceptions noted below. Patient feeling well. Making small adjustments to insulin regimen but should be stable for discharge later today.
[2019-11-23] MEDS: Insulin Glargine 45 UNITS in Pre-Filled Syringe 1 EACH SC SCH (08:21)
[2019-11-23] MEDS: Pancrelipase DR 12000 1 CAP PO SCH ×2 (08:22→11:57)
[2019-11-23] MEDS: NIFEdipine XL 30 MG TAB PO SCH (08:22)
[2019-11-23] MEDS: Enoxaparin Sodium 40 MG/0.4 ML SYRINGE SC SCH (08:23)
[2019-11-23] MEDS: metFORMIN 500 MG TAB PO SCH (08:23)
[2019-11-23] MEDS ORDERED: Acyclovir 400 mg Tablet PO SCH (09:00)
[2019-11-23 19:45] VITALS: BP 140/99; TEMP 98.4
--- NOTE | 2019-11-24 04:44 | DIS ---
DATE OF ADMISSION: 11/21/2019 DATE OF DISCHARGE: 11/23/2019 RESIDENT: Rayna Briscoe DO. ADMITTING ATTENDING: Lionel Saenz MD. DISCHARGE ATTENDING: Tomi Harkins MD CONSULTS: None. PROCEDURES: None. PRIMARY DIAGNOSIS: Diabetic ketoacidosis, likely secondary to noncompliance. SECONDARY DIAGNOSES: 1. Type 2 diabetes, uncontrolled. 2. Acute kidney injury, likely secondary to dehydration. 3. Genital HSV. 4. Genital yeast infection. 5. Hypertension. 6. Chronic pancreatitis. 7. HIV. 8. Normocytic anemia. 9. Obesity. DISCHARGE MEDICATIONS: 1. Metformin 500 mg p.o. b.i.d. 2. Nifedipine XL 30 mg p.o. daily. 3. Pantoprazole 40 mg p.o. daily. 4. Insulin glargine (Lantus) 45 units subcu in the morning. 5. Insulin glargine 40 units subcu in the evening. 6. Humalog sliding scale 8 units subcu t.i.d. with meals. 7. Acyclovir 400 mg p.o. t.i.d. for 9 additional [address] 8[address]on [address] 12,000 units 3 capsules p.o. t.i.d. 9. Biktarvy 50-200-25 mg tablets 1 tablet p.o. at bedtime. DISCONTINUED MEDICATIONS: None. HISTORY OF PRESENT ILLNESS/HOSPITAL COURSE: The patient is a 39-year-old female with past medical history as above, who presented to [facility] Emergency Department on November 20, 2028 after stating she had not been taking her fast-acting insulin with meals. She also reported that she had been out of her insulin for over a week. She reported increased urination and vaginal discharge and lesions. Otherwise denied any other complaints. She was found on lab work to have a glucose of 931, and she was subsequently started on an insulin drip and given fluids by the ED. She was admitted to inpatient on the medical floor. She was started on DKA protocol, her anion gap was elevated at 15 and beta hydroxybutyrate was elevated with ketones in the urine. The patient's elevated blood sugars were thought to be due to noncompliance. The patient normally takes Levemir 45 units in the a.m., 40 units in the p.m. However, given that she had been out of her insulin for an extended period, she was restarted at 30 units of Lantus initially. This was ultimately titrated up when she was off the DKA protocol. The Lantus was titrated back to home dosing of 45 units in the a.m. and 40 units in the p.m. A repeat A1c revealed greater than 14%. Prior to discharge, the patient reported that she needed refills on all of her medications including nifedipine, metformin, Protonix. The patient's pharmacy was called and she was given refills on these medications as well as given a prescription for Lantus and Humalog sliding scale. The patient was instructed on how to use her insulin medications. Of note, the patient was treated for genital HSV with acyclovir during this hospitalization, she will need to continue treatment for an additional 9 days. The patient was also treated for a genital yeast infection with fluconazole, completed course during hospitalization. On the afternoon of November 23, 2019, the patient was deemed stable for discharge back to home with close followup at [facility]. DISPOSITION: Stable. DISCHARGE INSTRUCTIONS: 1. Location: Home. 2. Diet: Heart healthy. 3. Activity: As tolerated. 4. Followup: At [facility] in 2 to 3 days. Job ID: [id number]
[2019-11-24 14:56] LABS: CO2 Tension (PvCO2) 32.1 mmHg (40.0-50.0)
[2019-11-24 14:57] LABS: Base Excess-Venous -7.6 mmol/L (-2.0 to 3.0); Bicarbonate (HCO3v) 17.4 mmol/L (22.0-28.0); Hemoglobin - Calc 8.3 g/dL (12.0-16.0); vO2 Saturation-calc 92.6 % (60.0-85.0)
[2019-11-24 14:58] LABS: Potassium 5.2 mmol/L (3.5-5.1); Sodium 113 mmol/L (138-145)
[2019-11-24 14:59] LABS: Chloride 87 mmol/L (98-107); T. Carbon Dioxide 18.3 mmol/L (22.0-28.0)
== END 2019-11-23 14:12 | disposition home or self-care (01) | DRG 638 ==
LOC: ERS 13:02 → IMCU/EMU 15:11 → T4-B 11-22 10:38
PROVIDERS: ADMIT Family Medicine; ATTEND Family Medicine
DX: E11.10 Type 2 diabetes mellitus with ketoacidosis without coma (principal); N17.9 Acute kidney failure, unspecified; K86.1 Other chronic pancreatitis; E86.0 Dehydration; B02.9 Zoster without complications; D64.9 Anemia, unspecified; E78.5 Hyperlipidemia, unspecified; E66.9 Obesity, unspecified; Z21 Asymptomatic human immunodeficiency virus [HIV] infection status; F41.1 Generalized anxiety disorder; E11.9 Type 2 diabetes mellitus without complications; K76.0 Fatty (change of) liver, not elsewhere classified; Z91.14 Patient's other noncompliance with medication regimen; Z98.51 Tubal ligation status; Z86.718 Personal history of other venous thrombosis and embolism; Z79.01 Long term (current) use of anticoagulants; Z68.22 Body mass index [BMI] 22.0-22.9, adult
CPT/HCPCS: 36415; 36416; 80048; 80053; 81003; 82010; 82330; 82435; 82803; 83036; 83690; 83735; 83930; 84100; 84132; 84295; 84484; 85014; 85025; 87077; 87086; 93005; 94760; 96365; 96366; 96367; 96375; J0133; J1450; J1650; J1815; J2765; J3480; J3490; J7120

== ENCOUNTER 2020-07-15 16:36 | Inpatient (IN) | payer OTHER ==
[2020-07-15] MEDS: Chlorhexidine Gluconate 15 ML UDCUP SSP SCH (20:27)
[2020-07-15 20:40] VITALS: BMI 24.4
[2020-07-15] MEDS ORDERED: Promethazine HCl 25 MG/ML VIAL IM PRN (21:11)
[2020-07-15] MEDS ORDERED: Dextrose 5% in Water 1,000 ML IV PRN (21:11)
[2020-07-15] MEDS ORDERED: Ondansetron PF 4 MG/2 ML Vial IVP PRN (21:11)
[2020-07-15] MEDS ORDERED: hydrALAZINE 20 MG/ML VIAL SLOW IVP PRN (21:11)
[2020-07-15] MEDS ORDERED: Dextrose 50% Abboject 50 ML SYRINGE SLOW IVP PRN (21:11)
[2020-07-15] MEDS ORDERED: Insulin Regular 300 UNITS/3 ML VIAL SC PRN ×2 (21:11)
[2020-07-15] MEDS: Morphine 2 MG/ML VIAL SLOW IVP PRN (21:23)
[2020-07-15] MEDS: Clindamycin/D5W 600 MG in Premix Bag 1 BAG IVPB SCH (21:24)
[2020-07-15] MEDS: Ketorolac Tromethamine 30 MG/ML VIAL IVP SCH (23:44)
[2020-07-15] MEDS: Sodium Chloride 0.9% 1,000 ML IV SCH (23:48)
[2020-07-16] MEDS: Insulin Regular 300 UNITS/3 ML VIAL SC PRN ×3 (00:48→17:48)
[2020-07-16 01:25] LABS: Glucose POC Confirmation 799 mg/dl (70-105)
[2020-07-16] MEDS: Morphine 2 MG/ML VIAL SLOW IVP PRN ×3 (01:44→21:27)
[2020-07-16 02:37] LABS: SARS-CoV-2 PCR by NAA Not Detected (NotDetected)
[2020-07-16] MEDS: Ketorolac Tromethamine 30 MG/ML VIAL IVP SCH ×3 (05:20→17:49)
[2020-07-16] MEDS: Clindamycin/D5W 600 MG in Premix Bag 1 BAG IVPB SCH ×3 (05:22→21:26)
[2020-07-16 05:43] LABS: Anion Gap 9 mmol/L (10-20); BUN (Urea Nitrogen) 10 mg/dL (7.0-18.7); Calc. Creatinine Clearance 120 mL/min (70-130); Calcium 8.2 mg/dL (7.8-10.44); Carbon Dioxide 23 mmol/L (22-29); Chloride 99 mmol/L (98-107); Glucose 271 mg/dL (70-105); Magnesium 1.3 mg/dL (1.6-2.6); Phosphorus 3.4 mg/dL (2.3-4.7); Potassium 3.9 mmol/L (3.5-5.1); Sodium 127 mmol/L (136-145)
[2020-07-16] MEDS ORDERED: Hydrocortisone 1% Cream 30 GM TUBE ONE (07:33)
[2020-07-16] MEDS ORDERED: Chlorhexidine Gluconate 15 ML UDCUP SSP ONE (07:33)
[2020-07-16] MEDS ORDERED: XYLOCAINE 2%-EPI 1:100,000 20 ML VIAL ONE (07:33)
[2020-07-16] MEDS: Sodium Chloride 0.9% 1,000 ML IV SCH ×2 (07:59→14:58)
[2020-07-16] MEDS ORDERED: Prevnar 13-Val Conj/PF 0.5 ML SYRINGE IM ONE (09:00)
[2020-07-16] MEDS ORDERED: FLU VACC QS2020-21(6MOS UP)/PF 60 MCG/0.5 ML SYRINGE IM ONE (09:00)
[2020-07-16] MEDS ORDERED: Famotidine 20 MG TAB PO SCH (09:00)
[2020-07-16 09:18] LABS: #Eosinphils 0.1 thou/uL (0.0-0.7); #Lymphocytes 1.5 thou/uL (1.20-3.40); #Monocytes 0.5 thou/uL (0.11-0.59); %Basophils 0.3 % (0.0-1.0); %Eosinophils 0.8 % (0.0-10.0); %Lymphocytes 21.2 % (21.0-51.0); %Monocytes 6.8 % (0.0-10.0); %Neutrophils 70.9 % (42.0-75.0); Hemoglobin 8.8 g/dL (12.0-16.0); Hypochromia SLIGHT = 6-15 cells (100X) (0-5/hpf); MDiff Complete? YES; Mean Corpuscular Hemoglobin 22.1 pg (27.0-31.0); Mean Corpuscular Volume 73.5 fL (78.0-98.0); Mean Platelet Volume 7.6 fL (7.4-10.4); Microcytosis SLIGHT = 6-15 cells (100X) (0-5/hpf); Ovalocytes SLIGHT = 2-5 cells (100X) (0-1/hpf); Platelet Count 428 thou/uL (130-400); RBC Distribution Width 16.5 % (11.5-14.5); Red Blood Cell (RBC) Count 4.01 mill/uL (4.20-5.40)
[2020-07-16] MEDS ORDERED: Rocuronium Bromide 10 MG/ML (10ML VIAL) ONE (09:26)
[2020-07-16] MEDS ORDERED: Glycopyrrolate 0.2 MG/ML 5 ML SYRINGE ONE (09:26)
[2020-07-16] MEDS ORDERED: Ondansetron PF 4 MG/2 ML Vial ONE (09:26)
[2020-07-16] MEDS ORDERED: PROPOFOL 200 MG/20 ML VIAL ONE (09:26)
[2020-07-16] MEDS ORDERED: Ketorolac Tromethamine 30 MG/ML VIAL ONE (09:26)
[2020-07-16] MEDS ORDERED: ePHEDrine 50 MG/ML VIAL ONE (09:26)
[2020-07-16] MEDS ORDERED: Lidocaine 1% PF 5 ML VIAL ONE (09:26)
[2020-07-16] MEDS ORDERED: Dexamethasone 20 MG/5 ML VIAL ONE (09:26)
[2020-07-16] MEDS ORDERED: Fentanyl 100 MCG/2 ML VIAL ONE ×3 (09:29→14:23)
[2020-07-16] MEDS ORDERED: Dexmedetomidine 200 MCG/2 ML VIAL ONE (09:30)
[2020-07-16] MEDS ORDERED: HYDROmorphone 0.5 MG/0.5 ML SYRINGE ONE (09:30)
[2020-07-16] MEDS ORDERED: AFRIN NASAL MIST 15 ML BOT ONE (09:34)
[2020-07-16] MEDS: Acyclovir 400 mg Tablet PO SCH ×3 (10:12→21:26)
[2020-07-16] MEDS: Fluconazole 100 MG TAB PO SCH (10:12)
[2020-07-16] MEDS: NIFEdipine XL 30 MG TAB PO SCH (10:12)
[2020-07-16] MEDS: Polyethylene Glycol 3350 17 GM Packet PO SCH (10:12)
[2020-07-16] MEDS: Pancrelipase DR 12,000 1 CAP PO SCH ×3 (10:12→21:25)
[2020-07-16] MEDS: Insulin Glargine 45 UNITS in Pre-Filled Syringe 1 EACH SC SCH (10:12)
[2020-07-16] MEDS: Chlorhexidine Gluconate 15 ML UDCUP SSP SCH ×2 (10:12→21:25)
[2020-07-16] MEDS: Senokot S 8.6-50 MG TAB PO SCH ×2 (10:13→21:26)
[2020-07-16] MEDS ORDERED: Sodium Chloride 0.9% 10 ML ONE (10:36)
[2020-07-16] MEDS ORDERED: Bacitracin Zinc Ointment 30 gm TUBE ONE (13:10)
[2020-07-16] MEDS ORDERED: PACU-Morphine 4MG/ML VIAL SLOW IVP PRN (14:08)
[2020-07-16] MEDS ORDERED: Promethazine HCl 25 MG/ML VIAL SLOW IVP PRN (14:08)
[2020-07-16] MEDS ORDERED: Promethazine HCl 25 MG/ML VIAL IM PRN (14:08)
[2020-07-16] MEDS ORDERED: HYDROmorphone 2 MG/ML VIAL SLOW IVP PRN (14:08)
[2020-07-16] MEDS ORDERED: Ondansetron HCl/PF 4 MG/2 ML Vial IVP PRN (14:08)
[2020-07-16] MEDS: Insulin Glargine 40 UNITS in Pre-Filled Syringe 1 EACH SC SCH (21:26)
[2020-07-17] MEDS: Ketorolac Tromethamine 30 MG/ML VIAL IVP SCH (00:20)
[2020-07-17] MEDS: Insulin Regular 300 UNITS/3 ML VIAL SC PRN ×3 (00:20→20:54)
[2020-07-17] MEDS: Sodium Chloride 0.9% 1,000 ML IV SCH ×2 (02:36→05:33)
[2020-07-17] MEDS: Morphine 2 MG/ML VIAL SLOW IVP PRN ×2 (03:02→08:05)
[2020-07-17] MEDS: Clindamycin/D5W 600 MG in Premix Bag 1 BAG IVPB SCH ×3 (05:33→20:51)
[2020-07-17 06:35] LABS: #Lymphocytes 1.9 thou/uL (1.20-3.40); #Monocytes 0.5 thou/uL (0.11-0.59); #Neutrophils 6.7 thou/uL (1.40-6.50); %Basophils 0.3 % (0.0-1.0); %Eosinophils 0.3 % (0.0-10.0); %Lymphocytes 20.2 % (21.0-51.0); %Monocytes 5.8 % (0.0-10.0); %Neutrophils 73.3 % (42.0-75.0); Hemoglobin 8.5 g/dL (12.0-16.0); Mean Corpuscular HGB CONC 30.2 g/dL (32.0-36.0); Mean Corpuscular Hemoglobin 22.3 pg (27.0-31.0); Mean Corpuscular Volume 73.8 fL (78.0-98.0); Mean Platelet Volume 7.3 fL (7.4-10.4); Platelet Count 455 thou/uL (130-400); RBC Distribution Width 16.5 % (11.5-14.5); Red Blood Cell (RBC) Count 3.84 mill/uL (4.20-5.40); White Blood Cell (WBC) Count 9.2 thou/uL (4.8-10.8)
[2020-07-17 06:59] LABS: Anion Gap 10 mmol/L (10-20); BUN (Urea Nitrogen) 7 mg/dL (7.0-18.7); Calc. Creatinine Clearance 116 mL/min (70-130); Calcium 7.8 mg/dL (7.8-10.44); Carbon Dioxide 24 mmol/L (22-29); Chloride 99 mmol/L (98-107); Glucose 345 mg/dL (70-105); Magnesium 1.3 mg/dL (1.6-2.6); Phosphorus 3.1 mg/dL (2.3-4.7); Potassium 4.1 mmol/L (3.5-5.1); Sodium 129 mmol/L (136-145)
[2020-07-17] MEDS ORDERED: oxyCODONE 5 MG TAB PO PRN (08:35)
[2020-07-17] MEDS ORDERED: Magnesium 2 GM/50 ML 2 GM in Premix Bag 1 BAG IVPB SCH (08:45)
[2020-07-17] MEDS: Insulin Glargine 45 UNITS in Pre-Filled Syringe 1 EACH SC SCH (09:21)
[2020-07-17] MEDS: NIFEdipine XL 30 MG TAB PO SCH (09:35)
[2020-07-17] MEDS: Fluconazole 100 MG TAB PO SCH (09:35)
[2020-07-17] MEDS: Chlorhexidine Gluconate 15 ML UDCUP SSP SCH ×2 (09:35→20:55)
[2020-07-17] MEDS: Pancrelipase DR 12,000 1 CAP PO SCH ×3 (09:35→22:45)
[2020-07-17] MEDS: Acyclovir 400 mg Tablet PO SCH ×3 (09:36→22:36)
[2020-07-17] MEDS: Polyethylene Glycol 3350 17 GM Packet PO SCH (09:37)
[2020-07-17] MEDS: Senokot S 8.6-50 MG TAB PO SCH ×2 (09:37→20:59)
[2020-07-17] MEDS ORDERED: Dexamethasone 4 mg/ml Vial SLOW IVP SCH (12:15)
[2020-07-17] MEDS: Ibuprofen 800 MG TAB PO SCH ×2 (14:24→22:36)
[2020-07-17] MEDS: Insulin Glargine 40 UNITS in Pre-Filled Syringe 1 EACH SC SCH (20:51)
[2020-07-17] MEDS ORDERED: Bictegrav/Emtricit/Tenofov Ala [Biktarvy 50-200-25 Mg Tablet] PO SCH (22:00)
[2020-07-18] MEDS: Clindamycin/D5W 600 MG in Premix Bag 1 BAG IVPB SCH (05:23)
[2020-07-18] MEDS: Ibuprofen 800 MG TAB PO SCH (05:23)
[2020-07-18] MEDS: Insulin Regular 300 UNITS/3 ML VIAL SC PRN (05:27)
[2020-07-18] MEDS: Pancrelipase DR 12,000 1 CAP PO SCH (09:36)
[2020-07-18] MEDS: Senokot S 8.6-50 MG TAB PO SCH (09:36)
[2020-07-18] MEDS: Fluconazole 100 MG TAB PO SCH (09:36)
[2020-07-18] MEDS: Chlorhexidine Gluconate 15 ML UDCUP SSP SCH (09:36)
[2020-07-18] MEDS: Polyethylene Glycol 3350 17 GM Packet PO SCH (09:36)
[2020-07-18] MEDS: Acyclovir 400 mg Tablet PO SCH (09:36)
[2020-07-18] MEDS: NIFEdipine XL 30 MG TAB PO SCH (09:37)
[2020-07-18] MEDS: Insulin Glargine 45 UNITS in Pre-Filled Syringe 1 EACH SC SCH (09:37)
[2020-07-18 09:41] LABS: Hemoglobin A1c Greater than 14.0 % (4.0-6.0)
[2020-07-18 11:13] VITALS: BP 151/95; TEMP 97.3
[2020-07-18] MEDS ORDERED: Clindamycin 150 MG CAP PO SCH (14:00)
[2020-07-18] MEDS ORDERED: Bictegrav/Emtricit/Tenofov Ala [Biktarvy 50-200-25 Mg Tablet] PO SCH (21:00)
== END 2020-07-18 13:30 | disposition home or self-care (01) | DRG 141 ==
LOC: SURG A 18:06
PROVIDERS: ADMIT Surgery; ATTEND Surgery
PROC: 0NSV04Z Reposition Left Mandible with Internal Fixation Device, Open Approach (ICD-10-PCS; principal; 2020-07-16)
PROC: 0NBV0ZZ Excision of Left Mandible, Open Approach (ICD-10-PCS; 2020-07-16)
DX: S02.602A Fracture of unspecified part of body of left mandible, initial encounter for closed fracture (principal); K86.1 Other chronic pancreatitis; B20 Human immunodeficiency virus [HIV] disease; X58.XXXA Exposure to other specified factors, initial encounter; I10 Essential (primary) hypertension; Z20.822 Contact with and (suspected) exposure to COVID-19; E11.9 Type 2 diabetes mellitus without complications; F19.10 Other psychoactive substance abuse, uncomplicated; E78.5 Hyperlipidemia, unspecified; Z90.49 Acquired absence of other specified parts of digestive tract; Z98.51 Tubal ligation status; Z88.8 Allergy status to other drugs, medicaments and biological substances; Z79.4 Long term (current) use of insulin
CPT/HCPCS: 36415; 36416; 70486; 80048; 82947; 83036; 83735; 84100; 85025; 87635; C1713; J1100; J1170; J1815; J1885; J2270; J2405; J2704; J3010; J3475; J3490; U0003; U0005

== ENCOUNTER 2020-10-12 20:28 | Inpatient (IN) | payer OTHER ==
[~2020-10-12 20:28] MED LIST changes: -Acyclovir 400 mg Tablet PO SCH; -Apixaban 5 MG TAB PO SCH; -Gemfibrozil 600 MG TAB PO SCH; -Insulin Glargine 30 UNITS in Pre-Filled Syringe 1 EACH SC SCH; +Iopamidol-370 76% 500 ML 1 ML ONE; -NIFEdipine XL 30 MG TAB ONE; -NIFEdipine XL 30 MG TAB PO SCH; -Pancrelipase DR 12000 1 CAP PO SCH; -hydrALAZINE 25 MG TAB PO SCH; -metFORMIN 500 MG TAB PO SCH
[2020-10-12 22:17] LABS: Hemoglobin 9.3 g/dL (12.0-16.0); Mean Corpuscular HGB CONC 29.1 g/dL (32.0-36.0); Mean Corpuscular Hemoglobin 21.3 pg (27.0-31.0); Mean Corpuscular Volume 73.3 fL (78.0-98.0); Mean Platelet Volume 9.4 fL (7.4-10.4); Platelet Count 357 thou/uL (130-400); RBC Distribution Width 16.1 % (11.5-14.5); Red Blood Cell (RBC) Count 4.38 mill/uL (4.20-5.40); White Blood Cell (WBC) Count 17.5 thou/uL (4.8-10.8)
[2020-10-12 22:25] LABS: BHCG - Serum Negative (NEGATIVE); Pregs Control Background? CLEAR/WHITE (CLR/WHITE); Pregs Control Bar Appear? YES (CONTROL BAR)
[2020-10-12] MEDS ORDERED: Clindamycin/D5W 900 MG in Premix Bag 1 BAG IVPB SCH (22:30)
[2020-10-12 22:32] LABS: ALT (SGPT) 18 U/L (8-55); AST (SGOT) 14 U/L (5-34); Albumin 3.3 g/dL (3.5-5.0); Alkaline Phosphatase 184 U/L (40-110); Anion Gap 17 mmol/L (10-20); BUN (Urea Nitrogen) 16 mg/dL (7.0-18.7); Bilirubin, Total 0.6 mg/dL (0.2-1.2); Calc. Creatinine Clearance 0 mL/min (70-130); Calcium 8.7 mg/dL (7.8-10.44); Carbon Dioxide 20 mmol/L (22-29); Chloride 91 mmol/L (98-107); Globulin 4.7 g/dL (2.4-3.5); Potassium 4.3 mmol/L (3.5-5.1); Sodium 124 mmol/L (136-145)
[2020-10-12 22:36] LABS: Band 2 % (5-11); Hypochromia SLIGHT = 6-15 cells (100X) (0-5/hpf); Lymphocytes 15 % (21-51); MDiff Complete? YES; Microcytosis SLIGHT = 6-15 cells (100X) (0-5/hpf); Monocytes 5 % (0-10); Neutrophil 78 % (42-75)
[2020-10-12] MEDS ORDERED: Vancomycin 1 GM/200 ML BAG ONE (22:36)
[2020-10-12 22:45] LABS: Glucose 755 mg/dL (70-105)
[2020-10-12] MEDS ORDERED: Ondansetron PF 4 MG/2 ML Vial ONE (23:26)
[2020-10-13] MEDS ORDERED: Dextrose 5% in Water 1,000 ML IV PRN (00:37)
[2020-10-13] MEDS ORDERED: Insulin Regular 300 UNITS/3 ML VIAL ONE (00:41)
[2020-10-13] MEDS ORDERED: Potassium Chloride 20 MEQ in Lactated Ringer's 1,000 ML IV SCH (01:15)
[2020-10-13 02:18] LABS: Actual Bicarbonate (HCO3v) 17 mEq/L (22-28); Analyzer IN Cardio ER; Base Excess -3.9 mEq/L (-2.0 to +3.0); Calcium, Ionized (venous) 0.89 mmol/L (1.16-1.32); Chloride (VBG) 100 mmol/L (98-106); Hemoglobin (Hb) 9.9 g/dL (11.7-15.5); Potassium (VBG) 3.88 mmol/L (3.70-5.30); Sodium 127.4 mmol/L (133-146); pH (venous) 7.58 (7.32-7.43)
[2020-10-13 04:08] VITALS: BMI 22.1
[2020-10-13] MEDS: Clindamycin/D5W 600 MG in Premix Bag 1 BAG IVPB SCH ×2 (05:16→14:32)
[2020-10-13] MEDS: Insulin Regular 300 UNITS/3 ML VIAL SC PRN ×3 (06:47→20:30)
[2020-10-13 07:48] LABS: #Lymphocytes 1.2 thou/uL (1.20-3.40); #Monocytes 0.6 thou/uL (0.11-0.59); #Neutrophils 8.5 thou/uL (1.40-6.50); %Basophils 0.1 % (0.0-1.0); %Eosinophils 0.4 % (0.0-10.0); %Lymphocytes 11.4 % (21.0-51.0); %Monocytes 6.2 % (0.0-10.0); %Neutrophils 81.9 % (42.0-75.0); Hemoglobin 8.1 g/dL (12.0-16.0); Mean Corpuscular Hemoglobin 22.2 pg (27.0-31.0); Mean Corpuscular Volume 74.2 fL (78.0-98.0); Platelet Count 269 thou/uL (130-400); RBC Distribution Width 15.8 % (11.5-14.5); Red Blood Cell (RBC) Count 3.64 mill/uL (4.20-5.40); White Blood Cell (WBC) Count 10.4 thou/uL (4.8-10.8)
[2020-10-13 07:58] LABS: Anion Gap 13 mmol/L (10-20); BUN (Urea Nitrogen) 9 mg/dL (7.0-18.7); Calc. Creatinine Clearance 94 mL/min (70-130); Calcium 8.6 mg/dL (7.8-10.44); Carbon Dioxide 20 mmol/L (22-29); Chloride 102 mmol/L (98-107); Glucose 310 mg/dL (70-105); Potassium 4.3 mmol/L (3.5-5.1); Sodium 131 mmol/L (136-145)
[2020-10-13] MEDS ORDERED: Vancomycin HCl 750 MG in Sodium Chloride 0.9% 250 ML 250 ML IVPB SCH (08:00)
[2020-10-13 08:30] LABS: Hypochromia SLIGHT = 6-15 cells (100X) (0-5/hpf); MDiff Complete? YES; Microcytosis SLIGHT = 6-15 cells (100X) (0-5/hpf); Ovalocytes SLIGHT = 2-5 cells (100X) (0-1/hpf); Platelet Morphology Comment Appears Adequate; Polychromasia SLIGHT = 2-3 cells (100X) (0-2/hpf)
[2020-10-13] MEDS: Ferrous Sulfate 325 MG TAB PO SCH (08:41)
[2020-10-13] MEDS: Acyclovir 400 mg Tablet PO SCH ×3 (08:41→20:31)
[2020-10-13] MEDS: NIFEdipine XL 30 MG TAB PO SCH (08:41)
[2020-10-13] MEDS: Pancrelipase DR 12,000 1 CAP PO SCH ×3 (08:42→20:29)
[2020-10-13 08:46] LABS: SARS-CoV-2 PCR by NAA Not Detected (NotDetected)
[2020-10-13] MEDS ORDERED: Lantus 1000 UNITS/10 ML VIAL SC SCH ×3 (09:00→21:00)
[2020-10-13] MEDS ORDERED: Lactated Ringer's 1,000 ML IV SCH (10:00)
[2020-10-13] MEDS ORDERED: Heparin 1,000 UNITS/ML VIAL ONE ×2 (10:57→14:38)
[2020-10-13] MEDS ORDERED: cefTRIAXone\\ROCEPHIN 2 GM in Sodium Chloride 0.9% 100 ML IVPB SCH (13:00)
[2020-10-13] MEDS: metroNIDAZOLE 500 MG in Premix Bag 1 BAG IVPB SCH ×2 (15:01→22:38)
[2020-10-13] MEDS: cefTRIAXone\\ROCEPHIN 2 GM in Sodium Chloride 0.9% 100 ML IVPB SCH (16:59)
[2020-10-13] MEDS: Enoxaparin Sodium 40 MG/0.4 ML SYRINGE SC SCH (20:29)
[2020-10-13] MEDS ORDERED: Bictegrav/Emtricit/Tenofov Ala [Biktarvy 50-200-25 Mg Tablet] PO SCH (21:00)
[2020-10-14] MEDS: metroNIDAZOLE 500 MG in Premix Bag 1 BAG IVPB SCH ×3 (05:28→22:32)
[2020-10-14 05:51] LABS: #Eosinphils 0.1 thou/uL (0.0-0.7); #Lymphocytes 1.5 thou/uL (1.20-3.40); #Monocytes 0.6 thou/uL (0.11-0.59); #Neutrophils 3.6 thou/uL (1.40-6.50); %Basophils 0.4 % (0.0-1.0); %Eosinophils 1.3 % (0.0-10.0); %Lymphocytes 25.7 % (21.0-51.0); %Monocytes 10.9 % (0.0-10.0); %Neutrophils 61.7 % (42.0-75.0); Mean Corpuscular HGB CONC 30.1 g/dL (32.0-36.0); Mean Corpuscular Hemoglobin 22.7 pg (27.0-31.0); Mean Corpuscular Volume 75.3 fL (78.0-98.0); Mean Platelet Volume 8.7 fL (7.4-10.4); Platelet Count 273 thou/uL (130-400); RBC Distribution Width 15.8 % (11.5-14.5); Red Blood Cell (RBC) Count 3.52 mill/uL (4.20-5.40); White Blood Cell (WBC) Count 5.8 thou/uL (4.8-10.8)
[2020-10-14 06:01] LABS: Anion Gap 12 mmol/L (10-20); BUN (Urea Nitrogen) 10 mg/dL (7.0-18.7); Calc. Creatinine Clearance 92 mL/min (70-130); Calcium 7.9 mg/dL (7.8-10.44); Carbon Dioxide 21 mmol/L (22-29); Chloride 103 mmol/L (98-107); Glucose 231 mg/dL (70-105); Potassium 3.7 mmol/L (3.5-5.1); Sodium 132 mmol/L (136-145)
[2020-10-14] MEDS: Insulin Regular 300 UNITS/3 ML VIAL SC PRN ×3 (06:06→23:54)
[2020-10-14] MEDS: Ferrous Sulfate 325 MG TAB PO SCH (08:35)
[2020-10-14] MEDS: Pancrelipase DR 12,000 1 CAP PO SCH ×3 (08:35→20:48)
[2020-10-14] MEDS: Lantus 1000 UNITS/10 ML VIAL SC SCH ×2 (08:55→20:48)
[2020-10-14] MEDS: NIFEdipine XL 30 MG TAB PO SCH (09:00)
[2020-10-14] MEDS ORDERED: Lantus 1000 UNITS/10 ML VIAL SC SCH (09:00)
[2020-10-14] MEDS: Acyclovir 400 mg Tablet PO SCH ×3 (09:00→20:47)
[2020-10-14 12:26] LABS: Iron 16 ug/dL (50-170); Iron Binding Capacity, Total 340 mcg/dL (265-497)
[2020-10-14] MEDS ORDERED: Chlorhexidine Gluconate 15 ML UDCUP SSP ONE (13:57)
[2020-10-14] MEDS ORDERED: Hydrocortisone 1% Cream 30 GM TUBE ONE (13:57)
[2020-10-14] MEDS ORDERED: Lidocaine 1% w/Epinephrine 1:100K 20 ML VIAL ONE (13:57)
[2020-10-14] MEDS ORDERED: Fentanyl 100 MCG/2 ML VIAL ONE ×2 (13:59→15:24)
[2020-10-14] MEDS ORDERED: Phenylephrine 1% Nasal Spray 15 ML BOT ONE (14:32)
[2020-10-14] MEDS ORDERED: SUGAMMADEX SODIUM 500 MG/5 ML VIAL ONE (14:32)
[2020-10-14] MEDS ORDERED: Lidocaine 2% Jelly 5 ML TUBE ONE (14:32)
[2020-10-14] MEDS ORDERED: Ondansetron PF 4 MG/2 ML Vial ONE (14:39)
[2020-10-14] MEDS ORDERED: Lidocaine 1% PF 5 ML VIAL ONE (14:39)
[2020-10-14] MEDS ORDERED: PHENYLEPHRINE-NS 100 MCG/ML 10 ML SYRINGE ONE (14:39)
[2020-10-14] MEDS ORDERED: PROPOFOL 200 MG/20 ML VIAL ONE (14:39)
[2020-10-14] MEDS ORDERED: Dexamethasone 20 MG/5 ML VIAL ONE (14:39)
[2020-10-14] MEDS ORDERED: Glycopyrrolate 0.2 MG/ML 5 ML SYRINGE ONE (14:39)
[2020-10-14] MEDS ORDERED: Rocuronium Bromide 10 MG/ML (10ML VIAL) ONE (14:39)
[2020-10-14] MEDS ORDERED: Sodium Chloride 0.9% 10 ML ONE (15:26)
[2020-10-14 15:37] LABS: %CD4 (Helper/Inducer) 16.5 % (30.8-58.5); Absolute CD4 165 /uL (359-1519); Total Lymphocyte 10 % (Not Estab.); WBC Total Count 9.7 x10E3/uL (3.4-10.8)
[2020-10-14] MEDS ORDERED: HYDROmorphone 2 MG/ML VIAL SLOW IVP PRN (16:13)
[2020-10-14] MEDS ORDERED: Ketorolac Tromethamine 30 MG/ML VIAL IVP PRN (16:13)
[2020-10-14] MEDS ORDERED: Ondansetron HCl/PF 4 MG/2 ML Vial IVP PRN (16:13)
[2020-10-14] MEDS ORDERED: Promethazine HCl 25 MG/ML VIAL IM PRN (16:13)
[2020-10-14] MEDS: cefTRIAXone\\ROCEPHIN 2 GM in Sodium Chloride 0.9% 100 ML IVPB SCH (17:51)
[2020-10-14] MEDS: Enoxaparin Sodium 40 MG/0.4 ML SYRINGE SC SCH (20:48)
[2020-10-14] MEDS: Chlorhexidine Gluconate 15 ML UDCUP SSP SCH (20:48)
[2020-10-14 23:48] LABS: Glucose 725 mg/dL (70-105)
[2020-10-15] MEDS: Ondansetron ODT 4 MG TAB PO PRN (00:25)
[2020-10-15] MEDS ORDERED: Ketorolac Tromethamine 30 MG/ML VIAL IVP SCH (00:30)
[2020-10-15] MEDS ORDERED: hydrALAZINE 20 MG/ML VIAL SLOW IVP PRN (01:52)
[2020-10-15] MEDS: Insulin Regular 300 UNITS/3 ML VIAL SC PRN ×2 (04:10→06:10)
[2020-10-15] MEDS: metroNIDAZOLE 500 MG in Premix Bag 1 BAG IVPB SCH ×3 (06:05→22:15)
[2020-10-15] MEDS ORDERED: Ibuprofen 800 MG TAB PO SCH (06:15)
[2020-10-15] MEDS: metFORMIN 500 MG TAB PO SCH ×2 (06:23→15:46)
[2020-10-15 07:28] LABS: #Lymphocytes 2.4 thou/uL (1.20-3.40); #Monocytes 0.7 thou/uL (0.11-0.59); #Neutrophils 3.3 thou/uL (1.40-6.50); %Basophils 0.1 % (0.0-1.0); %Eosinophils 0.5 % (0.0-10.0); %Lymphocytes 37.8 % (21.0-51.0); %Monocytes 10.2 % (0.0-10.0); %Neutrophils 51.2 % (42.0-75.0); Hemoglobin 7.6 g/dL (12.0-16.0); Mean Corpuscular Hemoglobin 22.6 pg (27.0-31.0); Mean Corpuscular Volume 75.3 fL (78.0-98.0); Mean Platelet Volume 8.7 fL (7.4-10.4); Platelet Count 300 thou/uL (130-400); RBC Distribution Width 15.8 % (11.5-14.5); Red Blood Cell (RBC) Count 3.34 mill/uL (4.20-5.40); White Blood Cell (WBC) Count 6.5 thou/uL (4.8-10.8)
[2020-10-15 07:29] LABS: Anion Gap 14 mmol/L (10-20); BUN (Urea Nitrogen) 6 mg/dL (7.0-18.7); Calc. Creatinine Clearance 93 mL/min (70-130); Calcium 7.9 mg/dL (7.8-10.44); Carbon Dioxide 19 mmol/L (22-29); Chloride 101 mmol/L (98-107); Glucose 244 mg/dL (70-105); Potassium 3.8 mmol/L (3.5-5.1); Sodium 130 mmol/L (136-145)
[2020-10-15 08:23] LABS: Hypochromia SLIGHT = 6-15 cells (100X) (0-5/hpf); MDiff Complete? YES; Microcytosis SLIGHT = 6-15 cells (100X) (0-5/hpf); Platelet Morphology Comment Appears Adequate; Polychromasia SLIGHT = 2-3 cells (100X) (0-2/hpf)
[2020-10-15] MEDS: Pancrelipase DR 12,000 1 CAP PO SCH ×3 (08:58→20:17)
[2020-10-15] MEDS: Chlorhexidine Gluconate 15 ML UDCUP SSP SCH ×2 (08:59→20:17)
[2020-10-15] MEDS: Ferrous Sulfate 325 MG TAB PO SCH (08:59)
[2020-10-15] MEDS: Acyclovir 400 mg Tablet PO SCH ×3 (08:59→20:25)
[2020-10-15] MEDS: NIFEdipine XL 30 MG TAB PO SCH (08:59)
[2020-10-15] MEDS: Lantus 1000 UNITS/10 ML VIAL SC SCH ×2 (09:00→22:15)
[2020-10-15] MEDS ORDERED: Iron, Sodium Ferric Gluconate 250 MG in Sodium Chloride 0.9% 250 ML 250 ML IVPB SCH (10:30)
[2020-10-15] MEDS ORDERED: Sulfameth/Trimethoprim DS 800-160mg TAB PO SCH (11:15)
[2020-10-15] MEDS: cefTRIAXone\\ROCEPHIN 2 GM in Sodium Chloride 0.9% 100 ML IVPB SCH (15:47)
[2020-10-15] MEDS ORDERED: Emtricitabine/Tenofovir 200-300 MG TAB PO SCH (18:00)
[2020-10-15] MEDS: Raltegravir Potassium 400 MG TAB PO SCH (20:16)
[2020-10-15] MEDS: Enoxaparin Sodium 40 MG/0.4 ML SYRINGE SC SCH (20:17)
[2020-10-15] MEDS: Ibuprofen 600 MG TAB PO PRN (20:35)
[2020-10-16] MEDS: Insulin Regular 300 UNITS/3 ML VIAL SC PRN ×3 (00:40→14:32)
[2020-10-16] MEDS: metroNIDAZOLE 500 MG in Premix Bag 1 BAG IVPB SCH ×3 (06:30→22:00)
[2020-10-16] MEDS: metFORMIN 500 MG TAB PO SCH ×4 (06:30→16:34)
[2020-10-16 07:58] LABS: Anion Gap 12 mmol/L (10-20); BUN (Urea Nitrogen) Less than 4 mg/dL (7.0-18.7); Calc. Creatinine Clearance 113 mL/min (70-130); Calcium 8.5 mg/dL (7.8-10.44); Carbon Dioxide 23 mmol/L (22-29); Chloride 105 mmol/L (98-107); Glucose 62 mg/dL (70-105); Potassium 3.8 mmol/L (3.5-5.1); Sodium 136 mmol/L (136-145)
[2020-10-16] MEDS: NIFEdipine XL 30 MG TAB PO SCH (08:08)
[2020-10-16] MEDS: Raltegravir Potassium 400 MG TAB PO SCH ×2 (08:08→21:41)
[2020-10-16] MEDS: Acyclovir 400 mg Tablet PO SCH ×3 (08:08→21:44)
[2020-10-16] MEDS: Emtricitabine/Tenofovir 200-300 MG TAB PO SCH (08:08)
[2020-10-16] MEDS: Pancrelipase DR 12,000 1 CAP PO SCH ×3 (08:08→21:40)
[2020-10-16] MEDS: Ferrous Sulfate 325 MG TAB PO SCH (08:08)
[2020-10-16] MEDS: Chlorhexidine Gluconate 15 ML UDCUP SSP SCH ×2 (08:09→21:40)
[2020-10-16 08:22] LABS: #Basophils 0.1 thou/uL (0.0-0.2); #Eosinphils 0.1 thou/uL (0.0-0.7); #Lymphocytes 2.3 thou/uL (1.20-3.40); #Monocytes 0.6 thou/uL (0.11-0.59); #Neutrophils 4.5 thou/uL (1.40-6.50); %Basophils 1.3 % (0.0-1.0); %Eosinophils 0.9 % (0.0-10.0); %Lymphocytes 29.4 % (21.0-51.0); %Monocytes 6.8 % (0.0-10.0); %Neutrophils 61.5 % (42.0-75.0); Hemoglobin 9.1 g/dL (12.0-16.0); Hypochromia SLIGHT = 6-15 cells (100X) (0-5/hpf); MDiff Complete? YES; Mean Corpuscular HGB CONC 29.2 g/dL (32.0-36.0); Mean Corpuscular Hemoglobin 22.1 pg (27.0-31.0); Mean Corpuscular Volume 75.8 fL (78.0-98.0); Mean Platelet Volume 8.3 fL (7.4-10.4); Microcytosis SLIGHT = 6-15 cells (100X) (0-5/hpf); Platelet Count 390 thou/uL (130-400); Platelet Morphology Comment Appears Adequate; RBC Distribution Width 15.9 % (11.5-14.5); Red Blood Cell (RBC) Count 4.12 mill/uL (4.20-5.40); White Blood Cell (WBC) Count 7.4 thou/uL (4.8-10.8)
[2020-10-16] MEDS ORDERED: Lantus 1000 UNITS/10 ML VIAL SC SCH ×2 (09:00→21:00)
[2020-10-16] MEDS ORDERED: Sulfameth/Trimethoprim DS 800-160mg TAB PO SCH (09:00)
[2020-10-16] MEDS: Lantus 1000 UNITS/10 ML VIAL SC SCH (10:57)
[2020-10-16] MEDS: cefTRIAXone\\ROCEPHIN 2 GM in Sodium Chloride 0.9% 100 ML IVPB SCH (16:35)
[2020-10-16] MEDS: Ondansetron ODT 4 MG TAB PO PRN (17:31)
[2020-10-16] MEDS: Enoxaparin Sodium 40 MG/0.4 ML SYRINGE SC SCH (21:40)
[2020-10-17 05:32] LABS: #Basophils 0.1 thou/uL (0.0-0.2); #Eosinphils 0.1 thou/uL (0.0-0.7); #Monocytes 0.9 thou/uL (0.11-0.59); #Neutrophils 7.7 thou/uL (1.40-6.50); %Basophils 0.7 % (0.0-1.0); %Eosinophils 0.9 % (0.0-10.0); %Lymphocytes 25.5 % (21.0-51.0); %Monocytes 7.4 % (0.0-10.0); %Neutrophils 65.5 % (42.0-75.0); Mean Corpuscular Hemoglobin 22.6 pg (27.0-31.0); Mean Corpuscular Volume 75.5 fL (78.0-98.0); Mean Platelet Volume 7.9 fL (7.4-10.4); Platelet Count 404 thou/uL (130-400); Red Blood Cell (RBC) Count 3.55 mill/uL (4.20-5.40); White Blood Cell (WBC) Count 11.8 thou/uL (4.8-10.8)
[2020-10-17 05:55] LABS: Anion Gap 8 mmol/L (10-20); BUN (Urea Nitrogen) 4 mg/dL (7.0-18.7); Calc. Creatinine Clearance 123 mL/min (70-130); Carbon Dioxide 28 mmol/L (22-29); Chloride 103 mmol/L (98-107); Glucose 64 mg/dL (70-105); Potassium 3.4 mmol/L (3.5-5.1); Sodium 136 mmol/L (136-145)
[2020-10-17] MEDS: metroNIDAZOLE 500 MG in Premix Bag 1 BAG IVPB SCH ×3 (06:12→22:13)
[2020-10-17] MEDS ORDERED: Potassium Chloride 20 MEQ TAB PO SCH (06:15)
[2020-10-17] MEDS: Dextrose 50% Abboject 50 ML SYRINGE SLOW IVP PRN (06:29)
[2020-10-17] MEDS: metFORMIN 500 MG TAB PO SCH ×2 (08:41→17:22)
[2020-10-17] MEDS: Acyclovir 400 mg Tablet PO SCH ×3 (08:43→22:13)
[2020-10-17] MEDS: Chlorhexidine Gluconate 15 ML UDCUP SSP SCH ×2 (08:43→22:13)
[2020-10-17] MEDS: Emtricitabine/Tenofovir 200-300 MG TAB PO SCH (08:43)
[2020-10-17] MEDS: Raltegravir Potassium 400 MG TAB PO SCH ×2 (08:43→22:13)
[2020-10-17] MEDS: Pancrelipase DR 12,000 1 CAP PO SCH ×3 (08:43→22:13)
[2020-10-17] MEDS: Ferrous Sulfate 325 MG TAB PO SCH (08:43)
[2020-10-17] MEDS: NIFEdipine XL 30 MG TAB PO SCH (08:43)
[2020-10-17] MEDS: Sulfameth/Trimethoprim DS 800-160mg TAB PO SCH (08:44)
[2020-10-17] MEDS ORDERED: Lantus 1000 UNITS/10 ML VIAL SC SCH ×2 (09:00→21:00)
[2020-10-17] MEDS: cefTRIAXone\\ROCEPHIN 2 GM in Sodium Chloride 0.9% 100 ML IVPB SCH (17:22)
[2020-10-17] MEDS: Enoxaparin Sodium 40 MG/0.4 ML SYRINGE SC SCH (22:13)
[2020-10-17] MEDS: Insulin Regular 300 UNITS/3 ML VIAL SC PRN (22:14)
[2020-10-18] MEDS: Dextrose 50% Abboject 50 ML SYRINGE SLOW IVP PRN ×2 (02:15→04:10)
[2020-10-18] MEDS: metroNIDAZOLE 500 MG in Premix Bag 1 BAG IVPB SCH ×3 (06:00→22:02)
[2020-10-18] MEDS: metFORMIN 500 MG TAB PO SCH ×2 (07:35→16:20)
[2020-10-18 07:40] LABS: Hemoglobin 7.9 g/dL (12.0-16.0); Mean Corpuscular HGB CONC 29.7 g/dL (32.0-36.0); Mean Corpuscular Hemoglobin 22.4 pg (27.0-31.0); Mean Corpuscular Volume 75.5 fL (78.0-98.0); Mean Platelet Volume 7.9 fL (7.4-10.4); Platelet Count 401 thou/uL (130-400); RBC Distribution Width 16.2 % (11.5-14.5); Red Blood Cell (RBC) Count 3.53 mill/uL (4.20-5.40); White Blood Cell (WBC) Count 11.3 thou/uL (4.8-10.8)
[2020-10-18 07:41] LABS: #Eosinphils 0.1 thou/uL (0.0-0.7); #Lymphocytes 2.9 thou/uL (1.20-3.40); #Monocytes 0.6 thou/uL (0.11-0.59); #Neutrophils 7.7 thou/uL (1.40-6.50); %Basophils 0.4 % (0.0-1.0); %Eosinophils 0.9 % (0.0-10.0); %Lymphocytes 25.2 % (21.0-51.0); %Monocytes 5.4 % (0.0-10.0); %Neutrophils 68.2 % (42.0-75.0)
[2020-10-18 07:50] LABS: Anion Gap 10 mmol/L (10-20); BUN (Urea Nitrogen) Less than 4 mg/dL (7.0-18.7); Calc. Creatinine Clearance 133 mL/min (70-130); Calcium 7.9 mg/dL (7.8-10.44); Carbon Dioxide 23 mmol/L (22-29); Chloride 106 mmol/L (98-107); Potassium 4.1 mmol/L (3.5-5.1); Sodium 135 mmol/L (136-145)
[2020-10-18 07:52] LABS: Glucose 58 mg/dL (70-105)
[2020-10-18 08:07] LABS: Hypochromia SLIGHT = 6-15 cells (100X) (0-5/hpf); MDiff Complete? YES; Microcytosis SLIGHT = 6-15 cells (100X) (0-5/hpf); Platelet Morphology Comment Appears Adequate; Polychromasia MODERATE = 3-4 cells (100X) (0-2/hpf)
[2020-10-18] MEDS: Acyclovir 400 mg Tablet PO SCH ×3 (08:20→22:03)
[2020-10-18] MEDS: NIFEdipine XL 30 MG TAB PO SCH (08:20)
[2020-10-18] MEDS: Chlorhexidine Gluconate 15 ML UDCUP SSP SCH ×2 (08:20→22:03)
[2020-10-18] MEDS: Raltegravir Potassium 400 MG TAB PO SCH ×2 (08:20→22:02)
[2020-10-18] MEDS: Emtricitabine/Tenofovir 200-300 MG TAB PO SCH (08:20)
[2020-10-18] MEDS: Ferrous Sulfate 325 MG TAB PO SCH (08:20)
[2020-10-18] MEDS: Pancrelipase DR 12,000 1 CAP PO SCH ×3 (08:20→22:03)
[2020-10-18] MEDS: Lantus 1000 UNITS/10 ML VIAL SC SCH (08:21)
[2020-10-18] MEDS: Ondansetron ODT 4 MG TAB PO PRN (14:56)
[2020-10-18] MEDS: cefTRIAXone\\ROCEPHIN 2 GM in Sodium Chloride 0.9% 100 ML IVPB SCH (16:20)
[2020-10-18] MEDS ORDERED: Lantus 1000 UNITS/10 ML VIAL SC SCH (21:00)
[2020-10-18] MEDS: Enoxaparin Sodium 40 MG/0.4 ML SYRINGE SC SCH (22:02)
[2020-10-19] MEDS: metroNIDAZOLE 500 MG in Premix Bag 1 BAG IVPB SCH ×3 (05:25→21:24)
[2020-10-19 05:41] LABS: #Basophils 0.1 thou/uL (0.0-0.2); #Eosinphils 0.1 thou/uL (0.0-0.7); #Monocytes 0.5 thou/uL (0.11-0.59); #Neutrophils 4.6 thou/uL (1.40-6.50); %Basophils 1.1 % (0.0-1.0); %Lymphocytes 27.6 % (21.0-51.0); %Monocytes 6.5 % (0.0-10.0); %Neutrophils 63.9 % (42.0-75.0); Hemoglobin 7.8 g/dL (12.0-16.0); Mean Corpuscular HGB CONC 28.7 g/dL (32.0-36.0); Mean Corpuscular Volume 76.7 fL (78.0-98.0); Mean Platelet Volume 7.7 fL (7.4-10.4); Platelet Count 405 thou/uL (130-400); RBC Distribution Width 16.5 % (11.5-14.5); Red Blood Cell (RBC) Count 3.54 mill/uL (4.20-5.40); White Blood Cell (WBC) Count 7.2 thou/uL (4.8-10.8)
[2020-10-19 05:59] LABS: Anion Gap 13 mmol/L (10-20); BUN (Urea Nitrogen) 6 mg/dL (7.0-18.7); Calc. Creatinine Clearance 115 mL/min (70-130); Carbon Dioxide 22 mmol/L (22-29); Chloride 102 mmol/L (98-107); Glucose 167 mg/dL (70-105); Potassium 4.9 mmol/L (3.5-5.1); Sodium 132 mmol/L (136-145)
[2020-10-19] MEDS ORDERED: Lantus 1000 UNITS/10 ML VIAL SC SCH (09:45)
[2020-10-19] MEDS: Chlorhexidine Gluconate 15 ML UDCUP SSP SCH ×2 (09:56→21:23)
[2020-10-19] MEDS: NIFEdipine XL 30 MG TAB PO SCH (09:56)
[2020-10-19] MEDS: Acyclovir 400 mg Tablet PO SCH ×3 (09:56→21:23)
[2020-10-19] MEDS: Raltegravir Potassium 400 MG TAB PO SCH ×2 (09:57→21:23)
[2020-10-19] MEDS: Pancrelipase DR 12,000 1 CAP PO SCH ×3 (09:57→21:23)
[2020-10-19] MEDS: Emtricitabine/Tenofovir 200-300 MG TAB PO SCH (09:57)
[2020-10-19] MEDS: Sulfameth/Trimethoprim DS 800-160mg TAB PO SCH (09:57)
[2020-10-19] MEDS: metFORMIN 500 MG TAB PO SCH ×2 (09:57→17:28)
[2020-10-19] MEDS: Ferrous Sulfate 325 MG TAB PO SCH (09:57)
[2020-10-19] MEDS: Lactinex Tablet PO SCH (10:00)
[2020-10-19] MEDS: Lantus 1000 UNITS/10 ML VIAL SC SCH (10:59)
[2020-10-19] MEDS: cefTRIAXone\\ROCEPHIN 2 GM in Sodium Chloride 0.9% 100 ML IVPB SCH (17:28)
[2020-10-19] MEDS: Enoxaparin Sodium 40 MG/0.4 ML SYRINGE SC SCH (21:24)
[2020-10-19] MEDS: Ibuprofen 600 MG TAB PO PRN (22:16)
[2020-10-20 05:36] LABS: #Eosinphils 0.1 thou/uL (0.0-0.7); #Lymphocytes 2.6 thou/uL (1.20-3.40); #Monocytes 0.4 thou/uL (0.11-0.59); #Neutrophils 2.5 thou/uL (1.40-6.50); %Basophils 0.7 % (0.0-1.0); %Eosinophils 1.1 % (0.0-10.0); %Lymphocytes 46.2 % (21.0-51.0); %Monocytes 7.4 % (0.0-10.0); %Neutrophils 44.6 % (42.0-75.0); Mean Corpuscular HGB CONC 28.5 g/dL (32.0-36.0); Mean Corpuscular Volume 77.2 fL (78.0-98.0); Mean Platelet Volume 8.3 fL (7.4-10.4); Platelet Count 377 thou/uL (130-400); RBC Distribution Width 17.8 % (11.5-14.5); Red Blood Cell (RBC) Count 3.62 mill/uL (4.20-5.40); White Blood Cell (WBC) Count 5.7 thou/uL (4.8-10.8)
[2020-10-20 05:51] LABS: Anion Gap 11 mmol/L (10-20); BUN (Urea Nitrogen) 6 mg/dL (7.0-18.7); Calc. Creatinine Clearance 110 mL/min (70-130); Calcium 8.1 mg/dL (7.8-10.44); Carbon Dioxide 22 mmol/L (22-29); Chloride 105 mmol/L (98-107); Glucose 156 mg/dL (70-105); Potassium 5.2 mmol/L (3.5-5.1); Sodium 133 mmol/L (136-145)
[2020-10-20] MEDS: metroNIDAZOLE 500 MG in Premix Bag 1 BAG IVPB SCH ×2 (06:06→15:49)
[2020-10-20] MEDS: metFORMIN 500 MG TAB PO SCH ×2 (06:45→17:24)
[2020-10-20] MEDS ORDERED: NIFEdipine XL 60 MG TAB PO SCH (08:20)
[2020-10-20] MEDS: Chlorhexidine Gluconate 15 ML UDCUP SSP SCH (08:44)
[2020-10-20] MEDS: Ferrous Sulfate 325 MG TAB PO SCH (08:45)
[2020-10-20] MEDS: Lactinex Tablet PO SCH (08:45)
[2020-10-20] MEDS: Emtricitabine/Tenofovir 200-300 MG TAB PO SCH (08:45)
[2020-10-20] MEDS: Acyclovir 400 mg Tablet PO SCH ×2 (08:45→15:50)
[2020-10-20] MEDS: Pancrelipase DR 12,000 1 CAP PO SCH ×2 (08:46→15:50)
[2020-10-20] MEDS: Raltegravir Potassium 400 MG TAB PO SCH (08:46)
[2020-10-20] MEDS ORDERED: Lantus 1000 UNITS/10 ML VIAL SC SCH ×2 (09:00)
[2020-10-20] MEDS: Insulin Regular 300 UNITS/3 ML VIAL SC PRN (12:27)
[2020-10-20 15:37] VITALS: BP 149/91; TEMP 98.5
[2020-10-20] MEDS: cefTRIAXone\\ROCEPHIN 2 GM in Sodium Chloride 0.9% 100 ML IVPB SCH (17:25)
== END 2020-10-20 17:25 | DRG 854 ==
LOC: ERS 20:28 → ERHOLD 10-13 00:12 → SURG A 10-13 03:51
PROVIDERS: ADMIT Family Medicine; ATTEND Family Medicine
PROC: 05HY33Z Insertion of Infusion Device into Upper Vein, Percutaneous Approach (ICD-10-PCS; 2020-10-13)
PROC: 0NPW04Z Removal of Internal Fixation Device from Facial Bone, Open Approach (ICD-10-PCS; principal; 2020-10-14)
PROC: 02HV33Z Insertion of Infusion Device into Superior Vena Cava, Percutaneous Approach (ICD-10-PCS; 2020-10-17)
PROC: B518ZZA Fluoroscopy of Superior Vena Cava, Guidance (ICD-10-PCS; 2020-10-17)
PROC: B548ZZA Ultrasonography of Superior Vena Cava, Guidance (ICD-10-PCS; 2020-10-17)
PROC: 8E0ZXY6 Isolation (ICD-10-PCS; 2020-10-18)
DX: A40.8 Other streptococcal sepsis (principal); T84.228A Displacement of internal fixation device of other bones, initial encounter; N17.9 Acute kidney failure, unspecified; K12.2 Cellulitis and abscess of mouth; S02.652K Fracture of angle of left mandible, subsequent encounter for fracture with nonunion; E87.1 Hypo-osmolality and hyponatremia; B20 Human immunodeficiency virus [HIV] disease; Z20.822 Contact with and (suspected) exposure to COVID-19; Z66 Do not resuscitate; Y83.1 Surgical operation with implant of artificial internal device as the cause of abnormal reaction of the patient, or of later complication, without mention of misadventure at the time of the procedure; E11.69 Type 2 diabetes mellitus with other specified complication; M27.2 Inflammatory conditions of jaws; F17.210 Nicotine dependence, cigarettes, uncomplicated; F12.10 Cannabis abuse, uncomplicated; E11.65 Type 2 diabetes mellitus with hyperglycemia; I10 Essential (primary) hypertension; D50.9 Iron deficiency anemia, unspecified; E86.0 Dehydration; F41.1 Generalized anxiety disorder; K21.9 Gastro-esophageal reflux disease without esophagitis; F32.9 Major depressive disorder, single episode, unspecified; E78.5 Hyperlipidemia, unspecified; D63.8 Anemia in other chronic diseases classified elsewhere; R19.7 Diarrhea, unspecified; E87.6 Hypokalemia; Z91.19 Patient's noncompliance with other medical treatment and regimen; Z88.6 Allergy status to analgesic agent; Z88.5 Allergy status to narcotic agent; Z88.8 Allergy status to other drugs, medicaments and biological substances; Z79.899 Other long term (current) drug therapy; Z79.4 Long term (current) use of insulin; Z79.1 Long term (current) use of non-steroidal anti-inflammatories (NSAID); Z98.51 Tubal ligation status; Z90.721 Acquired absence of ovaries, unilateral; Z86.718 Personal history of other venous thrombosis and embolism; Z86.19 Personal history of other infectious and parasitic diseases; Z90.49 Acquired absence of other specified parts of digestive tract; Z91.5 Personal history of self-harm; Z91.14 Patient's other noncompliance with medication regimen; Z91.11 Patient's noncompliance with dietary regimen
CPT/HCPCS: 36415; 36416; 36569; 70486; 70487; 76377; 80048; 80053; 82728; 82805; 83540; 83550; 83605; 84703; 85025; 85048; 86361; 87040; 87070; 87076; 87077; 87205; 87324; 87449; 87635; 96365; 96367; 96375; C1751; J0696; J1100; J1610; J1644; J1650; J1815; J1885; J2405; J2704; J2916; J3010; J3370; J3480; J3490; J7050; J7120; Q0162; Q9967; U0003; U0005

== ENCOUNTER 2021-03-20 16:14 | Observation (INO) | payer OTHER ==
[2021-03-20 17:11] LABS: #Basophils 0.1 thou/uL (0.0-0.2); #Lymphocytes 1.7 thou/uL (1.20-3.40); #Monocytes 0.4 thou/uL (0.11-0.59); #Neutrophils 2.7 thou/uL (1.40-6.50); %Basophils 1.7 % (0.0-1.0); %Eosinophils 0.7 % (0.0-10.0); %Lymphocytes 34.9 % (21.0-51.0); %Monocytes 7.5 % (0.0-10.0); %Neutrophils 55.3 % (42.0-75.0); Hemoglobin 12.8 g/dL (12.0-16.0); Mean Corpuscular HGB CONC 32.5 g/dL (32.0-36.0); Mean Corpuscular Hemoglobin 31.6 pg (27.0-31.0); Mean Corpuscular Volume 97.3 fL (78.0-98.0); Platelet Count 367 thou/uL (130-400); RBC Distribution Width 13.4 % (11.5-14.5); Red Blood Cell (RBC) Count 4.04 mill/uL (4.20-5.40); White Blood Cell (WBC) Count 4.8 thou/uL (4.8-10.8)
[2021-03-20 17:12] LABS: Actual Bicarbonate (HCO3v) 22 mEq/L (22-28); Analyzer IN Cardio ER; Base Excess -4.1 mEq/L (-2.0 to +3.0); Calcium, Ionized (venous) 1.03 mmol/L (1.16-1.32); Chloride (VBG) 86 mmol/L (98-106); Hemoglobin (Hb) 13.4 g/dL (11.7-15.5); Potassium (VBG) 4.71 mmol/L (3.70-5.30); Sodium 121.4 mmol/L (133-146); pH (venous) 7.32 (7.32-7.43)
[2021-03-20 17:42] LABS: ALT (SGPT) 39 U/L (8-55); AST (SGOT) 42 U/L (5-34); Albumin 3.7 g/dL (3.5-5.0); Alkaline Phosphatase 138 U/L (40-110); Anion Gap 19 mmol/L (10-20); BUN (Urea Nitrogen) 12 mg/dL (7.0-18.7); Bilirubin, Total 0.3 mg/dL (0.2-1.2); Calc. Creatinine Clearance 0 mL/min (70-130); Calcium 8.8 mg/dL (7.8-10.44); Carbon Dioxide 20 mmol/L (22-29); Chloride 87 mmol/L (98-107); Potassium 5.1 mmol/L (3.5-5.1); Protein, Total 7.7 g/dL (6.0-8.3); Sodium 121 mmol/L (136-145)
[2021-03-20] MEDS ORDERED: Insulin Regular 300 UNITS/3 ML VIAL ONE (17:59)
[2021-03-20 18:07] LABS: Glucose 892 mg/dL (70-105)
[2021-03-20] MEDS ORDERED: INSULIN REGULAR IN 0.9 % NACL 100 UNIT/100 ML BAG ONE (19:05)
[2021-03-20 19:43] LABS: Anion Gap 14 mmol/L (10-20); BUN (Urea Nitrogen) 10 mg/dL (7.0-18.7); Calc. Creatinine Clearance 0 mL/min (70-130); Calcium 8.2 mg/dL (7.8-10.44); Carbon Dioxide 21 mmol/L (22-29); Chloride 98 mmol/L (98-107); Glucose 475 mg/dL (70-105); Potassium 3.7 mmol/L (3.5-5.1); Sodium 129 mmol/L (136-145)
[2021-03-20 20:05] LABS: Bilirubin Negative (Negative); Blood, Urine Negative (Negative); Clarity Clear (Clear); Glucose, Urine (Dipstick) Greater than 1000 mg/dL (Negative); Ketone, Urine Negative (Negative); Leukocyte Negative Leu/uL (Negative); Nitrite Negative (Negative); Protein, Urine (Dipstick) Negative (Neg-Trace); Specific Gravity, Urine 1.019 (1.002-1.036); Urobilinogen Normal mg/dL (Less than 2); pH, Urine 6.5 (5.0-9.0)
[2021-03-20] MEDS ORDERED: Dextrose 50% Abboject 50 ML SYRINGE SLOW IVP PRN (20:20)
[2021-03-20] MEDS ORDERED: ADD ELECTROLYTE REPLACEMENT SET TO PROFILE FS SCH (20:30)
[2021-03-20] MEDS ORDERED: Dextrose 5 %-0.45 % NaCl 1,000 ML IV PRN (20:30)
[2021-03-20] MEDS ORDERED: HUMULIN R 100 UNITS in Sodium Chloride 0.9% 100 ML IVPB SCH (20:30)
[2021-03-20] MEDS ORDERED: D5 1/2 NS w/20 mEq KCL 1,000 ML IV PRN (20:30)
[2021-03-20] MEDS ORDERED: Insulin Regular 300 UNITS/3 ML VIAL IVP SCH (20:30)
[2021-03-20] MEDS ORDERED: Sodium Chloride 0.9% 1,000 ML IV PRN ×4 (20:30)
[2021-03-20] MEDS ORDERED: Dextrose 5% in Water 1,000 ML IV PRN (20:30)
[2021-03-20] MEDS ORDERED: NS 0.9% w/ 20 MEQ KCL 1,000 ML/1,000 ML BAG IV PRN ×2 (20:30)
[2021-03-20] MEDS ORDERED: Sodium Chloride 0.9% 1,000 ML IV SCH (21:00)
[2021-03-20] MEDS ORDERED: Electrolyte Replacement Protocol FS PRN (21:00)
[2021-03-20] MEDS ORDERED: D5 1/2 NS w/20 mEq KCL 1,000 ML ONE (21:36)
[2021-03-20] MEDS ORDERED: Ondansetron PF 4 MG/2 ML Vial IVP SCH (21:45)
[2021-03-20] MEDS ORDERED: Ondansetron PF 4 MG/2 ML Vial ONE (22:02)
[2021-03-20 22:52] LABS: Anion Gap 14 mmol/L (10-20); BUN (Urea Nitrogen) 8 mg/dL (7.0-18.7); Calc. Creatinine Clearance 0 mL/min (70-130); Calcium 8.1 mg/dL (7.8-10.44); Carbon Dioxide 21 mmol/L (22-29); Chloride 104 mmol/L (98-107); Glucose 107 mg/dL (70-105); Potassium 3.9 mmol/L (3.5-5.1); Sodium 135 mmol/L (136-145)
[2021-03-20] MEDS ORDERED: HumaLOG 300 UNITS/3 ML VIAL SC SCH (23:15)
[2021-03-20] MEDS ORDERED: Lantus 1000 UNITS/10 ML VIAL SC SCH (23:30)
[2021-03-20] MEDS ORDERED: HumaLOG 300 UNITS/3 ML VIAL ONE (23:47)
[2021-03-21 00:22] LABS: Cardiac Risk 2.5 (Less than 4.5)
[2021-03-21 02:47] LABS: Calcium 8.2 mg/dL (7.8-10.44); Chloride 104 mmol/L (98-107); Potassium 3.4 mmol/L (3.5-5.1); Sodium 132 mmol/L (136-145)
[2021-03-21 02:48] LABS: Glucose 107 mg/dL (70-105)
[2021-03-21 02:49] LABS: Carbon Dioxide 17 mmol/L (22-29)
[2021-03-21 02:51] LABS: Calc. Creatinine Clearance 0 mL/min (70-130)
[2021-03-21 02:52] LABS: BUN (Urea Nitrogen) 8 mg/dL (7.0-18.7)
[2021-03-21 03:16] VITALS: BMI 25.9
[2021-03-21] MEDS ORDERED: Potassium Chloride 20 MEQ TAB PO SCH (04:00)
[2021-03-21 05:56] LABS: Anion Gap 14 mmol/L (10-20)
[2021-03-21] MEDS ORDERED: Ondansetron PF 4 MG/2 ML Vial IVP PRN (07:59)
[2021-03-21] MEDS ORDERED: Enoxaparin Sodium 40 MG/0.4 ML SYRINGE SC SCH (09:00)
[2021-03-21] MEDS ORDERED: Acyclovir 400 mg Tablet PO SCH (09:00)
[2021-03-21] MEDS ORDERED: Lantus 1000 UNITS/10 ML VIAL SC SCH ×2 (09:00→21:00)
[2021-03-21] MEDS ORDERED: NIFEdipine XL 30 MG TAB PO SCH (09:00)
[2021-03-21] MEDS ORDERED: Pancrelipase DR 12,000 1 CAP PO SCH (09:00)
[2021-03-21 10:43] LABS: ALT (SGPT) 26 U/L (8-55); AST (SGOT) 26 U/L (5-34); Albumin 3.1 g/dL (3.5-5.0); Alkaline Phosphatase 98 U/L (40-110); Anion Gap 9 mmol/L (10-20); BUN (Urea Nitrogen) 6 mg/dL (7.0-18.7); Bilirubin, Total 0.2 mg/dL (0.2-1.2); Calc. Creatinine Clearance 124 mL/min (70-130); Calcium 8.5 mg/dL (7.8-10.44); Carbon Dioxide 28 mmol/L (22-29); Chloride 102 mmol/L (98-107); Globulin 2.9 g/dL (2.4-3.5); Glucose 123 mg/dL (70-105); Potassium 4.3 mmol/L (3.5-5.1); Sodium 135 mmol/L (136-145)
[2021-03-21] MEDS: HumaLOG 300 UNITS/3 ML VIAL SC SCH ×2 (10:43→12:30)
[2021-03-21 16:11] VITALS: BP 136/90; TEMP 98
[2021-03-21] MEDS ORDERED: Bictegrav/Emtricit/Tenofov Ala [Biktarvy 50-200-25 Mg Tablet] PO SCH (21:00)
== END 2021-03-21 15:30 | disposition home or self-care (01) ==
LOC: ERS 16:14 → INTOOBSV 18:19 → ERHOLD 18:19 → T4-B 03-21 01:06
PROVIDERS: ADMIT Student in an Organized Health Care Education/Training Program; ATTEND Student in an Organized Health Care Education/Training Program
DX: E11.65 Type 2 diabetes mellitus with hyperglycemia (principal); N17.9 Acute kidney failure, unspecified; E78.5 Hyperlipidemia, unspecified; I10 Essential (primary) hypertension; B20 Human immunodeficiency virus [HIV] disease; F17.290 Nicotine dependence, other tobacco product, uncomplicated; F12.10 Cannabis abuse, uncomplicated; R74.8 Abnormal levels of other serum enzymes; Z66 Do not resuscitate; Z86.718 Personal history of other venous thrombosis and embolism; Z79.4 Long term (current) use of insulin; Z79.84 Long term (current) use of oral hypoglycemic drugs; Z79.899 Other long term (current) drug therapy; Z88.5 Allergy status to narcotic agent; Z88.6 Allergy status to analgesic agent; Z88.8 Allergy status to other drugs, medicaments and biological substances
CPT/HCPCS: 36415; 36416; 71045; 80048; 80053; 80061; 81003; 82010; 82805; 83930; 85025; 93005; 96372; 96374; 96375; G0378; J1650; J1815; J2405; J3480; J3490; J7050

== ENCOUNTER 2024-07-14 18:32 | Inpatient (IN) | payer OTHER ==
[2024-07-14 19:30] VITALS: BMI 27.8
[2024-07-14] MEDS ORDERED: Ondansetron ODT 4 MG TAB PO PRN (20:55)
[2024-07-14] MEDS ORDERED: Dextrose 50% Abboject 50 ML SYRINGE SLOW IVP PRN (20:55)
[2024-07-14] MEDS ORDERED: Calcium Carbonate 500 MG ChewTAB PO PRN (20:55)
[2024-07-14] MEDS ORDERED: Dextrose 5% in Water 1,000 ML IV PRN (20:55)
[2024-07-14] MEDS ORDERED: Glucagon 1 MG/ML KIT IM PRN (20:55)
[2024-07-14] MEDS ORDERED: Senokot S 8.6-50 MG TAB PO PRN (20:55)
[2024-07-14] MEDS ORDERED: Ondansetron PF 4 MG/2 ML Vial IVP PRN (20:55)
[2024-07-14] MEDS ORDERED: [UNRECOGNIZED DRUG - OTHER] PO SCH (21:00)
[2024-07-14] MEDS: Acyclovir 400 mg Tablet PO SCH (22:32)
[2024-07-14] MEDS: Sodium Chloride 0.9% 1,000 ML IV SCH (22:33)
[2024-07-14] MEDS: Melatonin 3 MG TAB PO PRN (23:38)
[2024-07-15] MEDS: Insulin Lispro 100 UNIT/ML 10 ML VIAL SC PRN ×2 (01:13→21:48)
[2024-07-15] MEDS: Heparin 10,000 UNITS/ 10 ML VIAL SLOW IVP SCH (02:50)
[2024-07-15] MEDS: Heparin 25,000 units/D5W 500 ML IVPB SCH (02:50)
[2024-07-15 05:41] LABS: #Basophils 0.04 10x3/uL (0.0-0.2); %Basophils 0.6 % (0.0-1.0); %Lymphocytes 23.5 % (21.0-51.0); %Monocytes 9.6 % (0.0-10.0); %Neutrophils 65.2 % (42.0-75.0); Hematocrit 24.3 % (36.0-47.0); Hemoglobin 6.9 g/dL (12.0-16.0); Mean Corpuscular HGB CONC 28.4 g/dL (32.0-36.0); Mean Corpuscular Hemoglobin 20.4 pg (27.0-31.0); Mean Corpuscular Volume 71.9 fL (78.0-98.0); Mean Platelet Volume 9.6 fL (7.4-10.4); Platelet Count 284 10x3/uL (130-400); RBC Distribution Width 16.9 % (11.5-14.5); Red Blood Cell (RBC) Count 3.38 mill/uL (4.20-5.40)
[2024-07-15 05:43] LABS: Calcium 8.2 mg/dL (7.8-10.44); Chloride 104 mmol/L (98-107); Potassium 3.3 mmol/L (3.5-5.1); Sodium 134 mmol/L (136-145)
[2024-07-15 05:44] LABS: Glucose 204 mg/dL (70-105)
[2024-07-15 05:45] LABS: Anion Gap 10 mmol/L (10-20); Carbon Dioxide 23 mmol/L (22-29)
[2024-07-15 05:47] LABS: Calc. Creatinine Clearance 100 mL/min (70-130); Estimated GFR 70
[2024-07-15 05:48] LABS: BUN (Urea Nitrogen) 14 mg/dL (7.0-18.7)
[2024-07-15 06:36] LABS: PTT 135.7 sec (22.9-36.1)
[2024-07-15] MEDS: Insulin Lispro 100 UNIT/ML 10 ML VIAL SC SCH (08:15)
[2024-07-15] MEDS ORDERED: Electrolyte Replacement Protocol 1 EACH FS ONE (08:55)
[2024-07-15 09:23] LABS: Magnesium 1.5 mg/dL (1.6-2.6)
[2024-07-15] MEDS: Acyclovir 400 mg Tablet PO SCH ×2 (10:10→21:46)
[2024-07-15] MEDS: NIFEdipine XL 30 MG ER.TAB PO SCH (10:10)
[2024-07-15] MEDS ORDERED: Electrolyte Replacement Protocol FS PRN (10:30)
[2024-07-15] MEDS: Magnesium 2 GM/50 ML(in water) 2 GM in Premix 1 BAG IVPB SCH (13:58)
[2024-07-15] MEDS: Potassium Chloride 20 MEQ TAB PO SCH (13:58)
[2024-07-15] MEDS: Cholecalciferol 1,000 UNITS (25 MCG) TAB PO SCH (21:46)
[2024-07-15] MEDS: Cyanocobalamin (Vitamin B-12) 1,000 MCG TAB PO SCH (21:46)
[2024-07-15] MEDS: Folic Acid 1 MG TAB PO SCH (21:47)
[2024-07-15] MEDS: Methylcellulose 500 MG TAB PO SCH (21:47)
[2024-07-15] MEDS: Pantoprazole 40 MG DR.TAB PO SCH (21:47)
[2024-07-15] MEDS: Insulin Glargine 30 UNITS/0.3 ML VIAL SC SCH (21:47)
[2024-07-16 05:28] LABS: #Basophils 0.05 10x3/uL (0.0-0.2); %Basophils 0.8 % (0.0-1.0); %Eosinophils 1.2 % (0.0-10.0); %Lymphocytes 28.7 % (21.0-51.0); %Monocytes 9.3 % (0.0-10.0); %Neutrophils 59.7 % (42.0-75.0); Hematocrit 28.4 % (36.0-47.0); Hemoglobin 8.4 g/dL (12.0-16.0); Mean Corpuscular HGB CONC 29.6 g/dL (32.0-36.0); Mean Corpuscular Hemoglobin 21.8 pg (27.0-31.0); Mean Corpuscular Volume 73.8 fL (78.0-98.0); Mean Platelet Volume 9.6 fL (7.4-10.4); Platelet Count 284 10x3/uL (130-400); RBC Distribution Width 18.7 % (11.5-14.5); Red Blood Cell (RBC) Count 3.85 mill/uL (4.20-5.40)
[2024-07-16 06:10] LABS: Anion Gap 12 mmol/L (10-20); BUN (Urea Nitrogen) 10 mg/dL (7.0-18.7); Calc. Creatinine Clearance 103 mL/min (70-130); Calcium 8.5 mg/dL (7.8-10.44); Carbon Dioxide 21 mmol/L (22-29); Chloride 105 mmol/L (98-107); Estimated GFR 72; Glucose 179 mg/dL (70-105); Iron 46 ug/dL (50-170); Iron Binding Capacity, Total 324 mcg/dL (265-497); Magnesium 1.6 mg/dL (1.6-2.6); Potassium 4.1 mmol/L (3.5-5.1); Sodium 134 mmol/L (136-145)
[2024-07-16 06:11] LABS: Iron 44 ug/dL (50-170); Iron Binding Capacity, Total 326 mcg/dL (265-497)
[2024-07-16] MEDS: Magnesium 2 GM/50 ML(in water) 2 GM in Premix 1 BAG IVPB SCH (09:10)
[2024-07-16] MEDS: FLU (Fluarix Triv) TS24-25(6MOS UP)/PF 45 MCG/0.5 ML Syringe IM ONE (09:58)
[2024-07-16 11:42] VITALS: BP 184/96; TEMP 97.9
[2024-07-16] MEDS: Apixaban 5 MG TAB PO SCH (12:20)
[2024-07-16] MEDS ORDERED: Apixaban 5 MG TAB PO SCH (21:00)
== END 2024-07-16 17:24 | disposition home or self-care (01) | DRG 300 ==
LOC: ERS 18:32 → INTOOBSV 18:47 → 2NO 18:47 → OBSVTOIN 07-15 13:57
PROVIDERS: ADMIT Internal Medicine; ATTEND Internal Medicine
PROC: 30233N1 Transfusion of Nonautologous Red Blood Cells into Peripheral Vein, Percutaneous Approach (ICD-10-PCS; principal; 2024-07-15)
DX: I82.412 Acute embolism and thrombosis of left femoral vein (principal); E87.1 Hypo-osmolality and hyponatremia; N17.9 Acute kidney failure, unspecified; I82.432 Acute embolism and thrombosis of left popliteal vein; E78.5 Hyperlipidemia, unspecified; F17.210 Nicotine dependence, cigarettes, uncomplicated; D64.9 Anemia, unspecified; F32.A Depression, unspecified; E11.65 Type 2 diabetes mellitus with hyperglycemia; N92.0 Excessive and frequent menstruation with regular cycle; I12.9 Hypertensive chronic kidney disease with stage 1 through stage 4 chronic kidney disease, or unspecified chronic kidney disease; E87.6 Hypokalemia; E83.42 Hypomagnesemia; N18.2 Chronic kidney disease, stage 2 (mild); E11.22 Type 2 diabetes mellitus with diabetic chronic kidney disease; Z21 Asymptomatic human immunodeficiency virus [HIV] infection status; Z88.5 Allergy status to narcotic agent; Z88.8 Allergy status to other drugs, medicaments and biological substances; Z90.722 Acquired absence of ovaries, bilateral; Z98.51 Tubal ligation status; Z90.49 Acquired absence of other specified parts of digestive tract; Z98.890 Other specified postprocedural states; D25.9 Leiomyoma of uterus, unspecified; I16.0 Hypertensive urgency
CPT/HCPCS: 36415; 36416; 36430; 80048; 82728; 83540; 83550; 83735; 85025; 85730; 86850; 86900; 86901; 93005; 93010; J1644; J1815; J3475; J7030; P9016